=== PATIENT | female | born 1965 | race Caucasian/White ===

== ENCOUNTER 2018-06-13 20:09 | Emergency (ER) | payer SELFPAY ==
[2018-06-13 21:21] LABS: Urine Blood NEGATIVE (NEG); Urine Glucose NEGATIVE (NEG); Urine Protein NEGATIVE (NEG); Urine Specific Gravity >1.030 (1.005-1.030)
[2018-06-13] MEDS ORDERED: NA CHLORIDE 0.9% 1,000 ML ONE (21:31)
[2018-06-13 21:52] LABS: Absolute Lymphocytes (CBC) 2.6 K/uL (0.7-4.9); Absolute Neutrophil 5.4 K/uL (1.8-8.0); Basophils % 0.3 % (0-1.3); Eosinophils % 2.2 % (0-4.4); Hematocrit 37.6 % (36.0-45.0); Lymphocytes % 28.5 % (15.3-44.8); MCH 32.5 pg (27.0-35.0); MCV 93.4 fL (80-100); MPV 8.9 fL (7.6-11.3); Monocytes % 10.5 % (3.3-12.3); RBC Red Blood Cell Count 4.03 M/uL (3.86-4.86)
[2018-06-13 21:58] LABS: Protime INR 1.03
[2018-06-13 22:04] LABS: ALT/SGPT 22 U/L (12-78); AST/SGOT 15 U/L (15-37); Albumin 3.3 g/dL (3.4-5.0); Alkaline Phosphatase 105 U/L (45-117); BUN Blood Urea Nitrogen 17 mg/dL (7-18); Bicarbonate 28 mmol/L (21-32); Bilirubin Direct < 0.1 mg/dL (0-0.2); Bilirubin Total 0.2 mg/dL (0.2-1.0); CKMB Creatine Kinase MB < 1.0 ng/mL (0.3-3.6); Creatine Phosphokinase 64 U/L (26-192); Glucose Level 109 mg/dL (74-106); Lipase 270 U/L (73-393); Magnesium 2.2 mg/dL (1.8-2.4); NT PRO-BNP 94 pg/mL (<125); Potassium 3.6 mmol/L (3.5-5.1); Protein, Total 6.7 g/dL (6.4-8.2); Sodium Level 144 mmol/L (136-145)
--- NOTE | 2018-06-13 22:08 | RAD REPORT ---
EXAM DESCRIPTION: RAD - Chest Single View - 06/13/2018 9:32 pm CLINICAL HISTORY: Back pain, cough, chills, body aches COMPARISON: None. TECHNIQUE: AP portable chest image was obtained 2120 hours . FINDINGS: Lungs are clear. Heart and vasculature are normal. No measurable pleural effusion and no p neumothorax. No acute bone finding. Old rib trauma noted on the left. Old rib trauma noted lateral ri ght mid chest. No acute aortic findings suspected. IMPRESSION: No acute cardiopulmonary process.
[2018-06-13] MEDS ORDERED: AZITHROMYCIN 500 MG/250 ML BAG ONE (22:26)
[2018-06-13] MEDS ORDERED: CEFTRIAXONE/SWI 1gm 1 GM/10 ML SYR ONE (22:26)
--- NOTE | 2018-06-13 22:30 | EDPHYS ---
Physician Documentation [facility] Name: Yu Oakes Age: 52 yrs Sex: Female : 1965 Arrival Date: 06/13/2018 Time: 20:23 Bed 28 Private MD: ED Physician Eitan Beverly HPI: 06/13 20:55 This 52 yrs old Female presents to ER via Ambulatory with complaints of Body stacey aches, Cough, Back Pain. 20:55 The patient or guardian reports cough. Onset: The symptoms/episode began/occurred 2 stacey day(s) ago. Severity of symptoms: At their worst the symptoms were mild, moderate. Modifying factors: The symptoms are alleviated by nothing. Modifying factors: the symptoms are aggravated by heat. Associated signs and symptoms: Pertinent positives: fever. The patient has experienced similar episodes in the past, a few times. 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 - Social history:: Smoking status: Patient uses tobacco products, smokes one-half pack cigarettes per day. - Ebola Screening: : No symptoms or risks identified at this time. - Family history:: not pertinent. ROS: 20:55 Constitutional: Negative for fever, chills, and weight loss, Eyes: Negative for injury, stacey pain, redness, and discharge, ENT: Negative for injury, pain, and discharge, Neck: Negative for injury, pain, and swelling, Cardiovascular: Negative for chest pain, palpitations, and edema, Abdomen/GI: Negative for abdominal pain, nausea, vomiting, diarrhea, and constipation, Back: Negative for injury and pain, : Negative for injury, bleeding, discharge, and swelling, MS/Extremity: Negative for injury and deformity, Skin: Negative for injury, rash, and discoloration, Psych: Negative for depression, anxiety, suicide ideation, homicidal ideation, and hallucinations, Allergy/Immunology: Negative for hives, rash, and allergies, Endocrine: Negative for neck swelling, polydipsia, polyuria, polyphagia, and marked weight changes. 20:55 Respiratory: Positive for cough. 20:55 Neuro: Positive for weakness. Exam: 20:55 Constitutional: This is a well developed, well nourished patient who is awake, alert, stacey and in no acute distress. Head/Face: Normocephalic, atraumatic. Eyes: Pupils equal round and reactive to light, extra-ocular motions intact. Lids and lashes normal. Conjunctiva and sclera are non-icteric and not injected. Cornea within normal limits. Periorbital areas with no swelling, redness, or edema. ENT: Nares patent. No nasal discharge, no septal abnormalities noted. Tympanic membranes are normal and external auditory canals are clear. Oropharynx with no redness, swelling, or masses, exudates, or evidence of obstruction, uvula midline. Mucous membranes moist. Neck: Trachea midline, no thyromegaly or masses palpated, and no cervical lymphadenopathy. Supple, full range of motion without nuchal rigidity, or vertebral point tenderness. No Meningismus. Chest/axilla: Normal chest wall appearance and motion. Nontender with no deformity. No lesions are appreciated. Cardiovascular: Regular rate and rhythm with a normal S1 and S2. No gallops, murmurs, or rubs. Normal PMI, no JVD. No pulse deficits. Abdomen/GI: Soft, non-tender, with normal bowel sounds. No distension or tympany. No guarding or rebound. No evidence of tenderness throughout. Back: No spinal tenderness. No costovertebral tenderness. Full range of motion. Pelvic Exam: Normal external genitalia. Speculum exam with closed cervical os, no discharge or bleeding noted. Bimanual exam with normal adnexa, no adnexal or cervical motion tenderness. Normal uterus. Female : Normal external genitalia. Skin: Warm, dry with normal turgor. Normal color with no rashes, no lesions, and no evidence of cellulitis. MS/ Extremity: Pulses equal, no cyanosis. Neurovascular intact. Full, normal range of motion. Neuro: Awake and alert, GCS 15, oriented to person, place, time, and situation. Cranial nerves II-XII grossly intact. Motor strength 5/5 in all extremities. Sensory grossly intact. Cerebellar exam normal. Normal gait. Psych: Awake, alert, with orientation to person, place and time. Behavior, mood, and affect are within normal limits. 20:55 Respiratory: the patient does not display signs of respiratory distress, Respirations: normal, Breath sounds: bronchial sounds, rhonchi. 22:30 Neck: ROM/movement: is normal, no acute changes, Meningeal signs: are not present, stacey Kernig's sign is negative, Brudzinski's sign is negative. Vital Signs: 20:24 BP 102 / 80; Pulse 76; Resp 19; Temp 97.4; Pulse Ox 100% on R/A; Weight 61.23 kg; la1 Height 5 ft. 9 in. (175.26 cm); 21:23 BP 97 / 66; Pulse 58; Resp 22; Pulse Ox 99% on R/A; Pain 4/10; ed1 22:37 BP 106 / 71; Pulse 61; Resp 18; Pulse Ox 99% on R/A; kr2 23:51 BP 110 / 70; Pulse 60; Resp 17; Pulse Ox 99% on R/A; kr2 20:24 Body Mass Index 19.94 (61.23 kg, 175.26 cm) la1 MDM: 20:39 Patient medically screened. [facility] 20:57 Data reviewed: vital signs, nurses notes, lab test result(s), EKG, radiologic studies, [facility] plain films. 06/13 20:54 Order name: Basic Metabolic Panel; Complete Time: 22:29 [facility] 06/13 20:54 Order name: CBC with Diff; Complete Time: 22:29 [facility] 06/13 20:54 Order name: Ckmb; Complete Time: 22:29 [facility] 06/13 20:54 Order name: CPK; Complete Time: 22:29 [facility] 06/13 20:54 Order name: LFT's; Complete Time: 22:29 [facility] 06/13 20:54 Order name: Magnesium; Complete Time: 22:29 [facility] 06/13 20:54 Order name: NT PRO-BNP; Complete Time: 22:29 [facility] 06/13 20:54 Order name: PT-INR; Complete Time: 22:29 [facility] 06/13 20:54 Order name: Ptt, Activated; Complete Time: 22:29 [facility] 06/13 20:54 Order name: Troponin (emerg Dept Use Only); Complete Time: 22:29 [facility] 06/13 20:54 Order name: Lipase; Complete Time: 22:29 [facility] 06/13 20:54 Order name: Blood Culture Adult (2) [facility] 06/13 20:54 Order name: Flu; Complete Time: 22:29 [facility] 06/13 21:19 Order name: Urine Dipstick--Ancillary (enter results); Complete Time: 22:29 [facility] 06/13 20:54 Order name: XRAY Chest (1 view); Complete Time: 22:29 [facility] 06/13 20:54 Order name: EKG; Complete Time: 20:55 [facility] 06/13 20:54 Order name: Cardiac monitoring; Complete Time: 21:18 [facility] 06/13 20:54 Order name: EKG - Nurse/Tech; Complete Time: 22:18 [facility] 06/13 20:54 Order name: IV Saline Lock; Complete Time: 22:18 [facility] 06/13 20:54 Order name: Labs collected and sent; Complete Time: 22:19 [facility] 06/13 20:54 Order name: O2 Per Protocol; Complete Time: 21:19 [facility] 06/13 20:54 Order name: O2 Sat Monitoring; Complete Time: 21:19 [facility] 06/13 20:54 Order name: Urine Dipstick-Ancillary (obtain specimen); Complete Time: 21:19 [facility] Administered Medications: 21:29 Drug: NS 0.9% 1000 ml Route: IV; Rate: 1 bolus; Site: left forearm; ed1 23:49 Follow up: Response: No adverse reaction; IV Status: Completed infusion kr2 22:35 Drug: Rocephin - (cefTRIAXone) 1 grams Route: IVPB; Infused Over: 30 mins; Site: left kr2 forearm; 23:00 Follow up: Response: No adverse reaction; IV Status: Completed infusion kr2 22:45 Drug: Zithromax 500 mg Route: IVPB; Infused Over: 1 hrs; Site: left forearm; kr2 23:50 Follow up: Response: No adverse reaction; IV Status: Completed infusion kr2 Disposition: 06/13/18 22:29 Discharged to Home. Impression: Bronchitis, not specified as acute or chronic, Acute upper respiratory infection, unspecified, Tobacco abuse counseling. - Condition is Stable. - Discharge Instructions: Acute Bronchitis, Adult, Steps to Quit Smoking, Smoking Hazards, Upper Respiratory Infection, Adult, Cool Mist Vaporizer, Upper Respiratory Infection, Adult, Ucfq-vs-Isld, Cough, Adult, Mfin-ro-Vdod, Cough, Adult. - Prescriptions for Cheratussin AC 10- 100 mg/5 mL Oral liquid - take 10 milliliter by ORAL route every 4 hours; 150 milliliter. Zithromax Z- Sathish 250 mg Oral Tablet - take 1 tablet by ORAL route as directed for 5 days Day 1 - take two (2) tablets one time. Day 2, 3, 4 , 5 take one (1) tablet once daily.; 6 tablet. - Medication Reconciliation Form, Thank You Letter, Antibiotic Education, Prescription Opioid Use form. - Follow up: Private Physician; When: 2 - 3 days; Reason: Recheck today's complaints, Continuance of care, Re-evaluation by your physician. - Problem is new. - Symptoms have improved. Signatures: Dispatcher [employer] EDAZ Eitan Beverly MD MD cha Riggs, Erika, REIMBURSEMENT CONSULTANT REIMBURSEMENT CONSULTANT ed1 Nehemiah Valladares RN RN la1 Ashlie John RN RN kr2 Corrections: (The following items were deleted from the chart) 23:53 22:29 06/13/2018 22:29 Discharged to Home. Impression: Bronchitis, not specified as kr2 acute or chronic; Acute upper respiratory infection, unspecified; Tobacco abuse counseling. Condition is Stable. Discharge Instructions: Acute Bronchitis, Adult, Steps to Quit Smoking, Smoking Hazards, Upper Respiratory Infection, Adult, Cool Mist Vaporizer, Upper Respiratory Infection, Adult, Hlif-bt-Taxm, Cough, Adult, Azps-ar-Izjx, Cough, Adult. Prescriptions for Cheratussin AC 10-100 mg/5 mL Oral liquid - take 10 milliliter by ORAL route every 4 hours; 150 milliliter, Zithromax Z-Sathish 250 mg Oral Tablet - take 1 tablet by ORAL route as directed for 5 days Day 1 - take two (2) tablets one time. Day 2, 3, 4 , 5 take one (1) tablet once daily.; 6 tablet. and Forms are Medication Reconciliation Form, Thank You Letter, Antibiotic Education, Prescription Opioid Use. Follow up: Private Physician; When: 2 - 3 days; Reason: Recheck today's complaints, Continuance of care, Re-evaluation by your physician. Problem is new. Symptoms have improved. stacey
--- NOTE | 2018-06-13 22:30 | ER ---
Nurse's Notes [facility] Name: Yu Oakes Age: 52 yrs Sex: Female : 1965 Arrival Date: 06/13/2018 Time: 20:23 Bed 28 Private MD: Diagnosis: Bronchitis, not specified as acute or chronic;Acute upper respiratory infection, unspecified;Tobacco abuse counseling Presentation: 06/13 20:23 Presenting complaint: Patient states: I think I got head exhaustion last week and I la1 cant get over it. Pt reports body aches, back pain, cough, chills that all started about a week ago. Transition of care: patient was not received from another setting of care. Onset of symptoms was June 13, 2018. Risk Assessment: Do you want to hurt yourself or someone else? Patient reports no desire to harm self or others. Initial Sepsis Screen: Does the patient meet any 2 criteria? No. Patient's initial sepsis screen is negative. Does the patient have a suspected source of infection? No. Patient's initial sepsis screen is negative. Care prior to arrival: None. 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 - Social history:: Smoking status: Patient uses tobacco products, smokes one-half pack cigarettes per day. - Ebola Screening: : No symptoms or risks identified at this time. - Family history:: not pertinent. Screenin:27 Abuse screen: Denies threats or abuse. Denies injuries from another. Nutritional ed1 screening: No deficits noted. Tuberculosis screening: No symptoms or risk factors identified. Fall Risk None identified. Assessment: 20:27 General: Appears in no apparent distress. Behavior is calm, cooperative. Pain: ed1 Complains of pain in back Pain does not radiate. Quality of pain is described as aching, Pain began 2-3 days ago. Neuro: Level of Consciousness is awake, alert, obeys commands, Oriented to person, place, time, situation. Cardiovascular: Denies chest pain, Heart tones S1 S2 present. Respiratory: Reports cough that is non-productive, Airway is patent Respiratory effort is even, unlabored, Respiratory pattern is regular, symmetrical, Breath sounds are clear bilaterally. GI: No signs and/or symptoms were reported involving the gastrointestinal system. : No signs and/or symptoms were reported regarding the genitourinary system. EENT: No signs and/or symptoms were reported regarding the EENT system. Derm: Skin is pink, warm \T\ dry. Musculoskeletal: Circulation, motion, and sensation intact. 20:30 Reassessment: I agree with the above assessment. fc 21:23 Reassessment: Patient appears in no apparent distress at this time. No changes from ed1 previously documented assessment. Patient and/or family updated on plan of care and expected duration. Pain level reassessed. Patient is alert, oriented x 3, equal unlabored respirations, skin warm/dry/pink. Patient states symptoms have not improved. 22:37 Reassessment: Patient appears in no apparent distress at this time. Patient and/or kr2 family updated on plan of care and expected duration. Pain level reassessed. Patient is alert, oriented x 3, equal unlabored respirations, skin warm/dry/pink. Patient states feeling better. 23:06 Reassessment: Patient appears in no apparent distress at this time. Waiting for IV kr2 antibiotics to complete prior to discharge. 23:52 Reassessment: Patient appears in no apparent distress at this time. Patient and/or kr2 family updated on plan of care and expected duration. Pain level reassessed. Patient is alert, oriented x 3, equal unlabored respirations, skin warm/dry/pink. Patient states feeling better. Patient states symptoms have improved. Vital Signs: 20:24 BP 102 / 80; Pulse 76; Resp 19; Temp 97.4; Pulse Ox 100% on R/A; Weight 61.23 kg; la1 Height 5 ft. 9 in. (175.26 cm); 21:23 BP 97 / 66; Pulse 58; Resp 22; Pulse Ox 99% on R/A; Pain 4/10; ed1 22:37 BP 106 / 71; Pulse 61; Resp 18; Pulse Ox 99% on R/A; kr2 23:51 BP 110 / 70; Pulse 60; Resp 17; Pulse Ox 99% on R/A; kr2 20:24 Body Mass Index 19.94 (61.23 kg, 175.26 cm) la1 ED Course: 20:23 Patient arrived in ED. la1 20:24 Triage completed. la1 20:25 Arm band placed on right wrist. la1 20:26 Viry Bray LVN is Primary Nurse. ed1 20:27 Awaiting ED provider evaluation. ed1 20:27 Patient has correct armband on for positive identification. Bed in low position. Call ed1 light in reach. 20:39 Eitan Beverly MD is Attending Physician. stacey 21:25 Inserted saline lock: 22 gauge in left forearm, using aseptic technique. jp3 21:30 XRAY Chest (1 view) In Process Unspecified. EDMS 21:30 Initial lab(s) drawn, by fl, sent to lab. jp3 21:38 First set of blood cultures drawn drawn from left wrist via 21-gauge butterfly needle. jp3 21:45 Primary Nurse role handed off by Viry Bray LVN ed1 21:55 EKG done, by ED staff, reviewed by Eitan Beverly MD. kr2 21:58 Ashlie John, RN is Primary Nurse. kr2 22:00 Second set of blood cultures drawn drawn from Right A/C via 21-gauge butterfly needle. jp3 23:52 No provider procedures requiring assistance completed. IV discontinued, intact, kr2 bleeding controlled, No redness/swelling at site. Pressure dressing applied. Administered Medications: 21:29 Drug: NS 0.9% 1000 ml Route: IV; Rate: 1 bolus; Site: left forearm; ed1 23:49 Follow up: Response: No adverse reaction; IV Status: Completed infusion kr2 22:35 Drug: Rocephin - (cefTRIAXone) 1 grams Route: IVPB; Infused Over: 30 mins; Site: left kr2 forearm; 23:00 Follow up: Response: No adverse reaction; IV Status: Completed infusion kr2 22:45 Drug: Zithromax 500 mg Route: IVPB; Infused Over: 1 hrs; Site: left forearm; kr2 23:50 Follow up: Response: No adverse reaction; IV Status: Completed infusion kr2 Outcome: 22:29 Discharge ordered by . stacey 23:52 Discharged to home ambulatory. kr2 23:52 Condition: improved 23:52 Discharge instructions given to patient, Instructed on discharge instructions, follow up and referral plans. medication usage, Demonstrated understanding of instructions, follow-up care, medications, Prescriptions given X 2. 23:53 Patient left the ED. kr2 Signatures: Dispatcher [employer] EDMS Eitan Beverly MD MD cha Chretien, Felicia, RN RN Viry Guadalupe LVN REGISTERED PHARMACIST ed1 Nehemiah Valladares RN RN la1 Ashlie John RN RN kr2 Sadi Olivares jp3 Corrections: (The following items were deleted from the chart) 22:56 22:35 Rocephin - (cefTRIAXone) 1 grams IVPB in left antecubital over 30 mins kr2 kr2 22:56 22:45 Zithromax 500 mg IVPB in left antecubital over 1 hrs kr2 kr2
--- NOTE | 2018-06-14 06:52 | EKG ---
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
== END 2018-06-13 23:53 | disposition home or self-care (01) ==
LOC: ER 20:09
DX: J40 Bronchitis, not specified as acute or chronic (principal); J06.9 Acute upper respiratory infection, unspecified; F17.210 Nicotine dependence, cigarettes, uncomplicated
CPT/HCPCS: 36415; 71045; 80048; 80076; 81003; 82550; 82553; 83690; 83735; 83880; 84484; 85025; 85610; 85730; 87040; 87804; 93005; 96361; 96365; 96368; 99284; J0456; J0696; J7030

== ENCOUNTER 2019-01-16 12:37 | Emergency (ER) | payer SELFPAY ==
[2019-01-16] MEDS ORDERED: IBUPROFEN 400 MG TAB ONE (13:55)
--- NOTE | 2019-01-16 14:08 | EDPHYS ---
Physician Documentation [facility] Name: Yu Oakes Age: 53 yrs Sex: Female : 1965 Arrival Date: 01/16/2019 Time: 12:41 Bed 11 Private MD: None, None ED Physician Bogdan Min HPI: 01/16 14:00 This 53 yrs old Female presents to ER via Ambulatory with complaints of Flu cp Symptoms. 14:00 The patient or guardian reports flu symptoms, body aches. Onset: The symptoms/episode cp began/occurred yesterday. Associated signs and symptoms: Pertinent positives: earache, sore throat, headache. Severity of symptoms: in the emergency department the symptoms are unchanged despite home interventions. Historical: - Allergies: 13:07 Levaquin; ss - Home Meds: 13:07 None [Active]; ss - PMHx: 13:07 None; ss - PSHx: 13:07 Cholecystectomy; ss - Immunization history:: Adult Immunizations up to date. - Social history:: Smoking status: Patient uses tobacco products, smokes one-half pack cigarettes per day. - Ebola Screening: : Patient denies exposure to infectious person Patient denies travel to an Ebola-affected area in the 21 days before illness onset. ROS: 14:01 Eyes: Negative for injury, pain, redness, and discharge. cp 14:01 Constitutional: Positive for body aches, chills, Negative for fever, poor PO intake. 14:01 ENT: Positive for ear pain, sore throat, Negative for drainage from ear(s), difficulty swallowing, difficulty handling secretions. 14:01 Respiratory: Positive for cough, Negative for wheezing. 14:01 Abdomen/GI: Negative for abdominal pain, nausea, vomiting, and diarrhea. 14:01 Skin: Negative for cellulitis, rash. 14:01 Neuro: Positive for headache, Negative for altered mental status, dizziness, weakness. 14:01 All other systems are negative. Exam: 14:03 Head/Face: Normocephalic, atraumatic. cp 14:03 Constitutional: The patient appears in no acute distress, alert, awake, non-toxic, well developed, well nourished. 14:03 Eyes: Periorbital structures: appear normal, Conjunctiva: normal, no exudate, no injection, Lids and lashes: appear normal, bilaterally. 14:03 ENT: External ear(s): are unremarkable, Ear canal(s): are normal, clear, TM's: bulging, is not appreciated, bilaterally, erythema, that is mild, on the left, Examination of the other ear shows no obvious abnormality, Nose: is normal, Mouth: Lips: moist, Oral mucosa: moist, Posterior pharynx: Airway: no evidence of obstruction, patent, Tonsils: with erythema, no enlargement, no exudate, swelling, is not appreciated, erythema, that is moderate, exudate, is not appreciated, Voice: is normal. 14:03 Neck: ROM/movement: limited range of motion, is not appreciated, Meningeal signs: are not present, nuchal rigidity, is not appreciated. 14:03 Chest/axilla: Inspection: normal, Palpation: is normal, no crepitus, no tenderness. 14:03 Cardiovascular: Rate: normal, Rhythm: regular. 14:03 Respiratory: the patient does not display signs of respiratory distress, Respirations: normal, no use of accessory muscles, no retractions, no splinting, no tachypnea, labored breathing, is not present, Breath sounds: are clear throughout, no decreased breath sounds, no stridor, no wheezing. 14:03 Abdomen/GI: Exam negative for discomfort, distension, guarding, Inspection: abdomen appears normal. 14:03 Skin: cellulitis, is not appreciated, no rash present. Vital Signs: 13:05 BP 100 / 71; Pulse 73; Resp 17; Temp 97.5(TE); Pulse Ox 100% on R/A; Weight 63.5 kg; ss Height 5 ft. 9 in. (175.26 cm); Pain 7/10; 13:05 Body Mass Index 20.67 (63.50 kg, 175.26 cm) ss MDM: 13:28 Patient medically screened. cp 13:35 Differential diagnosis: bronchitis, flu, URI, strep throat, pneumonia. cp 14:06 Data reviewed: vital signs, nurses notes, lab test result(s), and as a result, I will cp discharge patient. 14:06 Counseling: I had a detailed discussion with the patient and/or guardian regarding: the cp historical points, exam findings, and any diagnostic results supporting the discharge/admit diagnosis, lab results, to return to the emergency department if symptoms worsen or persist or if there are any questions or concerns that arise at home. 01/16 13:08 Order name: Flu; Complete Time: 13:59 ss 01/16 13:59 Interpretation: Reviewed. cp 01/16 13:08 Order name: Strep; Complete Time: 13:59 ss 01/16 13:52 Order name: Throat Culture EDMS Administered Medications: 13:45 Drug: Ibuprofen 800 mg Route: PO; aa5 14:30 Follow up: Response: No adverse reaction; Pain is decreased aa5 Disposition: 14:41 Co-signature as Attending Physician, Bogdan Min MD. rn Disposition: 01/16/19 14:07 Discharged to Home. Impression: Acute pharyngitis, Otitis media, unspecified, left ear. - Condition is Stable. - Discharge Instructions: Otitis Media, Adult, Pharyngitis. - Prescriptions for Amoxicillin 875 mg Oral Tablet - take 1 tablet by ORAL route every 12 hours for 10 days; 20 tablet. Ibuprofen 800 mg Oral Tablet - take 1 tablet by ORAL route every 8 hours As needed take with food; 30 tablet. - Work release form, Medication Reconciliation Form, Thank You Letter, Antibiotic Education, Prescription Opioid Use form. - Follow up: Private Physician; When: 2 - 3 days; Reason: Worsening of condition. - Problem is new. - Symptoms have improved. Signatures: Dispatcher [employer] EDMS Bogdan Min MD MD rn Calderon, Audri, RN RN aa5 Laureen Aguillon RN RN ss Page, Corey, PA PA cp Corrections: (The following items were deleted from the chart) 14:35 14:07 01/16/2019 14:07 Discharged to Home. Impression: Acute pharyngitis; Otitis media, aa5 unspecified, left ear. Condition is Stable. Forms are Medication Reconciliation Form, Thank You Letter, Antibiotic Education, Prescription Opioid Use. Follow up: Private Physician; When: 2 - 3 days; Reason: Worsening of condition. Problem is new. Symptoms have improved. cp
--- NOTE | 2019-01-16 14:08 | ER ---
Nurse's Notes [facility] Name: Yu Oakes Age: 53 yrs Sex: Female : 1965 Arrival Date: 01/16/2019 Time: 12:41 Bed 11 Private MD: None, None Diagnosis: Acute pharyngitis;Otitis media, unspecified, left ear Presentation: 01/16 13:05 Presenting complaint: Patient states: sore throat, fever and body aches since ss yesterday. Transition of care: patient was not received from another setting of care. Onset of symptoms was January 15, 2019. Risk Assessment: Do you want to hurt yourself or someone else? Patient reports no desire to harm self or others. Initial Sepsis Screen: Does the patient meet any 2 criteria? No. Patient's initial sepsis screen is negative. Does the patient have a suspected source of infection? No. Patient's initial sepsis screen is negative. Care prior to arrival: None. 13:05 Method Of Arrival: Ambulatory ss 13:05 Acuity: JEFFERSON 4 Historical: - Allergies: 13:07 Levaquin; ss - Home Meds: 13:07 None [Active]; ss - PMHx: 13:07 None; ss - PSHx: 13:07 Cholecystectomy; ss - Immunization history:: Adult Immunizations up to date. - Social history:: Smoking status: Patient uses tobacco products, smokes one-half pack cigarettes per day. - Ebola Screening: : Patient denies exposure to infectious person Patient denies travel to an Ebola-affected area in the 21 days before illness onset. Screenin:25 Abuse screen: Denies threats or abuse. Nutritional screening: No deficits noted. aa5 Tuberculosis screening: No symptoms or risk factors identified. Fall Risk None identified. Assessment: 13:25 General: Appears uncomfortable, Behavior is calm, cooperative, Reports fever for 12-24 aa5 hours. Pain: Complains of pain in whole body Pain currently is 7 out of 10 on a pain scale. Quality of pain is described as aching, Pain began 1 day ago. Is continuous. Neuro: Level of Consciousness is awake, alert, obeys commands, Oriented to person, place, time, situation. Cardiovascular: Heart tones S1 S2 present Rhythm is regular. Respiratory: Airway is patent Respiratory effort is even, unlabored, Respiratory pattern is regular, symmetrical, Breath sounds are clear bilaterally. GI: No signs and/or symptoms were reported involving the gastrointestinal system. : No signs and/or symptoms were reported regarding the genitourinary system. EENT: Reports sore throat . Derm: Skin is pink, warm \T\ dry. Musculoskeletal: Range of motion: intact in all extremities. 14:30 Reassessment: Patient is alert, oriented x 3, equal unlabored respirations, skin aa5 warm/dry/pink. Vital Signs: 13:05 BP 100 / 71; Pulse 73; Resp 17; Temp 97.5(TE); Pulse Ox 100% on R/A; Weight 63.5 kg; ss Height 5 ft. 9 in. (175.26 cm); Pain 7/10; 13:05 Body Mass Index 20.67 (63.50 kg, 175.26 cm) ED Course: 12:41 Patient arrived in ED. mr 12:42 None, None is Private Physician. mr 13:06 Triage completed. ss 13:07 Arm band placed on right wrist. ss 13:25 Patient has correct armband on for positive identification. Bed in low position. Call aa5 light in reach. Side rails up X 1. 13:27 Eitan Balderas PA is PHCP. cp 13:28 Bogdan Min MD is Attending Physician. cp 13:29 Lara Yuan, TAMARA is Primary Nurse. aa5 14:30 No provider procedures requiring assistance completed. Patient did not have IV access aa5 during this emergency room visit. Administered Medications: 13:45 Drug: Ibuprofen 800 mg Route: PO; aa5 14:30 Follow up: Response: No adverse reaction; Pain is decreased aa5 Outcome: 14:07 Discharge ordered by . cp 14:30 Discharged to home ambulatory. aa5 14:30 Condition: stable 14:30 Discharge instructions given to patient, Instructed on discharge instructions, follow up and referral plans. medication usage, Demonstrated understanding of instructions, follow-up care, medications, Prescriptions given X 2. 14:35 Patient left the ED. aa5 Signatures: [place] Driver mr Lara Yuan, RN RN aa5 Laureen Aguillon RN RN Eitan Balderas PA PA cp
== END 2019-01-16 14:35 | disposition home or self-care (01) ==
LOC: ER 12:37
DX: J02.9 Acute pharyngitis, unspecified (principal); H66.92 Otitis media, unspecified, left ear; F17.210 Nicotine dependence, cigarettes, uncomplicated; Z88.1 Allergy status to other antibiotic agents
CPT/HCPCS: 87070; 87081; 87804; 99283

== ENCOUNTER 2021-03-05 02:00 | Emergency (ER) | payer SELFPAY ==
--- OUTSIDE RECORDS SUMMARY | 2021-03-05 02:03 | XMS REPORT | Continuity of Care Document ---
:1965 Author Organization [facility] t Address [address] [place] [address] Care Team Providers Name Role Phone Unavailable Unavailable Unavailable Problems This patient has no known problems. Allergies, Adverse Reactions, Alerts This patient has no known allergies or adverse reactions. Social History Smoking Status Start Date Stop Date Source Current Every Day Smoker [facility] Medications Ordered Filled Start Stop Current Ordering Indication Dosage Frequency Signature Comments Components Source Medication Medication Date Date Medication? Clinician (SIG) Name Name Kenalog 10 Kenalog 10 No Kenalog 10 [place] mg/mL mg/mL 3-23 mg/mL da suspension suspension 17:03: suspension [facility] for for 20 for al injectionTa injectionTa injectionT Health ke 60 mg by ke 60 mg by mynor 60 mg [place] injection injection by h route. route. injection Progra m route. Kenalog 10 Kenalog 10 No 60mg Kenalog 10 [place] mg/mL mg/mL mg/mL da suspension suspension suspension [facility] for for for al injection injection injection Health Take 60 mg Take 60 mg Take 60 mg [place] by by by h injection injection injection Program route. route. route. cefdinir cefdinir No 1capsul Q12H cefdinir [place] 300 mg 300 mg e(s) 300 mg da capsule capsule capsule [facility] p Take 1 Take 1 Take 1 al capsule capsule capsule Health every 12 every 12 every 12 [place] hours by hours by hours by h oral route oral route oral route Program for 10 for 10 for 10 days. days. days. 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 Plan of Care Planned Activity Planned Date Details Comments Source Diagnostic Test 2020-01-30 CBC w/ auto diff [place] [facility] Pending 00:00:00 [code = CBC w/ Health Outrea ch auto diff] Program Diagnostic Test 2020-01-30 CMP, serum or [facility] Pending 00:00:00 plasma [code = Health Outrea ch CMP, serum or Program plasma] Diagnostic Test 2020-01-30 lipid panel, serum [facility] [facility] applic[facility] Pending 00:00:00 [code = lipid [facility] h panel, serum] Program Diagnostic Test 2020-01-30 HbA1c (hemoglobin [place] [facility] Pending 00:00:00 A1c), blood [code Health Out reach = HbA1c Program (hemoglobin A1c), blood] Diagnostic Test 2020-01-30 TSH, [facility] Pending 00:00:00 ultra-sensitive, Health Outr each serum [code = TSH, Program ultra-sensitive, serum] Encounters Start End Encounter Admission Attending Care Care Encounter Source Date/Time Date/Time Type Type Clinicians Facility Department ID 2020-01-29 2020-01-29 Temitope [place] - [id number] [place] 00:00:00 00:00:00 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 Program Results This patient has no known results.
--- NOTE | 2021-03-05 02:26 | ER ---
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 Coronavirus screen: At this time, the client does not indicate any symptoms associated with coronavirus-19. Ebola Screen: Patient negative for fever greater than or equal to 101.5 degrees Fahrenheit, and additional compatible Ebola Virus Disease symptoms Patient denies exposure to infectious person. Patient denies travel to an Ebola-affected area in the 21 days before illness onset. No symptoms or risks identified at this time. Initial Sepsis Screen: Does the patient meet any 2 criteria? No. Patient's initial sepsis screen is negative. Does the patient have a suspected source of infection? No. Patient's initial sepsis screen is negative. Risk Assessment: Do you want to hurt yourself or someone else? Patient reports no desire to harm self or others. Onset of symptoms was March 05, 2021. 02:17 Method Of Arrival: Wheelchair 02:17 Acuity: JEFFERSON 4 iw Historical: - Allergies: 02:20 Levaquin; iw - Home Meds: 02:20 None [Active]; iw - PMHx: 02:20 None; iw - PSHx: 02:20 Cholecystectomy; ectopic ; iw - Immunization history:: Adult Immunizations not up to date. - Social history:: Smoking status: Patient reports the use of cigarette tobacco products, smokes one-half pack cigarettes per day. - Family history:: not pertinent. - Hospitalizations: : No recent hospitalization is reported. Screenin:20 Abuse screen: Denies threats or abuse. Nutritional screening: No deficits noted. jb4 Tuberculosis screening: No symptoms or risk factors identified. Fall Risk None identified. Assessment: 02:20 General: Appears in no apparent distress. uncomfortable, Behavior is calm, cooperative, jb4 appropriate for age. Pain: Complains of pain in right knee Pain does not radiate. Pain currently is 10 out of 10 on a pain scale. Neuro: Level of Consciousness is awake, alert, obeys commands, Oriented to person, place, time, situation. Cardiovascular: Patient's skin is warm and dry. Respiratory: Airway is patent Respiratory effort is even, unlabored, Respiratory pattern is regular, symmetrical. GI: No signs and/or symptoms were reported involving the gastrointestinal system. : No signs and/or symptoms were reported regarding the genitourinary system. EENT: No signs and/or symptoms were reported regarding the EENT system. Derm: Skin is intact, Skin is pink, warm \T\ dry. Musculoskeletal: Circulation, motion, and sensation intact. Range of motion: intact in all extremities. Vital Signs: 02:17 BP 108 / 73; Pulse 89; Resp 16; Temp 98.0; Pulse Ox 98% on R/A; Weight 70.31 kg; Height iw 5 ft. 9 in. (175.26 cm); Pain 10/10; 02:17 Body Mass Index 22.89 (70.31 kg, 175.26 cm) ED Course: 02:03 Patient arrived in ED. ag3 02:08 Bogdan Min MD is Attending Physician. rn 02:20 Triage completed. iw 02:21 Arm band placed on. iw 02:22 Kalyan Alvarado RN is Primary Nurse. jb4 03:00 No provider procedures requiring assistance completed. Patient did not have IV access jb4 during this emergency room visit. Administered Medications: 02:33 Drug: TORadol (ketorolac) 30 mg Route: IM; Site: right deltoid; jb4 03:01 Follow up: Response: No adverse reaction; Marked relief of symptoms; Pain is decreased jb4 Outcome: 02:26 Discharge ordered by . rn 03:00 Discharged to home via wheelchair. jb4 03:00 Condition: stable 03:00 Discharge instructions given to patient, Instructed on discharge instructions, follow up and referral plans. medication usage, Demonstrated understanding of instructions, follow-up care, medications, Prescriptions given X 1. 03:01 Patient left the ED. jb4 Signatures: Corrine Heller RN RN Bogdan iMn MD MD rn Bryson, James, RN RN jb Denise Mora ag3
--- NOTE | 2021-03-05 02:26 | EDPHYS ---
Physician Documentation [facility] Name: Yu Oakes Age: 55 yrs Sex: Female : 1965 Arrival Date: 03/05/2021 Time: 02:03 Bed 14 Private MD: ED Physician Bogdan Min HPI: 03/05 02:22 This 55 yrs old Female presents to ER via Wheelchair with complaints of Knee rn Pain. 02:22 The patient presents with pain. The complaints affect the right knee. Onset: The rn symptoms/episode began/occurred yesterday. Modifying factors: The symptoms are alleviated by elevating leg, remaining still, the symptoms are aggravated by movement, weight bearing, bending knee. Severity of symptoms: At their worst the symptoms were moderate, in the emergency department the symptoms are unchanged. The patient has not experienced similar symptoms in the past. The patient has not recently seen a physician. Reports bent down, felt "something turn in knee", felt instant pain, hard to walk, no direct strike or trauma. No hx of gout or joint infection. Reports better with elevation, worse with any movement, but drove herself here. . Historical: - Allergies: 02:20 Levaquin; iw - Home Meds: 02:20 None [Active]; iw - PMHx: 02:20 None; iw - PSHx: 02:20 Cholecystectomy; ectopic ; iw - Immunization history:: Adult Immunizations not up to date. - Social history:: Smoking status: Patient reports the use of cigarette tobacco products, smokes one-half pack cigarettes per day. - Family history:: not pertinent. - Hospitalizations: : No recent hospitalization is reported. ROS: 02:22 Constitutional: Negative for fever, chills, and weight loss, MS/Extremity: + right knee rn pain and injury Neuro: Negative forweakness, numbness, tingling Exam: 02:22 Constitutional: This is a well developed, well nourished patient who is awake, alert, rn appears uncomfortable MS/ Extremity: Pulses equal, no cyanosis. Neurovascular intact. Mild painful ROM right knee, no effusion, no ecchymosis, + mild tenderness along medial right knee, no patellar abnormality or pain. Vital Signs: 02:17 BP 108 / 73; Pulse 89; Resp 16; Temp 98.0; Pulse Ox 98% on R/A; Weight 70.31 kg; Height iw 5 ft. 9 in. (175.26 cm); Pain 10/10; 02:17 Body Mass Index 22.89 (70.31 kg, 175.26 cm) iw MDM: 02:08 Patient medically screened. rn 02:22 Differential diagnosis: tendonitis, ligament sprain vs tear, meniscus injury. Data rn reviewed: vital signs, nurses notes, and as a result, I will discharge patient. Counseling: I had a detailed discussion with the patient and/or guardian regarding: the historical points, exam findings, and any diagnostic results supporting the discharge/admit diagnosis, the need for outpatient follow up, to return to the emergency department if symptoms worsen or persist or if there are any questions or concerns that arise at home. Special discussion: I discussed with the patient/guardian in detail that at this point there is no indication for admission to the hospital. It is understood, however, that if the symptoms persist or worsen the patient needs to return immediately for re-evaluation. Further emergent ED testing is not indicated at this point in time. I discussed with the patient/guardian in detail the need to arrange with the PCP or specialist further outpatient testing, MRI, Based on the history and exam findings, there is no indication for further emergent testing or inpatient evaluation. I discussed with the patient/guardian the need to see the orthopedic surgeon for further evaluation of the symptoms. I discussed with the patient/guardian the need to see the primary care provider for further evaluation of the symptoms. 03/05 02:18 Order name: Knee Immobilizer; Complete Time: :33 rn Administered Medications: :33 Drug: TORadol (ketorolac) 30 mg Route: IM; Site: right deltoid; jb4 03:01 Follow up: Response: No adverse reaction; Marked relief of symptoms; Pain is decreased jb4 Disposition: 03/05/21 02:26 Discharged to Home. Impression: Sprain of other specified parts of right knee. - Condition is Stable. - Discharge Instructions: How to Use a Knee Brace, Knee Immobilizer, Knee Sprain. - Prescriptions for Tramadol 50 mg Oral Tablet - take 1 tablet by ORAL route every 8 hours as needed; 15 tablet. - Medication Reconciliation Form, Thank You Letter, Antibiotic Education, Prescription Opioid Use, Work release form form. - Follow up: Private Physician; When: As needed; Reason: Recheck today's complaints, Re-evaluation by your physician. - Problem is new. - Symptoms are unchanged. Signatures: Corrine Heller RN RN iw Nieto, Roman, MD MD rn Bryson, James, RN RN jb4 Corrections: (The following items were deleted from the chart) 03:01 02:26 03/05/2021 02:26 Discharged to Home. Impression: Sprain of other specified parts jb4 of right knee. Condition is Stable. Forms are Medication Reconciliation Form, Thank You Letter, Antibiotic Education, Prescription Opioid Use. Follow up: Private Physician; When: As needed; Reason: Recheck today's complaints, Re-evaluation by your physician. Problem is new. Symptoms are unchanged. rn
[2021-03-05] MEDS ORDERED: KETOROLAC 30 MG/ML INJ ONE (02:47)
[2021-03-05 03:12] VITALS: BP 108/73; TEMP 98; O2SAT 98
== END 2021-03-05 03:01 | disposition home or self-care (01) ==
LOC: ER 02:00
DX: S83.8X1A Sprain of other specified parts of right knee, initial encounter (principal); F17.210 Nicotine dependence, cigarettes, uncomplicated; Z88.1 Allergy status to other antibiotic agents
CPT/HCPCS: 96372; 99283

== ENCOUNTER 2021-03-24 10:19 | Emergency (ER) | payer SELFPAY ==
--- OUTSIDE RECORDS SUMMARY | 2021-03-24 10:20 | XMS REPORT | Continuity of Care Document ---
:1965 Author Organization [facility] t Address [address] [place] [address] Care Team Providers Name Role Phone Unavailable Unavailable Unavailable Problems This patient has no known problems. Allergies, Adverse Reactions, Alerts This patient has no known allergies or adverse reactions. 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 [facility] Pending 00:00:00 [code = lipid [facility] h panel, serum] Program Diagnostic Test 2020-01-30 HbA1c (hemoglobin [place] [facility] Pending 00:00:00 A1c), blood [code Health Out reach = HbA1c Program (hemoglobin A1c), blood] Diagnostic Test 2020-01-30 TSH, [facility] Pending 00:00:00 ultra-sensitive, Health Outr each serum [code = TSH, Program ultra-sensitive, serum] Encounters Start End Encounter Admission Attending Care Care Encounter Source Date/Time Date/Time Type Type Clinicians Facility Department ID 2020-01-29 2020-01-29 Tem[place] - [id number] 3 [place] 00:00:00 00:00:00 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 Program Results This patient has no known results.
[2021-03-24 12:32] LABS: SARS-COV-2 RT PCR NEGATIVE (NEGATIVE)
[2021-03-24] MEDS ORDERED: IPRATROPIUM BROM 0.5MG/2.5ML ONE (13:01)
[2021-03-24] MEDS ORDERED: predniSONE 20 MG TAB ONE (13:01)
[2021-03-24] MEDS ORDERED: ALBUTEROL 2.5 MG/3 ML NEB SOL ONE (13:01)
--- NOTE | 2021-03-24 13:12 | ER ---
Nurse's Notes [facility] Name: Yu Oakes Age: 55 yrs Sex: Female : 1965 Arrival Date: 03/24/2021 Time: 10:19 Bed Treatment Private MD: Diagnosis: Acute sinusitis Presentation: 03/24 10:39 Chief complaint: Patient states: 03/19/2021 S/S started. Cough, congestion, body aches, ca1 headache, chills, nausea, sore throat. Coronavirus screen: Client denies travel out of the [place] in the last 14 days. chills, congestion, cough unrelated to allergies, headache, muscle pain, nausea, sore throat, Client presents with at least one sign or symptom that may indicate coronavirus-19. Standard/surgical mask placed on the client. Provider contacted for isolation considerations. Ebola Screen: Patient negative for fever greater than or equal to 101.5 degrees Fahrenheit, and additional compatible Ebola Virus Disease symptoms Patient denies exposure to infectious person. Patient denies travel to an Ebola-affected area in the 21 days before illness onset. No symptoms or risks identified at this time. Initial Sepsis Screen: Does the patient meet any 2 criteria? No. Patient's initial sepsis screen is negative. Does the patient have a suspected source of infection? No. Patient's initial sepsis screen is negative. Risk Assessment: Do you want to hurt yourself or someone else? Patient reports no desire to harm self or others. Onset of symptoms was March 19, 2021. 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 Flu vaccine is not up to date. - Social history:: Smoking status: Patient reports the use of cigarette tobacco products, smokes one-half pack cigarettes per day. Screenin:51 Abuse screen: Denies threats or abuse. Denies injuries from another. Nutritional ld1 screening: No deficits noted. Tuberculosis screening: No symptoms or risk factors identified. Fall Risk None identified. Assessment: 11:51 General: Appears in no apparent distress. comfortable, Behavior is calm, cooperative, ld1 appropriate for age. Pain: Denies pain. Neuro: Level of Consciousness is awake, alert, obeys commands, Oriented to person, place, time, situation. Cardiovascular: Capillary refill < 3 seconds Patient's skin is warm and dry. Respiratory: Airway is patent Respiratory effort is even, unlabored, Respiratory pattern is regular, symmetrical. GI: Abdomen is flat, non-distended. : No signs and/or symptoms were reported regarding the genitourinary system. EENT: No signs and/or symptoms were reported regarding the EENT system. Derm: No signs and/or symptoms reported regarding the dermatologic system. Musculoskeletal: No signs and/or symptoms reported regarding the musculoskeletal system. Vital Signs: 10:39 BP 107 / 77; Pulse 58; Resp 16 S; Temp 98.4(O); Pulse Ox 98% on R/A; Weight 71.67 kg ca1 (R); Height 5 ft. 9 in. (175.26 cm) (R); Pain 8/10; 11:51 BP 114 / 77; Pulse 56; Resp 18; Temp 98.5(O); Pulse Ox 100% on R/A; Pain 0/10; ld1 10:39 Body Mass Index 23.33 (71.67 kg, 175.26 cm) ca1 ED Course: 10:19 Patient arrived in ED. ds1 10:30 Yolanda [facility]eng [facility]C [facility]. kb 10:30 Nory Segovia MD is Attending Physician. kb 10:42 Triage completed. ca1 10:43 Arm band placed on right wrist. ca1 10:50 Strep Sent. ca1 11:51 Funmi Garcia, TAMARA is Primary Nurse. ld1 11:51 Patient has correct armband on for positive identification. Call light in reach. Side ld1 rails up X 1. Pulse ox on. NIBP on. Door closed. Noise minimized. Warm blanket given. 11:51 No provider procedures requiring assistance completed. ld1 13:19 Patient did not have IV access during this emergency room visit. ld1 Administered Medications: 12:47 Drug: predniSONE 40 mg Route: PO; ld1 13:00 Follow up: Response: No adverse reaction ld1 12:48 Drug: DuoNeb (albuterol 2.5 mg, ipratropium 0.5 mg) (3:1) (2.5 mg - 0.5 mg) 3 ml Route: ld1 Nebulizer; 13:15 Follow up: Response: No adverse reaction ld1 Outcome: 13:11 Discharge ordered by MD. martinez 13:19 Discharged to home ambulatory. ld1 13:19 Condition: stable 13:19 Discharge instructions given to patient, Instructed on discharge instructions, follow up and referral plans. medication usage, Demonstrated understanding of instructions, follow-up care, medications. 13:19 Patient left the ED. ld1 Signatures: Yolanda Zeng, AUTOMATIC TIRE TESTER-C AUTOMATIC TIRE TESTER-Yovana Paz ds1 Sariah Perez RN RN ca1 Funmi Garcia RN RN ld1 Corrections: (The following items were deleted from the chart) 11:49 10:50 Influenza Screen (A \T\ B)+BA.LAB.BRZ drawn and sent. ca1 EDMS 11:49 10:50 CORONAVIRUS+MR.LAB.BRZ drawn and sent. ca1 EDMS
--- NOTE | 2021-03-24 13:12 | EDPHYS ---
Physician Documentation [facility] Name: Yu Oakes Age: 55 yrs Sex: Female : 1965 Arrival Date: 03/24/2021 Time: 10:19 Bed Treatment Private MD: ED Physician Nory Segovia HPI: 03/24 19:02 This 55 yrs old Female presents to ER via Ambulatory with complaints of kb Chills Body Aches. 19:02 The patient or guardian reports cough, flu symptoms, myalgias. Severity of symptoms: At kb their worst the symptoms were moderate, in the emergency department the symptoms are unchanged. Modifying factors: The symptoms are alleviated by nothing, the symptoms are aggravated by nothing. Associated signs and symptoms: Pertinent positives: rhinorrhea, sore throat, Pertinent negatives: chest pain, diarrhea, ear ache, fever, nausea, vomiting. The patient has not experienced similar symptoms in the past. The patient has not recently seen a physician. 19:03 Onset: The symptoms/episode began/occurred 5 day(s) ago. 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 Flu vaccine is not up to date. - Social history:: Smoking status: Patient reports the use of cigarette tobacco products, smokes one-half pack cigarettes per day. ROS: 19:01 Cardiovascular: Negative for chest pain, palpitations, and edema. kb 19:01 Constitutional: Positive for body aches, chills, malaise. 19:01 ENT: Positive for sinus congestion, sore throat. 19:01 Respiratory: Positive for cough, Negative for dyspnea on exertion, hemoptysis, orthopnea, pleurisy, shortness of breath, sputum production, wheezing. 19:01 Neuro: Positive for headache. 19:01 All other systems are negative. Exam: 18:47 Constitutional: This is a well developed, well nourished patient who is awake, alert, kb and in no acute distress. Head/Face: Normocephalic, atraumatic. ENT: Moist Mucous membranes Cardiovascular: Regular rate and rhythm with a normal S1 and S2. No gallops, murmurs, or rubs. No pulse deficits. Abdomen/GI: Soft, non-tender. No distention Skin: Warm, dry with normal turgor. Normal color. MS/ Extremity: Pulses equal, no cyanosis. Neurovascular intact. Full, normal range of motion. Neuro: Awake and alert, GCS 15, oriented to person, place, time, and situation. Moves all extremities. Normal gait. Psych: Awake, alert, with orientation to person, place and time. Behavior, mood, and affect are within normal limits. 18:47 Respiratory: the patient does not display signs of respiratory distress, Respirations: normal, Breath sounds: wheezing: expiratory that is mild, is scattered. Vital Signs: 10:39 BP 107 / 77; Pulse 58; Resp 16 S; Temp 98.4(O); Pulse Ox 98% on R/A; Weight 71.67 kg ca1 (R); Height 5 ft. 9 in. (175.26 cm) (R); Pain 8/10; 11:51 BP 114 / 77; Pulse 56; Resp 18; Temp 98.5(O); Pulse Ox 100% on R/A; Pain 0/10; ld1 10:39 Body Mass Index 23.33 (71.67 kg, 175.26 cm) ca1 MDM: 11:39 Patient medically screened. kb 18:46 Data reviewed: vital signs, nurses notes. Data interpreted: Pulse oximetry: on room air kb is 100 %. Interpretation: normal. Counseling: I had a detailed discussion with the patient and/or guardian regarding: the historical points, exam findings, and any diagnostic results supporting the discharge/admit diagnosis, lab results, the need for outpatient follow up, a family practitioner, to return to the emergency department if symptoms worsen or persist or if there are any questions or concerns that arise at home. 03/24 10:44 Order name: Strep; Complete Time: 11:55 ca1 03/24 11:56 Order name: Throat Culture EDMS 03/24 12:33 Order name: COVID-19/FLU A+B; Complete Time: 12:44 EDMS Administered Medications: 12:47 Drug: predniSONE 40 mg Route: PO; ld1 13:00 Follow up: Response: No adverse reaction ld1 12:48 Drug: DuoNeb (albuterol 2.5 mg, ipratropium 0.5 mg) (3:1) (2.5 mg - 0.5 mg) 3 ml Route: ld1 Nebulizer; 13:15 Follow up: Response: No adverse reaction ld1 Disposition: 03/24/21 13:11 Discharged to Home. Impression: Acute sinusitis. - Condition is Stable. - Discharge Instructions: Sinusitis, Adult, [id number]. - Prescriptions for Augmentin 875- 125 mg Oral Tablet - take 1 tablet by ORAL route every 12 hours for 10 days; 20 tablet. Prednisone 20 mg Oral Tablet - take 1 tablet by ORAL route once daily for 5 days; 5 tablet. Albuterol Sulfate 90 mcg/actuation - inhale 1-2 puff by INHALATION route every 4-6 hours; 1 Inhaler. - Work release form, Medication Reconciliation Form, Thank You Letter, Antibiotic Education, Prescription Opioid Use form. - Follow up: Emergency Department; When: As needed; Reason: Worsening of condition. Follow up: Private Physician; When: 2 - 3 days; Reason: Recheck today's complaints, Continuance of care, Re-evaluation by your physician. Addendum: 04/01/2021 19:21 Co-signature as Attending Physician, Nory Segovia MD. m a2 Signatures: Dispatcher [employer] EDSD Yolanda Zeng, PLANISHING HAMMER OPERATOR-C PLANISHING HAMMER OPERATOR-CkNory Elizondo MD MD ma2 Sariah Perez RN RN ca1 Funmi Garcia RN RN ld1 Corrections: (The following items were deleted from the chart) 03/24 11:49 10:45 Influenza Screen (A \T\ B)+BA.LAB.BRZ ordered. EDSD EDMS 11:49 10:45 CORONAVIRUS+MR.LAB.BRZ ordered. EDSD EDMS 13:19 13:11 03/24/2021 13:11 Discharged to Home. Impression: Acute sinusitis. Condition is ld1 Stable. Forms are Medication Reconciliation Form, Thank You Letter, Antibiotic Education, Prescription Opioid Use. Follow up: Emergency Department; When: As needed; Reason: Worsening of condition. Follow up: Private Physician; When: 2 - 3 days; Reason: Recheck today's complaints, Continuance of care, Re-evaluation by your physician. kb
[2021-03-24 13:47] VITALS: BP 114/77; TEMP 98.5; O2SAT 100
== END 2021-03-24 13:19 | disposition home or self-care (01) ==
LOC: ER 10:19
DX: J01.90 Acute sinusitis, unspecified (principal); Z20.822 Contact with and (suspected) exposure to COVID-19; F17.210 Nicotine dependence, cigarettes, uncomplicated
CPT/HCPCS: 0240U; 87070; 87081; 99284; J7512

== ENCOUNTER 2021-10-30 15:52 | Emergency (ER) | payer SELFPAY ==
--- OUTSIDE RECORDS SUMMARY | 2021-10-30 15:55 | XMS REPORT | Continuity of Care Document ---
:[address] [facility] t Address [address] [place] [address] Care Team Providers Name Role Phone KAREN_Tata Attending Clinician Unavailable Karen Attending Clinician [phone] ANATOLIY Attending Clinician Unavailable BRANDON Admitting Clinician Unavailable ANATOLIY Admitting Clinician Unavailable Payers Payer Name Policy Type Policy Number Effective Date Expiration Date S ource Problems This patient has no known problems. Allergies, Adverse Reactions, Alerts This patient has no known allergies or adverse reactions. Social History Smoking Status Start Date Stop Date Source Current Every Day Smoker [facility] Medications Ordered Filled Start [...] h route. route. injection Progra m route. cefdinir cefdinir No 1capsul Q12H cefdinir [place] 300 mg 300 mg e(s) 300 mg da capsule capsule capsule [facility] p Take 1 Take 1 Take 1 al capsule capsule capsule Health every 12 every 12 every 12 Out reac hours by hours by hours by h oral route oral route oral route Program for 10 for 10 for 10 days. days. days. Kenalog 10 Kenalog 10 No 60mg Kenalog 10 [place] mg/mL mg/mL mg/mL da suspension suspension suspension [facility] for for for al injection injection injection Health Take 60 mg Take 60 mg Take 60 mg Outre[facility] by by by h injection injection injection Program route. route. route. Vital Signs Vital Name Observation Time Observation Value Comments Source BP Diastolic 2020-01-29 00:00:00 74 mm[Hg] [facility] Height 2020-01-29 00:00:00 69 [in_i] [facility] BMI (Body Mass 2020-01-29 00:00:00 23.2 kg/m2 [place] regulatory consultant [facility] Index) [facility] BP Systolic 2020-01-29 00:00:00 110 mm[Hg] [facility] Body Weight 2020-01-29 00:00:00 157.2 [lb_av] [facility] Procedures This patient has no known procedures. Plan of Care Planned Activity Planned Date Details Comments Source Diagnostic Test 2020-01-30 CBC w/ auto diff [place] [facility] Pending 00:00:00 [code = CBC w/ Health Outrea ch auto diff] Program Diagnostic Test 2020-01-30 CMP, serum or [facility] Pending 00:00:00 plasma [code = Health Outrea ch CMP, serum or Program plasma] Diagnostic Test 2020-01-30 lipid panel, serum [place] regulatory consultant [facility] Pending 00:00:00 [code = lipid Health Outre[facility] h panel, serum] Program Diagnostic Test 2020-01-30 HbA1c (hemoglobin [place] [facility] Pending 00:00:00 A1c), blood [code Health Out reach = HbA1c Program (hemoglobin A1c), blood] Diagnostic Test 2020-01-30 TSH, [facility] Pending 00:00:00 ultra-sensitive, Health Outr each serum [code = TSH, Program ultra-sensitive, serum] Encounters Start End Encounter Admission Attending Care Care Encounter Source Date/Time Date/Time Type Type Clinicians Facility Department ID 2021-08-28 2021-08-28 Outpatient [facility]_S [facility] [id number] [place] 11:14:00 11:14:[facility] 2021-08-28 2021-08-28 Outpatient Karen [facility] [id number] 00:00:00 00:00:00 [place] [id number] 2021-08-27 2021-08-27 Outpatient BRANDON [facility] [id number] [place] 11:31:00 11:31:00 [facility] 2020-02-05 2020-02-05 Outpatient MYRA_EL[facility] 820 [place] 12:23:00 12:23:00 _ANN [facility]30 [facility] 2020-01-29 2020-01-29 Outpatient MYRA_ELVA DECK[facility] 820 [place] 05:22:00 05:22:00 _ANN 0323 [facility] 2020-01-29 2020-01-29 Elva DECKER [place] - [id number] 3 [place] 00:00:00 00:00:00 Shannon Gray HARDWOOD FALLER: [address] [facility] [address], [facility], [place] [id number] h , Ph. Program Results This patient has no known results.
[2021-10-30] MEDS ORDERED: ACETAMINOPHEN 500 MG TAB ONE (16:18)
[2021-10-30 17:48] LABS: SARS-COV-2 RT PCR POSITIVE (NEGATIVE)
--- NOTE | 2021-10-30 17:59 | EDPHYS ---
Physician Documentation [facility] Name: Yu Oakes Age: 56 yrs Sex: Female : 1965 Arrival Date: 10/30/2021 Time: 15:59 Bed Waiting Private MD: ED Physician Ghanshyam Reyes HPI: 10/31 00:14 This 56 yrs old Female presents to ER via Ambulatory with complaints of Headache, kb Chills,Body Aches. 00:14 The patient or guardian reports cough, that is intermittent, described as mild, flu kb symptoms, myalgias. Onset: The symptoms/episode began/occurred this morning. Severity of symptoms: At their worst the symptoms were moderate, in the emergency department the symptoms are unchanged. Modifying factors: The symptoms are alleviated by nothing, the symptoms are aggravated by nothing. Associated signs and symptoms: The patient has no apparent associated signs or symptoms. The patient has not experienced similar symptoms in the past. The patient has not recently seen a physician. Pt reports headache, bodyaches and fatigue that started this morning. reports slight cough. 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 - Social history:: Smoking status: Patient reports the use of cigarette tobacco products, smokes one-half pack cigarettes per day. ROS: 10/31 00:14 Abdomen/GI: Negative for abdominal pain, nausea, vomiting, diarrhea, and constipation. kb Constitutional: Positive for body aches, fatigue, malaise. Respiratory: Positive for cough, Negative for dyspnea on exertion, hemoptysis, orthopnea, pleurisy, shortness of breath, sputum production, wheezing. All other systems are negative. Exam: 00:15 Constitutional: This is a well developed, well nourished patient who is awake, alert, kb and in no acute distress. Head/Face: Normocephalic, atraumatic. ENT: Moist Mucous membranes Cardiovascular: Regular rate and rhythm with a normal S1 and S2. No gallops, murmurs, or rubs. No pulse deficits. Respiratory: Respirations even and unlabored. No increased work of breathing. Talking in full sentences Skin: Warm, dry with normal turgor. Normal color. MS/ Extremity: Pulses equal, no cyanosis. Neurovascular intact. Full, normal range of motion. Neuro: Awake and alert, GCS 15, oriented to person, place, time, and situation. Moves all extremities. Normal gait. Psych: Awake, alert, with orientation to person, place and time. Behavior, mood, and affect are within normal limits. Vital Signs: 10/30 16:10 BP 114 / 70; Pulse 78; Resp 19; Temp 98.6; Pulse Ox 100% ; Weight 67.13 kg; Pain 10/10; jl7 MDM: 16:13 Patient medically screened. kb 10/31 00:15 Data reviewed: vital signs, nurses notes. Data interpreted: Pulse oximetry: on room air kb is 100 %. Interpretation: normal. Counseling: I had a detailed discussion with the patient and/or guardian regarding: the historical points, exam findings, and any diagnostic results supporting the discharge/admit diagnosis, lab results, the need for outpatient follow up, a family practitioner, to return to the emergency department if symptoms worsen or persist or if there are any questions or concerns that arise at home. 10/30 16:13 Order name: COVID-19/FLU A+B (Document "Date of Onset" if Symptomatic); Complete Time: kb 17:54 Administered Medications: 10/30 16:15 Drug: Tylenol 1000 mg Route: PO; ss 18:03 Follow up: Response: No adverse reaction ss Disposition Summary: 10/30/21 17:59 Discharge Ordered Location: Home kb Condition: Stable kb Diagnosis - Coronavirus infection, unspecified kb Followup: kb - With: Emergency Department - When: As needed - Reason: Worsening of condition Followup: kb - With: Private Physician - When: 2 - 3 days - Reason: Recheck today's complaints, Continuance of care, Re-evaluation by your physician Discharge Instructions: - Discharge Summary Sheet kb - Viral Respiratory Infection, [id number]-[id number] kb - COVID-19 kb Forms: - Medication Reconciliation Form kb - Thank You Letter kb - Antibiotic Education kb - Prescription Opioid Use kb Addendum: 11/04/2021 13:09 Co-signature as Attending Physician, Ghanshyam Reyes MD I agree with the assessment and k dr plan of care. Signatures: Dispatcher [employer] Yolanda Lynch, ADMISSIONS RECRUITER-C ADMISSIONS RECRUITER-Ghanshyam Rosales MD MD kdr Laureen Aguillon, RN RN ss Krystle Vega RN RN jl7
--- NOTE | 2021-10-30 17:59 | ER ---
Nurse's Notes [facility] Name: Yu Oakes Age: 56 yrs Sex: Female : 1965 Arrival Date: 10/30/2021 Time: 15:59 Bed Waiting Private MD: Diagnosis: Coronavirus infection, unspecified Presentation: 10/30 16:10 Chief complaint: Patient states: BRANDON, body aches, fatigue since this morning. [facility] Coronavirus screen: fatigue, headache, muscle pain, Client presents with at least one sign or symptom that may indicate coronavirus-19. Standard/surgical mask placed on the client. Provider contacted for isolation considerations. Ebola Screen: No symptoms or risks identified at this time. Initial Sepsis Screen: Does the patient meet any 2 criteria? No. Patient's initial sepsis screen is negative. Does the patient have a suspected source of infection? No. Patient's initial sepsis screen is negative. Risk Assessment: Do you want to hurt yourself or someone else? Patient reports no desire to harm self or others. Onset of symptoms was October 30, 2021. 16:10 Method Of Arrival: Ambulatory [facility] 16:10 Acuity: JEFFERSON 4 7 Triage Assessment: 16:12 Headache History: The patient has had previous headaches and this one is similar to jl7 previous episodes. General: Appears in no apparent distress. uncomfortable, ill, Behavior is cooperative, drowsy. Pain: Complains of pain in brandon Pain currently is 10 out of 10 on a pain scale. Pain began gradually, Also complains of no other associated symptoms. Neuro: Level of Consciousness is awake, alert, obeys commands, Oriented to person, place, time, situation. 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 - Social history:: Smoking status: Patient reports the use of cigarette tobacco products, smokes one-half pack cigarettes per day. Screenin:01 Abuse screen: Denies threats or abuse. Denies injuries from another. Nutritional ss screening: No deficits noted. Tuberculosis screening: Never had TB. Fall Risk None identified. Assessment: 16:10 Reassessment: STEFAN Guerrero in triage assessing pt. jl7 18:01 Reassessment: Patient appears in no apparent distress at this time. Patient and/or ss family updated on plan of care and expected duration. Pain level reassessed. Patient is alert, oriented x 3, equal unlabored respirations, skin warm/dry/pink. Vital Signs: 16:10 BP 114 / 70; Pulse 78; Resp 19; Temp 98.6; Pulse Ox 100% ; Weight 67.13 kg; Pain 10/10; jl7 ED Course: 15:59 Patient arrived in ED. mr 15:59 Yolanda Zeng FNP-C [facility]. kb 15:59 Ghanshyam Reyes MD is Attending Physician. kb 16:12 Triage completed. jl7 16:12 Arm band placed on right wrist. jl7 16:14 COVID swab sent to lab. Flu and/or RSV swab sent to lab. jl7 16:19 Patient placed in waiting room, Patient notified of wait time. jl7 18:01 Laureen Aguillon, RN is Primary Nurse. ss 18:01 Patient has correct armband on for positive identification. ss 18:01 No provider procedures requiring assistance completed. Patient did not have IV access ss during this emergency room visit. Administered Medications: 16:15 Drug: Tylenol 1000 mg Route: PO; ss 18:03 Follow up: Response: No adverse reaction ss Outcome: 17:59 Discharge ordered by MD. kb 18:01 Discharged to home ambulatory. ss 18:01 Condition: good 18:01 Discharge instructions given to patient, Instructed on discharge instructions, follow up and referral plans. Demonstrated understanding of instructions, follow-up care. 18:02 Patient left the ED. ss Signatures: Yolanda Zeng FNP-C FNP-Ckb Temitope Driver mr Laureen Aguillon, RN RN Krystle Vega RN RN jl7
[2021-10-30 18:19] VITALS: BP 114/70; TEMP 98.6; O2SAT 100
== END 2021-10-30 18:02 | disposition home or self-care (01) ==
LOC: ER 15:52
DX: U07.1 COVID-19 (principal); F17.210 Nicotine dependence, cigarettes, uncomplicated; Z88.1 Allergy status to other antibiotic agents
CPT/HCPCS: 0240U; 99283

== ENCOUNTER 2022-01-19 10:24 | Emergency (ER) | payer OTHER, SELFPAY ==
--- OUTSIDE RECORDS SUMMARY | 2022-01-19 10:26 | XMS REPORT | Continuity of Care Document ---
:1965 Author Organization [facility] t Address [address] [place] [address] Care Team Providers Name Role Phone KAREN_Tata Attending Clinician Unavailable Karen Attending Clinician [phone] ANATOLIY Attending Clinician Unavailable BRANDON Admitting Clinician Unavailable ANATOLIY Admitting Clinician Unavailable Payers Payer Name Policy Type Policy Number Effective Date Expiration Date S ource Problems This patient has no known problems. Allergies, Adverse Reactions, Alerts This patient has no known allergies or adverse reactions. 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 Plan of Care Planned Activity Planned Date Details Comments Source Diagnostic Test 2020-01-30 CBC w/ auto diff [place] [facility] Pending 00:00:00 [code = CBC w/ Health Outrea ch auto diff] Program Diagnostic Test 2020-01-30 CMP, serum or [place] [facility] Pending 00:00:00 plasma [code = Health Outrea ch CMP, serum or Program plasma] Diagnostic Test 2020-01-30 lipid panel, serum [place] flattening press operator [facility] Pending 00:00:00 [code = lipid Health Outre[facility] h panel, serum] Program Diagnostic Test 2020-01-30 HbA1c (hemoglobin [place] [facility] Pending 00:00:00 A1c), blood [code Health Out reach = HbA1c Program (hemoglobin A1c), blood] Diagnostic Test 2020-01-30 TSH, [place] [facility] Pending 00:00:00 ultra-sensitive, Health Outr each serum [code = TSH, Program ultra-sensitive, serum] Encounters Start End Encounter Admission Attending Care Care Encounter Source Date/Time Date/Time Type Type Clinicians Facility Department ID 2021-08-28 2021-08-28 Outpatient [facility] [id number] [place] 11:14:00 11[facility]14:00 [facility] 2021-08-28 2021-08-28 Outpatient Karen [facility] [id number] 00:00:00 00:00:00 [place] [id number] 2021-08-27 2021-08-27 Outpatient BRANDON [facility] [id number] [place] 11:31:00 11:31:00 [facility] 2020-02-05 2020-02-05 Outpatient MYRA_EL[facility] [address] [place] 12:23:00 12:23:00 _ANN 0330 [facility] 2020-01-29 2020-01-29 Outpatient MYRA_ELVA DECK[facility] 820 [place] 05:22:00 05:22:00 _ANN 0323 [facility] 2020-01-29 2020-01-29 Elva DECKER [place] - [id number] 3 [place] 00:00:00 00:00:00 Shannon Gray ROVING DEPARTMENT END 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 Program Results This patient has no known results.
[2022-01-19] MEDS ORDERED: ONDANSETRON 4 MG (ODT) TAB ONE (11:10)
[2022-01-19 12:37] LABS: Absolute Lymphocytes (CBC) 2.5 K/uL (0.7-4.9); MPV 9.3 fL (7.6-11.3)
[2022-01-19 12:56] LABS: SARS-COV-2 RT PCR POSITIVE (NEGATIVE)
[2022-01-19 13:00] LABS: ALT/SGPT 26 U/L (12-78); AST/SGOT 18 U/L (15-37); Albumin 4.1 g/dL (3.4-5.0); Alkaline Phosphatase 139 U/L (45-117); BUN Blood Urea Nitrogen 23 mg/dL (7-18); Bicarbonate 18 mmol/L (21-32); Bilirubin Total 0.2 mg/dL (0.2-1.0); Glucose Level 82 mg/dL (74-106); Lipase 85 U/L (73-393); Potassium 4.2 mmol/L (3.5-5.1); Protein, Total 8.3 g/dL (6.4-8.2); Sodium Level 139 mmol/L (136-145)
[2022-01-19 13:10] LABS: Bilirubin Direct < 0.1 mg/dL (0-0.2)
[2022-01-19] MEDS ORDERED: NA CHLORIDE 0.9% 500 ML ONE (13:46)
[2022-01-19 14:09] LABS: Urine Bacteria <20 /HPF (<20); Urine RBC <5 /HPF (NONE SEEN)
--- NOTE | 2022-01-19 14:34 | RAD REPORT ---
EXAM DESCRIPTION: CT - Abdomen Pelvis W Contrast - 01/19/2022 1:59 pm CLINICAL HISTORY: Abdominal pain/vomiting COMPARISON: none. TECHNIQUE: Computed axial tomography of the abdomen pelvis was obtained. 100 cc Isovue-300 was admin istered intravenously. Oral contrast was not requested which limits evaluation of bowel and appendix. All CT scans are performed using dose optimization technique as appropriate and may include automated exposure control or mA/KV adjustment according to patient size. FINDINGS: Cholecystectomy 5 centimeter hepatic cyst. Spleen, pancreas and adrenals unremarkable. Small renal cysts. There is no evidence of diverticulitis. Tubal ligation clips Slight anterior subluxation L4 on L5 Fluid within nondilated bowel IMPRESSION: Fluid within nondilated bowel may indicate an enteritis
--- NOTE | 2022-01-19 15:19 | EDPHYS ---
Physician Documentation [facility] Name: Yu Oakes Age: 56 yrs Sex: Female : 1965 Arrival Date: 01/19/2022 Time: 10:27 Bed 5 Private MD: ED Physician Ghanshyam Reyes HPI: 01/19 11:30 This 56 yrs old Female presents to ER via Ambulatory with complaints of cp Nausea/Vomiting/Diarrhea. 11:30 The patient presents to the emergency department with nausea, that is moderate, cp vomiting, that is intermittent. 11:30 Onset: The symptoms/episode began/occurred this morning. 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 Flu vaccine is not up to date. - Social history:: Smoking status: Patient reports the use of cigarette tobacco products, smokes one-half pack cigarettes per day. ROS: 11:35 Constitutional: Positive for body aches, chills, Negative for fever, poor PO intake. cp 11:35 Eyes: Negative for injury, pain, redness, and discharge. cp 11:35 ENT: Positive for sore throat, Negative for drainage from ear(s), ear pain, difficulty swallowing, difficulty handling secretions. 11:35 Respiratory: Positive for cough, Negative for shortness of breath, wheezing. 11:35 Abdomen/GI: Positive for nausea, vomiting, and diarrhea. Exam: 11:40 Constitutional: The patient appears in no acute distress, alert, awake, cp non-diaphoretic, non-toxic, well developed, well nourished. 11:40 Head/Face: Normocephalic, atraumatic. cp 11:40 Eyes: Periorbital structures: appear normal, Conjunctiva: normal, no exudate, no injection, Sclera: no appreciated abnormality, Lids and lashes: appear normal, bilaterally. 11:40 ENT: External ear(s): are unremarkable, Ear canal(s): are normal, clear, TM's: dullness, bilaterally, Nose: is normal, Mouth: Lips: moist, Oral mucosa: moist, Posterior pharynx: Airway: no evidence of obstruction, patent, Tonsils: no enlargement, no exudate, Uvula: midline, erythema, that is mild, exudate, is not appreciated. 11:40 Neck: ROM/movement: is normal, is supple, without pain, no range of motions limitations, no meningismus, Lymph nodes: no appreciated lymphadenopathy. 11:40 Chest/axilla: Inspection: normal. 11:40 Cardiovascular: Rate: normal, Rhythm: regular, Edema: is not appreciated, JVD: is not appreciated. 11:40 Respiratory: the patient does not display signs of respiratory distress, Respirations: normal, no use of accessory muscles, no retractions, labored breathing, is not present, Breath sounds: bronchial sounds, that are mild, are heard diffusely, decreased breath sounds, are not appreciated, stridor, is not appreciated, + upper airway congestion. 11:40 Abdomen/GI: Inspection: abdomen appears normal, Bowel sounds: active, all quadrants, Palpation: soft, in all quadrants, mild abdominal tenderness, in all quadrants, rebound tenderness, is not appreciated, voluntary guarding, is not appreciated, involuntary guarding, is not appreciated. 11:40 Back: CVA tenderness, is absent. 11:40 Skin: cellulitis, is not appreciated, no rash present. 11:40 Neuro: Orientation: to person, place \T\ time. Mentation: is normal, Motor: moves all fours, strength is normal, Sensation: is normal. 14:50 ECG was reviewed by the Attending Physician. cp Vital Signs: 11:00 BP 117 / 82; Pulse 67; Resp 17; Temp 98.2; Pulse Ox 100% ; Weight 65.77 kg; Height 5 ap3 ft. 9 in. (175.26 cm); 12:00 BP 117 / 82; Pulse 57; Resp 17 S; Pulse Ox 99% ; Pain 0/10; jg9 12:30 BP 118 / 79; Pulse 55; Resp 17 S; Pulse Ox 96% on R/A; jg9 13:48 BP 121 / 83; Pulse 59; Resp 16; Pulse Ox 98% on R/A; ab2 14:30 BP 119 / 97; Pulse 50; Resp 18 S; Pulse Ox 100% on R/A; jg9 15:28 BP 117 / 90; Pulse 56; Resp 16; Pulse Ox 98% on R/A; ab2 11:00 Body Mass Index 21.41 (65.77 kg, 175.26 cm) ap3 MDM: 12:06 Patient medically screened. 15:18 Data reviewed: vital signs, nurses notes, lab test result(s), EKG, radiologic studies, cp CT scan. 15:18 Differential diagnosis: gastritis, pancreatitis, appendicitis, diverticulitis, viral cp gastroenteritis, gastroenteritis, pneumonia, influenza, COVID-19. Test interpretation: by ED physician or midlevel provider: ECG. Counseling: I had a detailed discussion with the patient and/or guardian regarding: the historical points, exam findings, and any diagnostic results supporting the discharge/admit diagnosis, lab results, radiology results, to return to the emergency department if symptoms worsen or persist or if there are any questions or concerns that arise at home. Response to treatment: the patient's symptoms have markedly improved after treatment, and as a result, I will discharge patient. 01/19 11:02 Order name: Strep; Complete Time: 13:08 01/19 13:08 Interpretation: Reviewed. 01/19 11:03 Order name: Group A Streptococcus Rapid Sc; Complete Time: 12:03 [facility] 01/19 11:30 Order name: Throat Culture [facility] 01/19 12:10 Order name: Basic Metabolic Panel; Complete Time: 13:38 [facility] [place] 13:38 Interpretation: Normal except: CL 114; CO2 18; BUN 23; GFR 69. 01/19 12:06 Order name: PO challenge; Complete Time: 12:31 01/19 12:10 Order name: CBC with Diff; Complete Time: 13:08 [facility] [place] 13:42 Interpretation: Normal except: WBC 11.70; RBC 5.00; HGB 15.5; HCT 47.0; Reviewed. 01/19 12:10 Order name: Hepatic Function; Complete Time: 13:38 [facility] [place] 01/19 15:17 Interpretation: Normal except: ALK 139; TP 8.3; GLOB 4.2; A/G 1.0. 01/19 12:10 Order name: Lipase; Complete Time: 13:38 [facility] [place] 01/19 13:38 Order name: Urine Microscopic Only; Complete Time: 15:02 01/19 15:02 Interpretation: Reviewed. cp 01/19 13:42 Order name: CT Abd/Pelvis - IV Contrast Only; Complete Time: 15:02 cp 01/19 15:02 Interpretation: Report reviewed. cp 01/19 12:10 Order name: IV Saline Lock; Complete Time: 12:10 jg9 01/19 12:10 Order name: Labs collected and sent; Complete Time: 12:30 jg9 01/19 13:38 Order name: Urine Dipstick-Ancillary (obtain specimen); Complete Time: 13:48 01/19 14:46 Order name: EKG - Nurse/Tech; Complete Time: 14:46 jg9 EC:50 Rate is 46 beats/min. Rhythm is regular. IA interval is normal. QRS interval is normal. cp QT interval is normal. T waves are Inverted in lead aVR. Interpreted by me. Reviewed by me. Administered Medications: 11:10 Drug: Zofran (Ondansetron) 4 mg Route: PO; ap3 12:10 Follow up: Response: No adverse reaction; Nausea is decreased 9 13:48 Drug: NS 0.9% 500 ml Route: IV; Rate: bolus; Site: right forearm; ab2 Disposition: 19:30 Co-signature as Attending Physician, Ghanshyam Reyes MD I agree with the assessment and kdr plan of care. Disposition Summary: 01/19/22 15:18 Discharge Ordered Location: Home cp Problem: new cp Symptoms: have improved cp Condition: Stable cp Diagnosis - Nausea with vomiting, unspecified cp - SARS-associated coronavirus as the cause of diseases classified elsewhere cp Followup: cp - With: Private Physician - When: 2 - 3 days - Reason: Worsening of condition Discharge Instructions: - Discharge Summary Sheet cp - Nausea and Vomiting, Adult cp - Aspirin and Your Heart cp - COVID-19 cp - Things to Know about the COVID-19 Pandemic - [facility] cp - 10 Things You Can Do to Manage Your COVID-19 Symptoms at Home - [facility] cp - COVID-19: Quarantine vs. Isolation - [facility] cp - Prevent the Spread of COVID-19 if You Are Sick - [facility] cp Forms: - Medication Reconciliation Form cp - Thank You Letter cp - Antibiotic Education cp - Prescription Opioid Use cp Prescriptions: - Zofran 4 mg Oral Tablet - take 1 tablet by ORAL route every 12 hours As needed; 20 tablet; Refills: 0, cp Product Selection Permitted Signatures: Dispatcher [employer] Ghanshyam Wallace MD MD kdr Eitan Balderas PA PA cp Prokisch, Amanda RN RN ap3 Yu Maloney RN RN jg9 Hugh Wolfe Corrections: (The following items were deleted from the chart) 13:42 13:08 Reviewed. cp cp
--- NOTE | 2022-01-19 15:19 | ER ---
Nurse's Notes [facility] Name: Yu Oakes Age: 56 yrs Sex: Female : 1965 Arrival Date: 01/19/2022 Time: 10:27 Bed 5 Private MD: Diagnosis: Nausea with vomiting, unspecified;SARS-associated coronavirus as the cause of diseases classified elsewhere Presentation: 01/19 11:00 Chief complaint: Patient states: she woke up this morning experiencing nausea, ap3 vomiting, accompanied with body aches, head ache and sore throat. Patient reports feeling fine when she went to bed last night. Coronavirus screen: At this time, the client does not indicate any symptoms associated with coronavirus-19. Ebola Screen: No symptoms or risks identified at this time. Initial Sepsis Screen: Does the patient meet any 2 criteria? No. Patient's initial sepsis screen is negative. Does the patient have a suspected source of infection? No. Patient's initial sepsis screen is negative. Risk Assessment: Do you want to hurt yourself or someone else? Patient reports no desire to harm self or others. Onset of symptoms was January 19, 2022 at 03:00. 11:00 Method Of Arrival: Ambulatory ap3 11:00 Acuity: JEFFERSON 3 ap3 Triage Assessment: 11:02 General: Appears uncomfortable, Behavior is calm, cooperative. Pain: generalized body ap3 aches. Neuro: Level of Consciousness is awake, alert, obeys commands, Oriented to person, place, time, situation, Appropriate for age. Cardiovascular: Patient's skin is warm and dry. Respiratory: Reports cough that is Airway. GI: Reports lower abdominal pain, upper abdominal pain, intolerance of fluids, intolerance of food, nausea. 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 Flu vaccine is not up to date. - Social history:: Smoking status: Patient reports the use of cigarette tobacco products, smokes one-half pack cigarettes per day. Screenin:02 Abuse screen: Denies threats or abuse. Nutritional screening: No deficits noted. ap3 Tuberculosis screening: No symptoms or risk factors identified. Fall Risk None identified. No fall in past 12 months (0 pts). Assessment: 12:10 Reassessment: No changes from previously documented assessment. GI: Reports diarrhea, jg9 nausea, vomiting. Vital Signs: 11:00 BP 117 / 82; Pulse 67; Resp 17; Temp 98.2; Pulse Ox 100% ; Weight 65.77 kg; Height 5 ap3 ft. 9 in. (175.26 cm); 12:00 BP 117 / 82; Pulse 57; Resp 17 S; Pulse Ox 99% ; Pain 0/10; jg9 12:30 BP 118 / 79; Pulse 55; Resp 17 S; Pulse Ox 96% on R/A; jg9 13:48 BP 121 / 83; Pulse 59; Resp 16; Pulse Ox 98% on R/A; ab2 14:30 BP 119 / 97; Pulse 50; Resp 18 S; Pulse Ox 100% on R/A; jg9 15:28 BP 117 / 90; Pulse 56; Resp 16; Pulse Ox 98% on R/A; ab2 11:00 Body Mass Index 21.41 (65.77 kg, 175.26 cm) ap3 ED Course: 10:27 Patient arrived in ED. kz 11:01 Triage completed. ap3 11:01 Eitan Balderas PA is PHCP. cp 11:01 Ghanshyam Reyes MD is Attending Physician. cp 11:02 Arm band placed on right wrist. ap3 11:04 EKG done, Flu and/or RSV swab sent to lab. Strep swab sent to lab. ap3 12:03 Yu Maloney, TAMARA is Primary Nurse. jg9 12:10 Inserted saline lock: 22 gauge in right forearm, using aseptic technique. Blood jg9 collected. 12:11 Patient has correct armband on for positive identification. Bed in low position. Call jg9 light in reach. 13:48 Urine Microscopic Only Sent. ab2 13:59 CT Abd/Pelvis - IV Contrast Only In Process Unspecified. EDMS 14:48 No apparent distress. Resting quietly. Awaiting radiology results. jg9 15:28 No provider procedures requiring assistance completed. IV discontinued, intact, ab2 bleeding controlled, No redness/swelling at site. Pressure dressing applied. Administered Medications: 11:10 Drug: Zofran (Ondansetron) 4 mg Route: PO; ap3 12:10 Follow up: Response: No adverse reaction; Nausea is decreased jg9 13:48 Drug: NS 0.9% 500 ml Route: IV; Rate: bolus; Site: right forearm; ab2 Outcome: 15:18 Discharge ordered by MD. cp 15:28 Discharged to home ambulatory. ab2 15:28 Condition: good 15:28 Discharge instructions given to patient, Instructed on discharge instructions, follow up and referral plans. medication usage, Demonstrated understanding of instructions, follow-up care, medications, Prescriptions given X 1. 15:29 Patient left the ED. ab2 Signatures: Dispatcher [employer] EDMS Eitan Balderas PA PA cp Prokisch, Amanda RN RN ap3 Yu Maloney RN RN jg9 Hugh Wolfe ab2 Susie Zabala
[2022-01-19 15:45] VITALS: TEMP 98.2
[2022-01-19 15:52] VITALS: BP 117/90; O2SAT 98
--- NOTE | 2022-01-21 07:27 | EKG ---
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
== END 2022-01-19 15:29 | disposition home or self-care (01) ==
LOC: ER 10:24
DX: U07.1 COVID-19 (principal); F17.210 Nicotine dependence, cigarettes, uncomplicated; Z88.1 Allergy status to other antibiotic agents
CPT/HCPCS: 93005; 87070; 85025; 80048; 36415; 80076; 87081; 81015; 83690; 0240U; 74177; 99284; Q9967; J7040

== ENCOUNTER 2023-01-02 07:28 | Emergency (ER) | payer OTHER ==
--- OUTSIDE RECORDS SUMMARY | 2023-01-02 07:31 | XMS REPORT | Continuity of Care Document ---
:1965 Author Organization [facility] t Address [address] [place] [address] Care Team Providers Name Role Phone BRANDON Attending Clinician Unavailable Dmitri Mckenzie Attending Clinician [phone] Violette Phillips Attending Clinician [phone] ANATOLIY Attending Clinician Unavailable BRANDON Admitting Clinician Unavailable ANATOLIY Admitting Clinician Unavailable Payers Payer Name Policy Type Policy Number Effective Date Expiration Date S ource Problems This patient has no known problems. Allergies, Adverse Reactions, Alerts Allergy Allergy Status Severity Reaction(s) Onset Inactive Treating Comm ents Source Name Type Date Date Clinician Levaquin Allergy Active Severe Other [place] [facility] Social History Smoking Status Start Date Stop Date Source Current Every Day Smoker [place] [facility] Heavy Tobacco Smoker [place] Comm [facility] Medications Ordered Filled Start Stop Current Ordering [...] route. cefdinir cefdinir No 1capsul Q12H cefdinir [place] 300 mg 300 mg e(s) 300 mg Communi capsule capsule capsule ty Take 1 Take 1 Take 1 Hospita capsule capsule capsule l every 12 every 12 every 12 Cli nics hours by hours by hours by oral route oral route oral route for 10 for 10 for 10 days. days. days. prednisone prednisone No 1 BID prednisone [place] 20 mg 20 mg 20 mg [facility] tablet Take tablet Take tablet ty 1 tablet 1 tablet Take 1 Hospi ta twice a day twice a day tablet l by oral by oral twice a Clinic s route for 5 route for 5 day by days. days. oral route for 5 days. amoxicillin amoxicillin No 1 Q12H amoxicilli [place] 875 mg 875 mg n 875 mg Communi tablet Take tablet Take tablet ty 1 tablet 1 tablet Take 1 Hospi ta every 12 every 12 tablet l hours by hours by every 12 Cli nics oral route oral route hours by for 10 for 10 oral route days. days. for 10 days. prednisone prednisone No prednisone [place] 20 mg 20 mg 20 mg [facility] tablet 3 po tablet 3 po tablet 3 ty first day, first day, po first Hospita 2 po second 2 po second day, 2 po l day, then 1 day, then 1 second Clinics po qd until po qd until day, then finished, finished, 1 po qd total 5 total 5 until days days finished, total 5 days Vital Signs Vital Name Observation Time Observation Value Comments Source BP Diastolic 2022-04-08 00:00:00 64 mm[Hg] [facility] s Height 2022-04-08 00:00:00 69 [in_i] [facility] s BMI (Body Mass 2022-04-08 00:00:00 21.8 kg/m2 [facility]) [facility] s BP Systolic 2022-04-08 00:00:00 101 mm[Hg] [facility] s Body Weight 2022-04-08 00:00:00 2358.4 [oz_av] [facility] s BP Diastolic 2021-08-28 00:00:00 76 mm[Hg] [facility] s Height 2021-08-28 00:00:00 69 [in_i] [facility] s BMI (Body Mass 2021-08-28 00:00:00 22.4 kg/m2 [facility]) [facility] s BP Systolic 2021-08-28 00:00:00 115 mm[Hg] [facility] s Body Weight 2021-08-28 00:00:00 2432 [oz_av] [facility] s BP Diastolic 2020-01-29 00:00:00 74 mm[Hg] [place] [facility] Height 2020-01-29 00:00:00 69 [in_i] [place] [facility] BMI (Body Mass 2020-01-29 00:00:00 23.2 kg/m2 [facility] [employer] [facility] Index) [facility] Outreach Program BP Systolic 2020-01-29 00:00:00 110 mm[Hg] [place] [facility] Body Weight 2020-01-29 00:00:00 157.2 [lb_av] [place] [facility] Procedures Procedure Date / Time Performed Performing Clinician Sourc e Tubal Ligation [facility] Cholecystectomy [facility] Plan of Care Planned Activity Planned Date Details Comments Source Diagnostic Test Pending 2020-01-30 CBC w/ auto diff [place] [facility] 00:00:00 [code = CBC w/ Health Outrea ch auto diff] Program Diagnostic Test Pending 2020-01-30 CMP, serum or [place] [facility] 00:00:00 plasma [code = Health Outrea ch CMP, serum or Program plasma] Diagnostic Test Pending 2020-01-30 lipid panel, [place] [facility] [facility] 00:00:00 serum [code = Health Outreac h lipid panel, Program serum] Diagnostic Test Pending 2020-01-30 HbA1c (hemoglobin [place] [facility] 00:00:00 A1c), blood [code Health Out reach = HbA1c Program (hemoglobin A1c), blood] Diagnostic Test Pending 2020-01-30 TSH, [place] [facility] [facility] 00:00:00 ultra-sensitive, Health Outr each serum [code = Program TSH, ultra-sensitive, serum] Instructions [place] [facility] s Encounters Start End Encounter Admission Attending Care Care Encounter Source Date/Time Date/Time Type Type Clinicians Facility Department ID 2022-04-08 2022-04-08 Outpatient ALANS [facility] [id number] [place] 02:27:00 02:27:00 0601 [facility] 2022-04-08 2022-04-08 Outpatient Jonah [facility] [id number] 00:00:00 00:00:00 Dmitri [id number] Gonzales [id number] 2022-04-08 2022-04-08 Dmitri [facility] [place] 00:00:00 00:00:00 Anthony [facility] DO: [address] [facility], [facility] [address] [place] [phone] , Ph. 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 2021-08-28 2021-08-28 Outpatient Alan [facility] [id number] 00:00:00 00:00:00 Violette [id number] 2021-08-27 2021-08-27 Outpatient BRANDON [facility] [id number] [place] 11:31:00 11:31:00 1020 [facility] 2020-02-05 2020-02-05 Outpatient MYRA_TEM[facility] DECKER [id number] [place] 12:23:00 12:23:00 _ANN [facility] 2020-01-29 2020-01-29 Outpatient MYRA_TEMITOPE DECKER NDKEVEN [id number] [place] 05:22:00 05:22:00 _ANN [id number] [facility] 2020-01-29 2020-01-29 Temitope DECKER [place] - [id number] [place] 00:00:00 00:00:00 Shannon Gray da FLOOR COVERING PRINTER ASSISTANT: 1700 [facility] BACA - BRIANNE Macario, [facility], [place] Outre [phone] h , Ph. Program Results This patient has no known results.
[2023-01-02] MEDS ORDERED: KETOROLAC 30 MG/ML INJ ONE (08:16)
[2023-01-02] MEDS ORDERED: FENTANYL CITR 100 MCG/2 ML ONE (08:16)
[2023-01-02] MEDS ORDERED: dexAMETHasone 10 MG/ML VIAL ONE (08:16)
[2023-01-02] MEDS ORDERED: ONDANSETRON 4 MG/2 ML VIAL ONE (08:16)
[2023-01-02] MEDS ORDERED: CEFTRIAXONE 1000 MG/VIAL ONE (08:16)
[2023-01-02] MEDS ORDERED: NA CHLORIDE 0.9% 1,000 ML ONE (08:16)
[2023-01-02 08:44] LABS: Absolute Lymphocytes (CBC) 2.3 K/uL (0.7-4.9); Hematocrit 40.7 % (36.0-45.0); Lymphocytes % 26.7 % (15.3-44.8); MCV 92.7 fL (80-100); MPV 8.3 fL (7.6-11.3); RBC Red Blood Cell Count 4.38 M/uL (3.86-4.86)
--- NOTE | 2023-01-02 08:53 | RAD REPORT ---
EXAM DESCRIPTION: CT - Head Brain Wo Cont - 01/02/2023 8:45 am CLINICAL HISTORY: HEADACHE COMPARISON: No comparisons TECHNIQUE: All CT scans are performed using dose optimization technique as appropriate and may inclu de automated exposure control or mA/KV adjustment according to patient size. FINDINGS: No intracranial hemorrhage, hydrocephalus or extra-axial fluid collection.No areas of brai n edema or evidence of midline shift. The paranasal sinuses and mastoids are clear. The calvarium is intact. IMPRESSION: No acute intracranial abnormality.
--- NOTE | 2023-01-02 08:54 | RAD REPORT ---
EXAM DESCRIPTION: RAD - Chest Pa And Lat (2 Views) - 01/02/2023 8:49 am CLINICAL HISTORY: DYSPNEA COMPARISON: Chest Single View dated 06/13/2018 FINDINGS: Lines: None. Lungs: No evidence of edema or pneumonia. Pleural: No significant pleural effusions or pneumothorax. Cardiac: The heart size is within normal limits. Mediastinum: Within normal limits. Bones: No acute fractures. Other: None IMPRESSION: No acute cardiopulmonary disease.
[2023-01-02] MEDS ORDERED: DILTIAZEM HCL 60 MG TAB PO SCH (09:00)
[2023-01-02 09:03] LABS: Albumin 3.4 g/dL (3.4-5.0); Bilirubin Total 0.3 mg/dL (0.2-1.0); Potassium 4.2 mmol/L (3.5-5.1); Protein, Total 6.9 g/dL (6.4-8.2); Troponin High Sensitivity 4.3 pg/mL (<58.9)
[2023-01-02 09:11] LABS: Urine Blood Trace-intact (Negative); Urine Glucose Negative (Negative); Urine Protein Negative (Negative); Urine pH 5.5 (5.0-7.0)
[2023-01-02 09:13] LABS: SARS-COV-2 RT PCR NEGATIVE (NEGATIVE)
--- NOTE | 2023-01-02 09:47 | EDPHYS ---
Physician Documentation [facility] Name: Yu Oakes Age: 57 yrs Sex: Female : 1965 Arrival Date: 01/02/2023 Time: 07:32 Bed 20 Private MD: ED Physician Eitan Beverly HPI: 01/02 08:04 This 57 yrs old Female presents to ER via Ambulatory with complaints of stacey Headache, Cough, Sore Throat, Back Pain. 08:04 The patient complains of pain to the top of head, forehead, right ear and left ear. stacey Historical: - Allergies: 07:35 Levaquin; aa5 - PMHx: 07:35 None; aa5 - PSHx: 07:35 Cholecystectomy; aa5 - Immunization history:: Adult Immunizations unknown. - Social history:: Smoking status: Patient reports the use of cigarette tobacco products, 6-8 cigarettes a day . ROS: 08:05 Constitutional: Negative for fever, chills, and weight loss, Eyes: Negative for injury, stacey pain, redness, and discharge, ENT: Negative for injury, pain, and discharge, Neck: Negative for injury, pain, and swelling, Cardiovascular: Negative for chest pain, palpitations, and edema, Abdomen/GI: Negative for abdominal pain, nausea, vomiting, diarrhea, and constipation, : Negative for injury, bleeding, discharge, and swelling, MS/Extremity: Negative for injury and deformity, Skin: Negative for injury, rash, and discoloration, Neuro: Negative for headache, weakness, numbness, tingling, and seizure, Psych: Negative for depression, anxiety, suicide ideation, homicidal ideation, and hallucinations, Allergy/Immunology: Negative for hives, rash, and allergies, Endocrine: Negative for neck swelling, polydipsia, polyuria, polyphagia, and marked weight changes, Hematologic/Lymphatic: Negative for swollen nodes, abnormal bleeding, and unusual bruising. 08:05 ENT: Positive for sinus congestion, sinus pain. 08:05 Respiratory: Positive for cough, shortness of breath, at rest. 08:05 Back: Positive for decreased range of motion, pain at rest. 08:05 Neuro: Positive for headache. Exam: 08:07 Constitutional: This is a well developed, well nourished patient who is awake, alert, stacey and in no acute distress. Head/Face: Normocephalic, atraumatic. Eyes: Pupils equal round and reactive to light, extra-ocular motions intact. Lids and lashes normal. Conjunctiva and sclera are non-icteric and not injected. Cornea within normal limits. Periorbital areas with no swelling, redness, or edema. Neck: Trachea midline, no thyromegaly or masses palpated, and no cervical lymphadenopathy. Supple, full range of motion without nuchal rigidity, or vertebral point tenderness. No Meningismus. Chest/axilla: Normal chest wall appearance and motion. Nontender with no deformity. No lesions are appreciated. Cardiovascular: Regular rate and rhythm with a normal S1 and S2. No gallops, murmurs, or rubs. Normal PMI, no JVD. No pulse deficits. Abdomen/GI: Soft, non-tender, with normal bowel sounds. No distension or tympany. No guarding or rebound. No evidence of tenderness throughout. Female : Normal external genitalia. Skin: Warm, dry with normal turgor. Normal color with no rashes, no lesions, and no evidence of cellulitis. MS/ Extremity: Pulses equal, no cyanosis. Neurovascular intact. Full, normal range of motion. Neuro: Awake and alert, GCS 15, oriented to person, place, time, and situation. Cranial nerves II-XII grossly intact. Motor strength 5/5 in all extremities. Sensory grossly intact. Cerebellar exam normal. Normal gait. Psych: Awake, alert, with orientation to person, place and time. Behavior, mood, and affect are within normal limits. 08:07 ENT: TM's: dullness, erythema, that is mild, bilaterally, Posterior pharynx: no acute changes, Airway: normal, no evidence of obstruction, Tonsils: with erythema, Uvula: normal, midline, swelling, is not appreciated, erythema, that is mild, exudate, is not appreciated, peritonsillar mass, is not appreciated. 08:22 ECG was reviewed by the Attending Physician. [facility] Vital Signs: 07:34 BP 131 / 78; Pulse 52; Resp 16 S; Temp 97.0(TE); Pulse Ox 100% on R/A; Weight 67.13 kg aa5 (R); Height 5 ft. 9 in. (175.26 cm) (R); 08:20 BP 112 / 75 RA; Pulse 51; hb 08:23 BP 114 / 96 LA; Pulse 53; hb 09:47 BP 121 / 75; Pulse 38; Resp 15; Pulse Ox 100% on R/A; hb 09:48 BP 126 / 77 Supine; Pulse 39; hb 09:53 BP 119 / 87 Sitting; Pulse 43; hb 09:59 BP 128 / 66 Standing; Pulse 44; hb 07:34 Body Mass Index 21.86 (67.13 kg, 175.26 cm) aa5 Srinivas Coma Score: 08:09 Eye Response: spontaneous(4). Verbal Response: oriented(5). Motor Response: obeys [facility] commands(6). Total: 15. MDM: 07:37 Patient medically screened. [facility] 08:09 Data reviewed: vital signs, nurses notes, lab test result(s), EKG, radiologic studies, [facility] plain films. Consideration of Admission/Observation Escalation of care including admission/observation considered. I considered the following discharge prescriptions or medication management in the emergency department Medications were administered in the Emergency Department. See MAR. Test considered but Not performed: CT: ct pe study. Care significantly affected by the following chronic conditions: none, tobacco abuse. 01/02 08:03 Order name: CBC with Diff; Complete Time: 09:11 [facility] 01/02 08:03 Order name: Comprehensive Metabolic Panel; Complete Time: 09:11 [facility] 01/02 08:03 Order name: Lipase; Complete Time: 09:11 [facility] 01/02 08:03 Order name: COVID-19/FLU A+B; Complete Time: 09:45 [facility] 01/02 08:03 Order name: D-Dimer; Complete Time: 09:11 [facility] 01/02 08:03 Order name: Troponin High Sensitivity; Complete Time: 09:11 [facility] 01/02 08:03 Order name: CT Head Brain wo Cont; Complete Time: 09:11 [facility] 01/02 08:03 Order name: Chest Pa And Lat (2 Views) XRAY [facility] 01/02 08:07 Order name: Strep; Complete Time: 09:11 [facility] 01/02 08:54 Order name: RAD; Complete Time: 09:11 [facility] 01/02 09:02 Order name: Throat Culture [facility] 01/02 09:11 Order name: Urine Dipstick-Ancillary; Complete Time: 09:12 [facility] 01/02 08:03 Order name: Urine Dipstick-Ancillary (obtain specimen); Complete Time: 09:25 [facility] 01/02 08:03 Order name: EKG; Complete Time: 08:05 [facility] 01/02 08:03 Order name: EKG - Nurse/Tech; Complete Time: 08:40 [facility] 01/02 08:03 Order name: Bilateral blood pressure; Complete Time: 08:39 [facility] 01/02 09:50 Order name: Orthostatic Blood Pressure; Complete Time: 09:59 stacey EC:22 Rate is 46 beats/min. Rhythm is regular. QRS [place] is Normal. MS interval is normal. QRS stacey interval is normal. QT interval is normal. No Q waves. T waves are Normal. No ST changes noted. Clinical impression: Sinus bradycardia and No evidence of ischemia. Interpreted by me. Reviewed by me. Administered Medications: 08:20 Drug: NS 0.9% 1000 ml Route: IV; Rate: 1 bolus; Site: right antecubital; hb 08:39 Drug: Ketorolac 30 mg Route: IVP; Site: right antecubital; hb 10:00 Follow up: Response: No adverse reaction hb 08:39 Drug: Decadron - Dexamethasone 10 mg Route: IVP; Site: right antecubital; hb 10:00 Follow up: Response: No adverse reaction hb 08:39 Drug: fentaNYL (PF) 25 mcg Route: IVP; Site: right antecubital; hb 10:00 Follow up: Response: No adverse reaction hb 08:39 Drug: Zofran (Ondansetron) 4 mg Route: IVP; Site: right antecubital; hb 09:59 Follow up: Response: No adverse reaction hb 08:39 Drug: Rocephin (cefTRIAXone) 1 grams Route: IV; Rate: per protocol; Site: right hb antecubital; 09:59 Follow up: Response: No adverse reaction hb 09:40 Drug: fentaNYL (PF) 25 mcg Route: IVP; Site: right antecubital; hb Disposition Summary: 01/02/23 09:47 Discharge Ordered Location: Home stacey Problem: new stacey Symptoms: have improved stacey Condition: Stable stacey Diagnosis - Acute upper respiratory infection, unspecified stacey - Tobacco abuse counseling stacey - Tobacco use stacey - Headache stacey - Bradycardia, unspecified stacey Followup: stacey - With: Private Physician - When: 2 - 3 days - Reason: Recheck today's complaints, Continuance of care, Re-evaluation by your physician Followup: stacey - With: Jovanny Pinto MD - When: 2 - 3 days - Reason: Recheck today's complaints, Re-evaluation by your physician Discharge Instructions: - Discharge Summary Sheet stacey - Bradycardia, Adult stacey - General Headache Without Cause stacey - Steps to Quit Smoking stacey - Health Risks of Smoking stacey - Upper Respiratory Infection, Adult stacey - Cool Mist Vaporizer stacey - Aspirin and Your Heart stacey - Cough, Adult [facility] Forms: - Medication Reconciliation Form [facility] - Thank You Letter [facility] - Antibiotic Education [facility] - Prescription Opioid Use [facility] Prescriptions: - Patricia-D 12 Hour 60-120 mg Oral Tablet Sustained Release 12 hr - take 1 tablet by ORAL route every 12 hours As needed; 30 tablet; Refills: 0, [facility] Product Selection Permitted - Pepcid 20 mg Oral Tablet - take 1 tablet by ORAL route every 12 hours for 21 days; 42 tablet; Refills: 0, [facility] Product Selection Permitted - Zithromax 500 mg Oral Tablet - take 1 tablet by ORAL route once daily for 5 days; 5 tablet; Refills: 0, [facility] Product Selection Permitted - dexamethasone 2 mg Oral tablet - take 1 tablet by ORAL route 2 times per day; 10 tablet; Refills: 0, Product [facility] Selection Permitted - Guaifenesin AC 10-100 mg/5 mL Oral Liquid - take 7.5 milliliter by ORAL route every 6 hours As needed; 150 milliliter; [facility] Refills: 0, Product Selection Permitted Signatures: Dispatcher [employer] Eitan Walker MD MD cha Calderon, Audri, RN RN aa5 Ludivina Perea RN RN
--- NOTE | 2023-01-02 09:47 | ER ---
Nurse's Notes [facility] Name: Yu Oakes Age: 57 yrs Sex: Female : 1965 Arrival Date: 01/02/2023 Time: 07:32 Bed 20 Private MD: Diagnosis: Acute upper respiratory infection, unspecified;Tobacco abuse counseling;Tobacco use;Headache;Bradycardia, unspecified Presentation: 01/02 07:34 Chief complaint: Patient states: "Wednesday I woke up sick and I am getting worse". Pt aa5 reports headache, sore throat, back pain with cough, left ear pain, cough, congestion. 07:34 Acuity: JEFFERSON 4 aa5 07:34 Method Of Arrival: Ambulatory aa5 07:34 Coronavirus screen: congestion, cough unrelated to allergies. Ebola Screen: Patient aa5 denies travel to an Ebola-affected area in the 21 days before illness onset. Initial Sepsis Screen: Does the patient meet any 2 criteria? No. Patient's initial sepsis screen is negative. Does the patient have a suspected source of infection? No. Patient's initial sepsis screen is negative. Risk Assessment: Do you want to hurt yourself or someone else? Patient reports no desire to harm self or others. Onset of symptoms was December 2022. Historical: - Allergies: 07:35 Levaquin; aa5 - PMHx: 07:35 None; aa5 - PSHx: 07:35 Cholecystectomy; aa5 - Immunization history:: Adult Immunizations unknown. - Social history:: Smoking status: Patient reports the use of cigarette tobacco products, 6-8 cigarettes a day . Screenin:42 [facility] ED Fall Risk Assessment (Adult) Score/Fall Risk Level 0 - 2 = Low Risk hb Oriented to surroundings, Maintained a safe environment, Educated pt \\T\\ family on fall prevention, incl call for assistance when getting out of bed. Abuse screen: Denies threats or abuse. Denies injuries from another. Nutritional screening: No deficits noted. Tuberculosis screening: No symptoms or risk factors identified. Assessment: 08:30 General: Appears in no apparent distress. Behavior is calm, cooperative. Pain: Pain hb currently is 7 out of 10 on a pain scale. Neuro: Level of Consciousness is awake, alert, obeys commands, Oriented to person, place, time, situation. Cardiovascular: Patient's skin is warm and dry. Rhythm is sinus bradycardia. Respiratory: Reports shortness of breath cough that is Respiratory effort is even, unlabored, Respiratory pattern is regular, symmetrical. GI: Reports nausea. : No signs and/or symptoms were reported regarding the genitourinary system. EENT: Reports sinus congestion, sinus drainage. Derm: Skin is pink, warm \\T\\ dry. Musculoskeletal: Reports pain all over. 08:41 Reassessment: PT TO CT. hb 09:47 Reassessment: Patient appears in no apparent distress at this time. Patient and/or hb family updated on plan of care and expected duration. Pain level reassessed. Patient is alert, oriented x 3, equal unlabored respirations, skin warm/dry/pink. Vital Signs: 07:34 BP 131 / 78; Pulse 52; Resp 16 S; Temp 97.0(TE); Pulse Ox 100% on R/A; Weight 67.13 kg aa5 (R); Height 5 ft. 9 in. (175.26 cm) (R); 08:20 BP 112 / 75 RA; Pulse 51; hb 08:23 BP 114 / 96 LA; Pulse 53; hb 09:47 BP 121 / 75; Pulse 38; Resp 15; Pulse Ox 100% on R/A; hb 09:48 BP 126 / 77 Supine; Pulse 39; hb 09:53 BP 119 / 87 Sitting; Pulse 43; hb 09:59 BP 128 / 66 Standing; Pulse 44; hb 07:34 Body Mass Index 21.86 (67.13 kg, 175.26 cm) aa5 Srinivas Coma Score: 08:09 Eye Response: spontaneous(4). Verbal Response: oriented(5). Motor Response: obeys stacey commands(6). Total: 15. ED Course: 07:32 Patient arrived in ED. mr 07:34 Arm band placed on. aa5 07:37 Eitan Beverly MD is Attending Physician. stacey 07:40 Triage completed. aa5 07:42 Ludivina Perea, TAMARA is Primary Nurse. hb 08:26 Inserted saline lock: 20 gauge in right antecubital area, using aseptic technique. hb Blood collected. 08:42 Patient has correct armband on for positive identification. hb 08:47 CT Head Brain wo Cont In Process Unspecified. EDMS 09:50 Jovanny Pinto MD is Referral Physician. stacey 09:58 Chest Pa And Lat (2 Views) XRAY Sent. [email or web address] 10:17 No provider procedures requiring assistance completed. IV discontinued, intact, hb bleeding controlled, No redness/swelling at site. Administered Medications: 08:20 Drug: NS 0.9% 1000 ml Route: IV; Rate: 1 bolus; Site: right antecubital; hb 08:39 Drug: Ketorolac 30 mg Route: IVP; Site: right antecubital; hb 10:00 Follow up: Response: No adverse reaction hb 08:39 Drug: Decadron - Dexamethasone 10 mg Route: IVP; Site: right antecubital; hb 10:00 Follow up: Response: No adverse reaction hb 08:39 Drug: fentaNYL (PF) 25 mcg Route: IVP; Site: right antecubital; hb 10:00 Follow up: Response: No adverse reaction hb 08:39 Drug: Zofran (Ondansetron) 4 mg Route: IVP; Site: right antecubital; hb 09:59 Follow up: Response: No adverse reaction hb 08:39 Drug: Rocephin (cefTRIAXone) 1 grams Route: IV; Rate: per protocol; Site: right hb antecubital; 09:59 Follow up: Response: No adverse reaction hb 09:40 Drug: fentaNYL (PF) 25 mcg Route: IVP; Site: right antecubital; hb Medication: 08:42 VIS not applicable for this client. hb Outcome: 09:47 Discharge ordered by . [facility] 10:17 Discharged to home ambulatory. hb 10:17 Condition: stable 10:17 Discharge instructions given to patient, Instructed on discharge instructions, follow up and referral plans. medication usage, Demonstrated understanding of instructions, follow-up care, medications, Prescriptions given X 5 10:24 Patient left the ED. hb Signatures: Dispatcher [employer] EDMS Eitan Beverly MD MD cha Rivera, Mary mr Lara Yuan, TAMARA RN aa5 Ludivina Perea RN RN Bridgette Sifuentes [email or web address] Corrections: (The following items were deleted from the chart) 09:25 08:38 Cardizem (diltiazem) 30 mg PO hb hb
[2023-01-02 10:39] VITALS: TEMP 97; O2SAT 100
[2023-01-02 10:54] VITALS: BP 128/66
--- NOTE | 2023-01-04 18:46 | EKG ---
Test Date: 2023-01-02 Test Time: 08:13:36 Polisher Sand: JOCELYN MEASUREMENT RESULTS: Intervals: Rate: 46 WA: 158 QRSD: 80 QT: 446 QTc: 390 [place]: P: 39 WA: 158 QRS: 61 T: 52 INTERPRETIVE STATEMENTS: Marked sinus bradycardia Abnormal ECG Compared to ECG 01/19/2022 14:44:53 No significant changes Electronically Signed On 01-04-23 18:42:12 IT SUPPORT TECHNICIAN by Jovanny Pinto
== END 2023-01-02 10:24 | disposition home or self-care (01) ==
LOC: ER 07:28
DX: J06.9 Acute upper respiratory infection, unspecified (principal); Z72.0 Tobacco use; Z71.6 Tobacco abuse counseling; Z20.822 Contact with and (suspected) exposure to COVID-19
CPT/HCPCS: 93005; 87070; 85025; 36415; 85379; 87081; 81003; 84484; 83690; 80053; 0240U; 70450; 71046; 96375; 96374; 99284; J3010; J1100; J7030; J2405

== ENCOUNTER 2023-04-11 08:22 | Emergency (ER) | payer OTHER ==
--- OUTSIDE RECORDS SUMMARY | 2023-04-11 08:31 | XMS REPORT | Continuity of Care Document ---
:1965 Author Organization [facility] t Address [address] [place] [address]. [address] [place] [address] Care Team Providers Name Role Phone BRANDON Attending Clinician Unavailable Dmitri Mckenzie Attending Clinician [phone] Violette Phillips Attending Clinician [phone] ANATOLIY Attending Clinician Unavailable BRANDON Admitting Clinician Unavailable ANATOLIY Admitting Clinician Unavailable Payers Payer Name Policy Type Policy Number Effective Date Expiration Date S ource Problems This patient has no known problems. Allergies, Adverse Reactions, Alerts Allergy Allergy Status Severity Reaction(s) Onset Inactive Treating Comm ents Source Name Type Date Date Clinician Levaquin Allergy Active Severe Other [place] [facility] Social History Smoking Status Start Date Stop Date Source Current Every Day Smoker [place] [facility] Heavy Tobacco Smoker [place] [facility] Medications Ordered Filled Start Stop Current [...] route. cefdinir cefdinir No 1capsul Q12H cefdinir [place] 300 mg 300 mg e(s) 300 mg [facility] capsule capsule capsule ty Take 1 Take 1 Take 1 Hospita capsule capsule capsule l every 12 every 12 every 12 Cli nics hours by hours by hours by oral route oral route oral route for 10 for 10 for 10 days. days. days. prednisone prednisone No 1 BID prednisone [place] 20 mg 20 mg 20 mg [facility] tablet Take tablet Take tablet ty 1 tablet 1 tablet Take 1 Hospi ta twice a day twice a day tablet l by oral by oral twice a Clinic s route for 5 route for 5 day by days. days. oral route for 5 days. amoxicillin amoxicillin No 1 Q12H amoxicilli [place] 875 mg 875 mg n 875 mg [facility] tablet Take tablet Take tablet ty 1 tablet 1 tablet Take 1 Hospi ta every 12 every 12 tablet l hours by hours by every 12 Cli nics oral route oral route hours by for 10 for 10 oral route days. days. for 10 days. prednisone prednisone No prednisone [place] 20 mg 20 mg 20 mg [facility] [...] Source BP Diastolic 2022-04-08 00:00:00 64 mm[Hg] [place] [facility] s Height 2022-04-08 00:00:00 69 [in_i] [facility] s BMI (Body Mass 2022-04-08 00:00:00 21.8 kg/m2 [facility] s BP Systolic 2022-04-08 00:00:00 101 mm[Hg] [facility] s Body Weight 2022-04-08 00:00:00 2358.4 [oz_av] [facility] s BP Diastolic 2021-08-28 00:00:00 76 mm[Hg] [facility] s Height 2021-08-28 00:00:00 69 [in_i] [facility] s BMI (Body Mass 2021-08-28 00:00:00 22.4 kg/m2 [facility] s BP Systolic 2021-08-28 00:00:00 115 mm[Hg] [facility] s Body Weight 2021-08-28 00:00:00 2432 [oz_av] [facility] s BP Diastolic 2020-01-29 00:00:00 74 mm[Hg] [facility] [facility] Height 2020-01-29 00:00:00 69 [in_i] [facility] BMI (Body Mass 2020-01-29 00:00:00 23.2 kg/m2 [place] [employer] [facility] BP Systolic 2020-01-29 00:00:00 110 mm[Hg] [place] [facility] Body Weight 2020-01-29 00:00:00 157.2 [lb_av] [place] Procedures Procedure Date / Time Performed Performing Clinician Sourc e Tubal Ligation [facility] Cholecystectomy [facility] Plan of Care Planned Activity Planned Date Details Comments Source Diagnostic Test Pending 2020-01-30 CBC w/ auto diff [place] [facility] 00:00:00 [code = CBC w/ Health Outrea ch auto diff] Program Diagnostic Test Pending 2020-01-30 CMP, serum or [place] [facility] 00:00:00 plasma [code = Health Outrea ch CMP, serum or Program plasma] Diagnostic Test Pending 2020-01-30 lipid panel, [place] [facility] 00:00:00 serum [code = Health Outreac h lipid panel, Program serum] Diagnostic Test Pending 2020-01-30 HbA1c (hemoglobin [place] [facility] 00:00:00 A1c), blood [code Health Out reach = HbA1c Program (hemoglobin A1c), blood] Diagnostic Test Pending 2020-01-30 TSH, [place] [facility] 00:00:00 ultra-sensitive, Health Outr each serum [code = Program TSH, ultra-sensitive, serum] Instructions [place] [facility] s Encounters Start End Encounter Admission Attending Care Care Encounter Source Date/Time Date/Time Type Type Clinicians Facility Department ID 2022-04-08 2022-04-08 Outpatient ALANS [facility] [id number] [place] 02:27:00 02:27:00 0601 [facility] 2022-04-08 2022-04-08 Outpatient Jonah [facility] [id number] 00:00:00 00:00:00 Dmitri [id number] [place] [id number] 2022-04-08 2022-04-08 Dmitri [facility] [place] 00:[facility]:00 [facility] DO: [address] [place] [address], [facility] [address] [place] [id number] , Ph. 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 2021-08-282021-08-28 Outpatient Alan [facility] [id number] 00:00:00 00:00:00 Violette [id number] 2021-08-27 2021-08-27 Outpatient BRANDON [facility] [id number] [place] 11:31:00 11:31:00 1020 [facility] 2020-02-05 2020-02-05 Outpatient MYRA_[facility] DECK[facility] [id number] [place] 12:23:00 12:23:00 _ANN [facility] 2020-01-29 2020-01-29 Outpatient MYRA_TEMITOPE DECKER 820 [place] 05:22:00 05:22:00 _ANN [id number] [facility] 2020-01-29 2020-01-29 Temitope DECKER [place] - [id number] [place] 00:00:00 00:00:00 Shannon Gray OFFICE DIRECTOR: [address] [facility], [facility] [place] [id number] h , Ph. Program Results This patient has no known results.
[2023-04-11] MEDS ORDERED: KETOROLAC 30 MG/ML INJ ONE (08:46)
--- NOTE | 2023-04-11 09:57 | RAD REPORT ---
EXAM DESCRIPTION: RAD - Foot Right 3 View - 04/11/2023 9:00 am CLINICAL HISTORY: PAIN COMPARISON: No comparisons TECHNIQUE: Right foot, 3 views. FINDINGS: No fracture, dislocation or periosteal reaction. Mild midfoot degenerative changes. Small calcaneal spur. No air or foreign body in the soft tissues. IMPRESSION: No acute osseus abnormality of the right foot.
--- NOTE | 2023-04-11 10:11 | ER ---
Nurse's Notes [facility] Name: Yu Oakes Age: 57 yrs Sex: Female : 1965 Arrival Date: 04/11/2023 Time: 08:22 Bed 12 Private MD: Diagnosis: Pain in right foot Presentation: 04/11 08:33 Chief complaint: Patient states: Right foot pain in heel x 3 weeks, denies any recent vg1 injuries. Coronavirus screen: Vaccine status: Patient reports being unvaccinated. Client denies travel out of the [place] in the last 14 days. Ebola Screen: Patient negative for fever greater than or equal to 101.5 degrees Fahrenheit, and additional compatible Ebola Virus Disease symptoms Patient denies exposure to infectious person. Patient denies travel to an Ebola-affected area in the 21 days before illness onset. Initial Sepsis Screen: Does the patient meet any 2 criteria? No. Patient's initial sepsis screen is negative. Does the patient have a suspected source of infection? No. Patient's initial sepsis screen is negative. Risk Assessment: Do you want to hurt yourself or someone else? Patient reports no desire to harm self or others. 08:33 Method Of Arrival: Ambulatory vg1 08:33 Acuity: JEFFERSON 4 vg1 Triage Assessment: 08:35 General: Appears uncomfortable, Behavior is cooperative. Pain: Complains of pain in vg1 heel of right foot Pain currently is 8 out of 10 on a pain scale. Derm: Skin is pink, warm \T\ dry. Musculoskeletal: Reports pain in heel of right foot. Historical: - Allergies: 08:35 Levaquin; vg1 - PSHx: 08:35 Cholecystectomy; vg1 - Immunization history:: Client reports having NOT received the Covid vaccine. - Social history:: Smoking status: Patient reports the use of cigarette tobacco products, smokes one-half pack cigarettes per day. Screenin:35 [facility] ED Fall Risk Assessment (Adult) History of falling in the last 3 months, vg1 including since admission No falls in past 3 months (0 pts). Abuse screen: Denies threats or abuse. Denies injuries from another. Nutritional screening: No deficits noted. Tuberculosis screening: No symptoms or risk factors identified. Assessment: 08:33 Reassessment: SEE TRIAGE. vg1 09:38 Reassessment: Patient appears in no apparent distress at this time. Patient and/or vg1 family updated on plan of care and expected duration. Pain level reassessed. Patient is alert, oriented x 3, equal unlabored respirations, skin warm/dry/pink. pain decreased from 'sharp' to 'dull' pain. Vital Signs: 08:33 BP 138 / 84; Pulse 55; Resp 16; Temp 97.8(O); Pulse Ox 100% ; Weight 67.13 kg; Height 5 vg1 ft. 9 in. ; Pain 8/10; 10:14 BP 132 / 77; Pulse 57; Resp 16; Pulse Ox 99% on R/A; vg1 08:33 Body Mass Index 21.86 (67.13 kg, 175.26 cm) vg1 08:33 Pain Scale: Adult vg1 ED Course: 08:26 Patient arrived in ED. mr 08:27 [facility] 08:27 Acosta Krishnan MD is Attending Physician. jh7 08:35 Triage completed. vg1 08:35 Arm band placed on. vg1 08:35 Patient has correct armband on for positive identification. Bed in low position. Call vg1 light in reach. 08:35 No provider procedures requiring assistance completed. Patient did not have IV access vg1 during this emergency room visit. 08:36 Arti Real, RN is Primary Nurse. vg1 09:02 XRAY Foot RIGHT 3 View In Process Unspecified. EDMS Administered Medications: 08:49 Drug: Ketorolac IM 60 mg Route: IM; Site: right gluteus; vg1 09:38 Follow up: Response: No adverse reaction; Pain is decreased vg1 Medication: 08:36 VIS not applicable for this client. vg1 Outcome: 10:10 Discharge ordered by . 7 10:14 Discharged to home ambulatory. vg1 10:14 Condition: good 10:14 Discharge instructions given to patient, Instructed on discharge instructions, follow up and referral plans. medication usage, Demonstrated understanding of instructions, follow-up care, medications, Prescriptions given X 1. 10:15 Patient left the ED. vg1 Signatures: Dispatcher [employer] EDNE Temitope Driver Arti Real RN RN vg1 Yu Cardoso FNP FNP [facility]
--- NOTE | 2023-04-11 10:11 | EDPHYS ---
Physician Documentation [facility] Name: Yu Oakes Age: 57 yrs Sex: Female : 1965 Arrival Date: 04/11/2023 Time: 08:22 Bed 12 Private MD: ED Physician Acosta Krishnan HPI: 04/11 08:35 This 57 yrs old Female presents to ER via Ambulatory with complaints of Foot Pain. jh7 08:35 The patient presents with pain, that is acute. The complaints affect the heel of right jh7 foot. Context: resulted from an unknown cause, the patient can fully bear weight, the patient is able to ambulate, Problem is a result from a previous injury: No. Onset: The symptoms/episode began/occurred 3 week(s) ago. Associated signs and symptoms: Pertinent negatives calf tenderness, fever, nausea, numbness, rash, swelling, tingling, warmth. Treatment prior to arrival includes: no previous treatment. 57-year-old female reports right foot pain for the past 3 to 4 weeks. She denies any injury. She is concerned that there is "something inside her foot like a bone spur". She reports that her pain is at the bottom of her heel and that although the pain is worsened by weightbearing she can experience shooting pain while lying in bed. No medical problems no allergies.. Historical: - Allergies: 08:35 Levaquin; vg1 - PSHx: 08:35 Cholecystectomy; vg1 - Immunization history:: Client reports having NOT received the Covid vaccine. - Social history:: Smoking status: Patient reports the use of cigarette tobacco products, smokes one-half pack cigarettes per day. ROS: 08:35 Constitutional: Negative for fever, chills, and weight loss, Eyes: Negative for injury, jh7 pain, redness, and discharge, Neck: Negative for injury, pain, and swelling, Cardiovascular: Negative for chest pain, palpitations, and edema, Respiratory: Negative for shortness of breath, cough, wheezing, and pleuritic chest pain, Back: Negative for injury and pain, Skin: Negative for injury, rash, and discoloration, Neuro: Negative for headache, weakness, numbness, tingling, and seizure. 08:35 MS/extremity: Positive for pain, of the heel of right foot, Negative for injury or acute deformity, contusion, decreased range of motion, ecchymosis, erythema, laceration, rash, swelling, tenderness. 08:35 All other systems are negative. Exam: 08:35 Constitutional: This is a well developed, well nourished patient who is awake, alert, jh7 and in no acute distress. Head/Face: Normocephalic, atraumatic. Eyes: Pupils equal round and reactive to light, extra-ocular motions intact. Lids and lashes normal. Conjunctiva and sclera are non-icteric and not injected. Cornea within normal limits. Periorbital areas with no swelling, redness, or edema. Cardiovascular: Regular rate and rhythm with a normal S1 and S2. No gallops, murmurs, or rubs. Normal PMI, no JVD. No pulse deficits. Respiratory: Lungs have equal breath sounds bilaterally, clear to auscultation and percussion. No rales, rhonchi or wheezes noted. No increased work of breathing, no retractions or nasal flaring. Skin: Warm, dry with normal turgor. Normal color with no rashes, no lesions, and no evidence of cellulitis. Neuro: Awake and alert, GCS 15, oriented to person, place, time, and situation. Motor strength 5/5 in all extremities. Sensory grossly intact. Normal gait. 08:35 Musculoskeletal/extremity: ROM: intact in all extremities, Circulation is intact in all extremities. Pulses: are normal with no appreciated deficits, Sensation intact. Weight bearing: able to fully bear weight, without difficulty, Pain elicited by weightbearing.. Vital Signs: 08:33 BP 138 / 84; Pulse 55; Resp 16; Temp 97.8(O); Pulse Ox 100% ; Weight 67.13 kg; Height 5 vg1 ft. 9 in. ; Pain 8/10; 10:14 BP 132 / 77; Pulse 57; Resp 16; Pulse Ox 99% on R/A; vg1 08:33 Body Mass Index 21.86 (67.13 kg, 175.26 cm) vg1 08:33 Pain Scale: Adult vg1 MDM: 08:27 Patient medically screened. [facility] 10:10 Differential diagnosis: contusion, abrasion, tendonitis. Data reviewed: vital signs, [facility] nurses notes, radiologic studies, plain films. I considered the following discharge prescriptions or medication management in the emergency department Medications were administered in the Emergency Department. See MAR. Independent interpretation of the following test(s) in the Emergency Department X-Ray: My interpretation is no acute findings. Counseling: I had a detailed discussion with the patient and/or guardian regarding: the historical points, exam findings, and any diagnostic results supporting the discharge/admit diagnosis, to return to the emergency department if symptoms worsen or persist or if there are any questions or concerns that arise at home. 04/11 08:34 Order name: XRAY Foot RIGHT 3 View; Complete Time: 10:06 [facility] Administered Medications: 08:49 Drug: Ketorolac IM 60 mg Route: IM; Site: right gluteus; vg1 09:38 Follow up: Response: No adverse reaction; Pain is decreased vg1 Disposition Summary: 04/11/23 10:10 Discharge Ordered Location: Home [facility] Problem: new [facility] Symptoms: have improved jh Condition: Stable jh Diagnosis - Pain in right foot [facility] Followup: [facility] - With: Private Physician - When: 2 - 3 days - Reason: Recheck today's complaints Discharge Instructions: - Discharge Summary Sheet [facility] - Musculoskeletal Pain [facility] - Foot Pain [facility] Forms: - Medication Reconciliation Form 7 - Thank You Letter [facility] Prescriptions: - Naprosyn 500 mg Oral Tablet - take 1 tablet by ORAL route 2 times per day take with food; 30 tablet; Refills: [facility] 0, Product Selection Permitted Signatures: Dispatcher [employer] Arti Colin, RN RN vg1 Yu Cardoso, FARMWORKER FUR FARMWORKER FUR [facility]
[2023-04-11 10:19] VITALS: TEMP 97.8
[2023-04-11 10:21] VITALS: BP 132/77; O2SAT 99
== END 2023-04-11 10:15 | disposition home or self-care (01) ==
LOC: ER 08:22
DX: M79.671 Pain in right foot (principal); F17.210 Nicotine dependence, cigarettes, uncomplicated; Z88.1 Allergy status to other antibiotic agents
CPT/HCPCS: 96372; 99284

== ENCOUNTER 2023-05-19 14:04 | Emergency (ER) | payer OTHER ==
--- OUTSIDE RECORDS SUMMARY | 2023-05-19 14:08 | XMS REPORT | Continuity of Care Document ---
:1965 Author Organization [facility] t Address [address] [place] [address]. [address] [place] [address] Care Team Providers Name Role Phone BRANDON Attending Clinician Unavailable Dmitri Mckenzie Attending Clinician [phone] Violette Phillips Attending Clinician [phone] ANATOLIY Attending Clinician Unavailable BRANDON Admitting Clinician Unavailable ANATOLIY Admitting Clinician Unavailable Payers Payer Name Policy Type Policy Number Effective Date Expiration Date S ource Problems This patient has no known problems. Allergies, Adverse Reactions, Alerts Allergy Allergy Status Severity Reaction(s) Onset Inactive Treating Comm ents Source Name Type Date Date Clinician Levaquin Allergy Active Severe Other [facility] Social History Smoking Status Start Date Stop Date Source Current Every Day Smoker [facility] Heavy Tobacco Smoker [facility] Medications Ordered Filled Start Stop Current Ordering [...] route. cefdinir cefdinir No 1capsul Q12H cefdinir [facility] 300 mg 300 mg e(s) 300 mg [facility] capsule capsule capsule ty Take 1 Take 1 Take 1 Hospita capsule capsule capsule l every 12 every 12 every 12 Cli nics hours by hours by hours by oral route oral route oral route for 10 for 10 for 10 days. days. days. prednisone prednisone No 1 BID prednisone [facility] 20 mg 20 mg 20 mg [facility] tablet Take tablet Take tablet ty 1 tablet 1 tablet Take 1 Hospi ta twice a day twice a day tablet l by oral by oral twice a Clinic s route for 5 route for 5 day by days. days. oral route for 5 days. amoxicillin amoxicillin No 1 Q12H amoxicilli [facility] 875 mg 875 mg n 875 mg [facility] tablet Take tablet Take tablet ty 1 tablet 1 tablet Take 1 Hospi ta every 12 every 12 tablet l hours by hours by every 12 Cli nics oral route oral route hours by for 10 for 10 oral route days. days. for 10 days. prednisone prednisone No prednisone [facility] 20 mg 20 mg 20 mg [facility] [...] Source BP Diastolic 2022-04-08 00:00:00 64 mm[Hg] [facility] s Height 2022-04-08 00:00:00 69 [in_i] [facility] s BMI (Body Mass 2022-04-08 00:00:00 21.8 kg/m2 [facility]) [facility] s BP Systolic 2022-04-08 00:00:00 101 mm[Hg] [facility] s Body Weight 2022-04-08 00:00:00 2358.4 [oz_av] [facility] s BP Diastolic 2021-08-28 00:00:00 76 mm[Hg] [facility] s Height 2021-08-28 00:00:00 69 [in_i] [facility] s BMI (Body Mass 2021-08-28 00:00:00 22.4 kg/m2 [facility]) [facility] s BP Systolic 2021-08-28 00:00:00 115 mm[Hg] [facility] s Body Weight 2021-08-28 00:00:00 2432 [oz_av] [facility] s BP Diastolic 2020-01-29 00:00:00 74 mm[Hg] [facility] Height 2020-01-29 00:00:00 69 [in_i] [facility] BMI (Body Mass 2020-01-29 00:00:00 23.2 kg/m2 [facility]ter [facility] Index) [facility] BP Systolic 2020-01-29 00:00:00 110 mm[Hg] [facility] Body Weight 2020-01-29 00:00:00 157.2 [lb_av] [facility] Procedures Procedure Date / Time Performed Performing Clinician Sourc e Tubal [facility] Plan of Care Planned Activity Planned Date Details Comments Source Diagnostic Test Pending 2020-01-30 CBC w/ auto diff [facility] 00:00:00 [code = CBC w/ Health Outrea ch auto diff] Program Diagnostic Test Pending 2020-01-30 CMP, serum or [place] [facility] 00:00:00 plasma [code = Health Outrea ch CMP, serum or Program plasma] Diagnostic Test Pending 2020-01-30 lipid panel, [facility] 00:00:00 serum [code = Health Outreac h lipid panel, Program serum] Diagnostic Test Pending 2020-01-30 HbA1c (hemoglobin [facility] 00:00:00 A1c), blood [code Health Out reach = HbA1c Program (hemoglobin A1c), blood] Diagnostic Test Pending 2020-01-30 TSH, [facility] 00:00:00 ultra-sensitive, Health Outr each serum [code = Program TSH, ultra-sensitive, serum] Instructions [facility] Encounters Start End Encounter Admission Attending Care Care Encounter Source Date/Time Date/Time Type Type Clinicians Facility Department ID 2022-04-08 2022-04-08 Outpatient ALANS [facility] [id number] [facility] 02:27:00 02:27:00 0601 [facility] 2022-04-08 2022-04-08 Outpatient Jonah [facility] [id number] 00:00:00 00:00:00 Dmitri [id number] Todd [id number] 2022-04-08 2022-04-08 Dmitri [facility] [place] - [place] [facility] 00:00:00 00:00:00 [facility] DO: [address] [place] [address], [facility] [address] [place] [id number] , Ph. 2021-08-28 2021-08-28 Outpatient BRONSONS [facility] [id number] [facility] 11:14:00 11:14:00 1021 [facility] 2021-08-28 2021-08-28 Violette [facility] [place] - [place] [facility] 00:00:00 00:00:00 [facility] COW WASHER-SPOTLIGHT OPERATOR-C: [facility] ty [address] [place] [address] [address], [place] [address] , Ph. 2021-08-282021-08-28 Outpatient Alan [facility] [id number] 00:00:00 00:00:00 Violette [id number] 2021-08-27 2021-08-27 Outpatient BRANDON [facility] [id number] [facility] 11:31:00 11:31:00 1020 [facility] 2020-02-05 2020-02-05 Outpatient MYRA_TEMITOPE DECKER 820 [place] 12:23:00 12:23:00 _ANN [facility] 2020-01-29 2020-01-29 Outpatient MYRA_TEMITOPE DECKER 820 [place] 05:22:00 05:22:00 _ANN 0323 [facility] 2020-01-29 2020-01-29 Temitope DECKER [place] - [id number] [place] 00:00:00 00:00:00 Shannon Gray SPOTLIGHT OPERATOR: [address] [facility] [address], [facility] [address] h , Ph. Program Results This patient has no known results.
[2023-05-19 14:49] LABS: Absolute Lymphocytes (CBC) 2.6 K/uL (0.7-4.9); Hematocrit 41.8 % (36.0-45.0); Lymphocytes % 26.7 % (15.3-44.8); MPV 8.8 fL (7.6-11.3); RBC Red Blood Cell Count 4.49 M/uL (3.86-4.86)
[2023-05-19] MEDS ORDERED: FAMOTIDINE 20 MG TAB ONE (14:50)
[2023-05-19] MEDS ORDERED: METHYLPREDNISOLONE 125 MG INJ ONE (14:50)
[2023-05-19] MEDS ORDERED: NA CHLORIDE 0.9% 1,000 ML ONE (14:50)
[2023-05-19] MEDS ORDERED: CETIRIZINE HCL 5 MG TABLET ONE (14:55)
[2023-05-19 15:06] LABS: Albumin 3.9 g/dL (3.4-5.0); Bilirubin Total 0.4 mg/dL (0.2-1.0); Potassium 3.5 mEq/L (3.5-5.1); Protein, Total 7.6 g/dL (6.4-8.2)
--- NOTE | 2023-05-19 15:09 | ER ---
Nurse's Notes [facility] Name: Yu Oakes Age: 57 yrs Sex: Female : 1965 Arrival Date: 05/19/2023 Time: 14:04 Bed 5 Private MD: Diagnosis: Heat fatigue, transient;Unspecified contact dermatitis due to plants, except food Presentation: 05/19 14:14 Chief complaint: Patient states: Had to walk a lot in the heat today. + BRANDON, face red, ll1 hot body but has chills. States she got overheated 10 years ago and easily gets heat stroke now. Rash with itching to L arm, neck, and back. Believes its poison cora for 2 days. Coronavirus screen: Vaccine status: Patient reports being unvaccinated. Client denies travel out of the [place] in the last 14 days. At this time, the client does not indicate any symptoms associated with coronavirus-19. Ebola Screen: Patient denies travel to an Ebola-affected area in the 21 days before illness onset. Initial Sepsis Screen: Does the patient meet any 2 criteria? No. Patient's initial sepsis screen is negative. Does the patient have a suspected source of infection? No. Patient's initial sepsis screen is negative. Risk Assessment: Do you want to hurt yourself or someone else? Patient reports no desire to harm self or others. Onset of symptoms was May 18, 2023. 14:14 Method Of Arrival: Ambulatory ll1 14:14 Acuity: JEFFERSON 3 ll1 Triage Assessment: 14:16 General: Appears uncomfortable, Behavior is calm, cooperative, appropriate for age. ll1 Pain: Complains of pain in body Quality of pain is described as aching, crampy. Neuro: Reports weakness. Cardiovascular: Reports fatigue, nausea. GI: Reports nausea. Derm:. Musculoskeletal: Reports weakness in generalized. Historical: - Allergies: 14:16 Levaquin; ll1 - PMHx: 14:16 None; ll1 - PSHx: 14:16 Cholecystectomy; ectopic ; ll1 - Immunization history:: Client reports having NOT received the Covid vaccine. - Social history:: Smoking status: Patient reports the use of cigarette tobacco products, smokes one-half pack cigarettes per day. Assessment: 14:47 Pain: Complains of pain in head Pain does not radiate. Pain currently is 6 out of 10 on mb9 a pain scale. Quality of pain is described as throbbing, Pain began suddenly, Is continuous. 15:17 Reassessment: Patient appears in no apparent distress at this time. Patient and/or db family updated on plan of care and expected duration. Pain level reassessed. Patient is alert, oriented x 3, equal unlabored respirations, skin warm/dry/pink. General: Appears in no apparent distress. comfortable, Behavior is calm, cooperative. Neuro: Level of Consciousness is awake, alert, obeys commands, Oriented to person, place, time, situation. Vital Signs: 14:14 BP 177 / 90; Pulse 62; Resp 18; Temp 97.2; Pulse Ox 100% ; Weight 67.13 kg; Height 5 ll1 ft. 9 in. ; Pain 5/10; 14:47 BP 112 / 74; Pulse 74; Resp 14; Pulse Ox 100% on R/A; mb9 14:14 Body Mass Index 21.86 (67.13 kg, 175.26 cm) ll1 14:14 Pain Scale: Adult ll1 ED Course: 14:05 Patient arrived in ED. im 14:15 Violette Phillips FNP-C [facility] snw 14:15 Eitan Beverly MD is Attending Physician. snw 14:16 Triage completed. ll1 14:17 Arm band placed on. ll1 14:46 CBC with Diff Sent. mb9 14:46 CMP Sent. mb9 14:47 Inserted saline lock: 20 gauge in right antecubital area, using aseptic technique. mb9 15:23 No provider procedures requiring assistance completed. IV discontinued, intact, hb bleeding controlled, No redness/swelling at site. Administered Medications: 14:35 Drug: NS 0.9% IV 1000 ml Route: IV; Rate: 1 bolus; Site: right antecubital; mb9 14:35 Drug: MethylPrednisoLONE IVP 125 mg Route: IVP; Site: right antecubital; mb9 14:46 Drug: Famotidine PO 20 mg Route: PO; mb9 14:46 Drug: ZyrTEC - Cetirizine PO 10 mg Route: PO; mb9 Outcome: 15:08 Discharge ordered by . snw 15:22 Discharged to home ambulatory. hb 15:22 Condition: stable 15:22 Discharge instructions given to patient, Instructed on discharge instructions, follow up and referral plans. medication usage, Demonstrated understanding of instructions, follow-up care, medications, Prescriptions given X 3. 15:23 Patient left the ED. Signatures: Violette Phillips, DOCTOR OF RADIOLOGY-C DOCTOR OF RADIOLOGY-Csnw Ludivina Perea, RN RN Emmanuel Michelle RN RN ll1 Paulette Acosta RN RN db Temitope Klein RN RN mb9 Estrella Clark
--- NOTE | 2023-05-19 15:09 | EDPHYS ---
Physician Documentation [facility] Name: Yu Oakes Age: 57 yrs Sex: Female : 1965 Arrival Date: 05/19/2023 Time: 14:04 Bed 5 Private MD: ED Physician Eitan Beverly HPI: 05/19 14:26 This 57 yrs old Female presents to ER via Ambulatory with complaints of Heat Exposure, snw Skin Problem - both arms, neck. 14:26 Onset: The symptoms/episode began/occurred acutely. Associated signs and symptoms: snw Pertinent positives: itching, rash, lightheadedness. The patient has experienced a previous episode. It is unknown whether or not the patient has recently seen a physician. + smoker. Historical: - Allergies: 14:16 Levaquin; ll1 - PMHx: 14:16 None; ll1 - PSHx: 14:16 Cholecystectomy; ectopic ; ll1 - Immunization history:: Client reports having NOT received the Covid vaccine. - Social history:: Smoking status: Patient reports the use of cigarette tobacco products, smokes one-half pack cigarettes per day. ROS: 14:26 Eyes: Negative for injury, pain, redness, and discharge, ENT: Negative for injury, snw pain, and discharge, Neck: Negative for injury, pain, and swelling, Cardiovascular: Negative for chest pain, palpitations, and edema, Respiratory: Negative for shortness of breath, cough, wheezing, and pleuritic chest pain, Abdomen/GI: Negative for abdominal pain, nausea, vomiting, diarrhea, and constipation, Back: Negative for injury and pain, : Negative for injury, bleeding, discharge, and swelling, MS/Extremity: Negative for injury and deformity. 14:26 Constitutional: Positive for body aches, malaise. 14:26 Skin: Positive for rash. 14:26 Neuro: Positive for dizziness. Exam: 14:25 Constitutional: This is a well developed, well nourished patient who is awake, alert, snw and in no acute distress. Head/Face: Normocephalic, atraumatic. Eyes: Pupils equal round and reactive to light, extra-ocular motions intact. Lids and lashes normal. Conjunctiva and sclera are non-icteric and not injected. Cornea within normal limits. Periorbital areas with no swelling, redness, or edema. ENT: Nares patent. No nasal discharge, no septal abnormalities noted. Tympanic membranes are normal and external auditory canals are clear. Oropharynx with no redness, swelling, or masses, exudates, or evidence of obstruction, uvula midline. Mucous membranes moist. Neck: Trachea midline, no thyromegaly or masses palpated, and no cervical lymphadenopathy. Supple, full range of motion without nuchal rigidity, or vertebral point tenderness. No Meningismus. Chest/axilla: Normal chest wall appearance and motion. Nontender with no deformity. No lesions are appreciated. Cardiovascular: Regular rate and rhythm with a normal S1 and S2. No gallops, murmurs, or rubs. Normal PMI, no JVD. No pulse deficits. Respiratory: Lungs have equal breath sounds bilaterally, clear to auscultation and percussion. No rales, rhonchi or wheezes noted. No increased work of breathing, no retractions or nasal flaring. Abdomen/GI: Soft, non-tender, with normal bowel sounds. No distension or tympany. No guarding or rebound. No evidence of tenderness throughout. Back: No spinal tenderness. No costovertebral tenderness. Full range of motion. MS/ Extremity: Pulses equal, no cyanosis. Neurovascular intact. Full, normal range of motion. Neuro: Awake and alert, GCS 15, oriented to person, place, time, and situation. Cranial nerves II-XII grossly intact. Motor strength 5/5 in all extremities. Sensory grossly intact. Cerebellar exam normal. Normal gait. Psych: Awake, alert, with orientation to person, place and time. Behavior, mood, and affect are within normal limits. 14:25 Skin: Appearance: normal except for affected area, consistent with contact dermatitis. Vital Signs: 14:14 BP 177 / 90; Pulse 62; Resp 18; Temp 97.2; Pulse Ox 100% ; Weight 67.13 kg; Height 5 ll1 ft. 9 in. ; Pain 5/10; 14:47 BP 112 / 74; Pulse 74; Resp 14; Pulse Ox 100% on R/A; mb9 14:14 Body Mass Index 21.86 (67.13 kg, 175.26 cm) ll1 14:14 Pain Scale: Adult ll1 MDM: 14:21 Patient medically screened. snw 15:01 Differential diagnosis: heat exhaustion, stroke, strep, contact dermatitis, fungal snw rash. Data reviewed: vital signs, nurses notes, lab test result(s). I considered the following discharge prescriptions or medication management in the emergency department Medications were administered in the Emergency Department. See MAR. Counseling: I had a detailed discussion with the patient and/or guardian regarding: the historical points, exam findings, and any diagnostic results supporting the discharge/admit diagnosis, lab results, the need for outpatient follow up, to return to the emergency department if symptoms worsen or persist or if there are any questions or concerns that arise at home. Counseling: I had a detailed discussion with the patient and/or guardian regarding: smoking cessation. Response to treatment: the patient's symptoms have mildly improved after treatment, the patient's symptoms have markedly improved after treatment. Special discussion: Based on the history and exam findings, there is no indication for further emergent testing or inpatient evaluation. I discussed with the patient/guardian the need to see the primary care provider for further evaluation of the symptoms. 05/19 14:27 Order name: CBC with Diff; Complete Time: 14:52 snw 05/19 14:27 Order name: CMP; Complete Time: 15:08 snw 05/19 14:27 Order name: Labs collected and sent; Complete Time: 14:46 snw Administered Medications: 14:35 Drug: NS 0.9% IV 1000 ml Route: IV; Rate: 1 bolus; Site: right antecubital; mb9 14:35 Drug: MethylPrednisoLONE IVP 125 mg Route: IVP; Site: right antecubital; mb9 14:46 Drug: Famotidine PO 20 mg Route: PO; mb9 14:46 Drug: ZyrTEC - Cetirizine PO 10 mg Route: PO; mb9 Disposition Summary: 05/19/23 15:08 Discharge Ordered Location: Home snw Condition: Stable snw Diagnosis - Heat fatigue, transient snw - Unspecified contact dermatitis due to plants, except food snw Followup: snw - With: Emergency Department - When: As needed - Reason: Worsening of condition Followup: snw - With: Private Physician - When: 2 - 3 days - Reason: Recheck today's complaints, Continuance of care, Re-evaluation by your physician Discharge Instructions: - Discharge Summary Sheet snw - Contact Dermatitis snw - Steps to Quit Smoking snw - Health Risks of Smoking snw - Heat Exhaustion snw - Rehydration, Adult snw - Preventing Heat Exhaustion, Adult snw Forms: - Medication Reconciliation Form snw - Thank You Letter snw - Antibiotic Education snw - Prescription Opioid Use snw - Patient Portal Instructions.htm snw Prescriptions: - Zyrtec 10 mg Oral Tablet - take 1 tablet by ORAL route once daily As needed; 20 tablet; Refills: 0, snw Product Selection Permitted - Prednisone 20 mg Oral Tablet - take 2 tablets by ORAL route once daily for 5 days; 10 tablet; Refills: 0, snw Product Selection Permitted - Pepcid 20 mg Oral Tablet - take 1 tablet by ORAL route once daily; 20 tablet; Refills: 0, Product snw Selection Permitted Signatures: Dispatcher [employer] EDMS Violette Phillips FNP-C MERCHANDISE PRESENTATION MANAGER-Csnw Emmanuel Michelle, RN RN ll1 Temitope Klein RN RN mb9
[2023-05-19 16:57] VITALS: TEMP 97.2; O2SAT 100
[2023-05-19 17:21] VITALS: BP 112/74
== END 2023-05-19 15:23 | disposition home or self-care (01) ==
LOC: ER 14:04
DX: T67.6XXA Heat fatigue, transient, initial encounter (principal); L25.5 Unspecified contact dermatitis due to plants, except food; F17.210 Nicotine dependence, cigarettes, uncomplicated; Z88.1 Allergy status to other antibiotic agents
CPT/HCPCS: 85025; 36415; 80053; J2930; J7030

== ENCOUNTER 2023-07-24 16:36 | Emergency (ER) | payer OTHER ==
--- OUTSIDE RECORDS SUMMARY | 2023-07-24 16:38 | XMS REPORT | Continuity of Care Document ---
:1965 Author Organization [facility] t Address [address] [place] [address] Care Team Providers Name Role Phone BRANDON Attending Clinician Unavailable Dmitri Mckenzie Attending Clinician [phone] Violette Phillips Attending Clinician [phone] ANATOLIY Attending Clinician Unavailable BRANDON Admitting Clinician Unavailable ANATOLIY Admitting Clinician Unavailable Payers Payer Name Policy Type Policy Number Effective Date Expiration Date S ource Problems This patient has no known problems. Allergies, Adverse Reactions, Alerts Allergy Allergy Status Severity Reaction(s) Onset Inactive Treating Comm ents Source Name Type Date Date Clinician Levaquin Allergy Active Severe Other [place] [facility] Social History Smoking Status Start Date Stop Date Source Current Every Day Smoker [facility] Heavy Tobacco Smoker [place] Comm [facility] Medications Ordered Filled Start Stop Current [...] route. cefdinir cefdinir No 1capsul Q12H cefdinir [place] 300 mg 300 mg e(s) 300 mg Communi capsule capsule capsule ty Take 1 Take 1 Take 1 Hospita capsule capsule capsule l every 12 every 12 every 12 Cli nics hours by hours by hours by oral route oral route oral route for 10 for 10 for 10 days. days. days. prednisone prednisone No 1 BID prednisone [place] 20 mg 20 mg 20 mg Communi tablet Take tablet Take tablet ty 1 tablet 1 tablet Take 1 Hospi ta twice a day twice a day tablet l by oral by oral twice a Clinic s route for 5 route for 5 day by days. days. oral route for 5 days. amoxicillin amoxicillin No 1 Q12H amoxicilli [place] 875 mg 875 mg n 875 mg Communi tablet Take tablet Take tablet ty 1 tablet 1 tablet Take 1 Hospi ta every 12 every 12 tablet l hours by hours by every 12 Cli nics oral route oral route hours by for 10 for 10 oral route days. days. for 10 days. prednisone prednisone No prednisone [place] 20 mg 20 mg 20 mg Communi [...] Source BP Diastolic 2022-04-08 00:00:00 64 mm[Hg] Raymundo Crews [facility] s Height 2022-04-08 00:00:00 69 [in_i] [facility] s BMI (Body Mass 2022-04-08 00:00:00 21.8 kg/m2 [facility]) [facility] s BP Systolic 2022-04-08 00:00:00 101 mm[Hg] [facility] s Body Weight 2022-04-08 00:00:00 2358.4 [oz_av] [facility] s BP Diastolic 2021-08-28 00:00:00 76 mm[Hg] [facility] s Height 2021-08-28 00:00:00 69 [in_i] [facility] s BMI (Body Mass 2021-08-28 00:00:00 22.4 kg/m2 [facility]) [facility] s BP Systolic 2021-08-28 00:00:00 115 mm[Hg] [facility] s Body Weight 2021-08-28 00:00:00 2432 [oz_av] [facility] s BP Diastolic 2020-01-29 00:00:00 74 mm[Hg] [facility] Height 2020-01-29 00:00:00 69 [in_i] [facility] BMI (Body Mass 2020-01-29 00:00:00 23.2 kg/m2 [facility] [facility] BP Systolic 2020-01-29 00:00:00 110 mm[Hg] [facility] Body Weight 2020-01-29 00:00:00 157.2 [lb_av] [facility] Procedures Procedure Date / Time Performed Performing Clinician Sourc e Tubal Ligation [facility] Cholecystectomy [facility] Plan of Care Planned Activity Planned Date Details Comments Source Diagnostic Test Pending 2020-01-30 CBC w/ auto diff [facility] 00:00:00 [code = CBC w/ Health Outrea ch auto diff] Program Diagnostic Test Pending 2020-01-30 CMP, serum or [facility] 00:00:00 plasma [code = Health Outrea ch CMP, serum or Program plasma] Diagnostic Test Pending 2020-01-30 lipid panel, [facility] 00:00:00 serum [code = Health Outreac h lipid panel, Program serum] Diagnostic Test Pending 2020-01-30 HbA1c (hemoglobin [facility] 00:00:00 A1c), blood [code Health Out reach = HbA1c Program (hemoglobin A1c), blood] Diagnostic Test Pending 2020-01-30 TSH, [facility] 00:00:00 ultra-sensitive, Health Outr each serum [code = Program TSH, ultra-sensitive, serum] Instructions [place] [facility] Clinic s Encounters Start End Encounter Admission Attending Care Care Encounter Source Date/Time Date/Time Type Type Clinicians Facility Department ID 2022-04-08 2022-04-08 Outpatient ALANS [facility] [id number] [place] 02:27:00 02:27:00 0601 [facility] 2022-04-08 2022-04-08 Outpatient Jonah [facility] [id number] 00:00:00 00:00:00 Dmitri [id number] [place] [id number] 2022-04-08 2022-04-08 Dmitri [facility] [place] [facility] [address] [facility], [facility] [address] [place] [phone] , Ph. 2021-08-28 2021-08-28 Outpatient BRONSONS [facility] [id number] [place] 11:14:00 11:14:00 1021 [facility] 2021-08-28 2021-08-28 Violette [facility] [place] 00:00:00 [facility]:00[facility] TRACTOR TRAILER MECHANIC-HOME CARE ADMINISTRATOR-C: [facility] ty [address] [place] [address] [address], [place] [address] , Ph. 2021-08-28 2021-08-28 Outpatient Alan [facility] [id number] 00:00:00 00:00:00 Violette [id number] 2021-08-27 2021-08-27 Outpatient BRANDON [facility] [id number] [place] 11:31:00 11:31:00 1020 [facility] 2020-02-05 2020-02-05 Outpatient MYRA_TEMITOPE DECK[facility] 820 [place] 12:23:00 12:23:00 _ANN [facility] 2020-01-29 2020-01-29 Outpatient MYRA_TEMITOPE DECKER 820 [place] 05:22:00 05:22:00 _ANN 0323 [facility] 2020-01-29 2020-01-29 Temitope DECKER [place] - [id number] [place] 00:00:00 00:00:00 Shannon Gray HOME CARE ADMINISTRATOR: [address] [facility] KEVEN - BRIANNE sc [place], [facility], [place] [phone] h , Ph. Program Results This patient has no known results.
[2023-07-24] MEDS ORDERED: ONDANSETRON 4 MG (ODT) TAB ONE (16:59)
--- NOTE | 2023-07-24 17:28 | ER ---
Nurse's Notes [facility] Name: Yu Oakes Age: 58 yrs Sex: Female : 1965 Arrival Date: 07/24/2023 Time: 16:36 Bed 20 Private MD: Diagnosis: Viral infection, unspecified Presentation: 07/24 16:43 Chief complaint: Patient states: Headache, sore throat, chills, N/V since Wednesday. ld1 Coronavirus screen: Client presents with at least one sign or symptom that may indicate coronavirus-19. Ebola Screen: No symptoms or risks identified at this time. Initial Sepsis Screen: Does the patient meet any 2 criteria? No. Patient's initial sepsis screen is negative. Does the patient have a suspected source of infection? No. Patient's initial sepsis screen is negative. Risk Assessment: Do you want to hurt yourself or someone else? Patient reports no desire to harm self or others. Onset of symptoms was July 24, 2023. 16:43 Method Of Arrival: Ambulatory ld1 16:43 Acuity: JEFFERSON 4 ld1 Triage Assessment: 16:44 General: Appears in no apparent distress. comfortable, Behavior is calm, cooperative, ld1 appropriate for age. Pain: Denies pain. EENT: No signs and/or symptoms were reported regarding the EENT system. Neuro: Level of Consciousness is awake, alert, obeys commands, Oriented to person, place, time, situation. Cardiovascular: Capillary refill < 3 seconds Patient's skin is warm and dry. Respiratory: Airway is patent Respiratory effort is even, unlabored. GI: Abdomen is flat, non-distended. : No signs and/or symptoms were reported regarding the genitourinary system. Derm: No signs and/or symptoms reported regarding the dermatologic system. Musculoskeletal: No signs and/or symptoms reported regarding the musculoskeletal system. Historical: - Allergies: 16:44 Levaquin; ld1 - Home Meds: 16:44 None [Active]; ld1 - PMHx: 16:44 None; ld1 - PSHx: 16:44 Cholecystectomy; ectopic ; ld1 - Immunization history:: Adult Immunizations up to date. - Social history:: Smoking status: Patient reports the use of cigarette tobacco products, smokes one-half pack cigarettes per day. Screenin:17 [facility] ED Fall Risk Assessment (Adult) History of falling in the last 3 months, ld1 including since admission No falls in past 3 months (0 pts) Confusion or Disorientation No (0 pts) Intoxicated or Sedated No (0 pts) Impaired Gait No (0 pts) Mobility Assist Device Used No (0 pt) Altered Elimination No (0 pt) Score/Fall Risk Level 0 - 2 = Low Risk. Abuse screen: Denies threats or abuse. Nutritional screening: No deficits noted. Tuberculosis screening: No symptoms or risk factors identified. Assessment: 17:17 General: Reports chills for feeling ill for fatigue for 2-3 days, Headache, n/v, sore ld1 throat, chills since Wednesday. Pain: Complains of pain in throat and head Pain currently is 4 out of 10 on a pain scale. Quality of pain is described as aching, tender. Neuro: Level of Consciousness is awake, alert, obeys commands, Oriented to person, place, time, situation, Appropriate for age. Cardiovascular: Capillary refill < 3 seconds Patient's skin is warm and dry. Respiratory: Airway is patent Respiratory pattern is. Vital Signs: 16:43 BP 116 / 76; Pulse 63; Resp 18; Temp 98(O); Pulse Ox 100% on R/A; Weight 67.13 kg; ld1 Height 5 ft. 9 in. ; Pain 0/10; 17:42 BP 106 / 73; Pulse 51; Resp 18; Pulse Ox 97% on R/A; me1 16:43 Body Mass Index 21.86 (67.13 kg, 175.26 cm) ld1 16:43 Pain Scale: Adult ld1 ED Course: 16:38 Patient arrived in ED. im 16:39 Violette Phillips FNP-C is PHCP. snw 16:39 Eitan Beverly MD is Attending Physician. snw 16:44 Triage completed. ld1 16:44 Arm band placed on right wrist. ld1 16:51 COVID-19 SARS RT PCR Sent. ld1 16:51 Flu Sent. ld1 17:16 Funmi Pathak, RN is Primary Nurse. ld1 17:17 Patient has correct armband on for positive identification. Bed in low position. Call ld1 light in reach. Side rails up X 1. Provided Education on: POC. Verbalized understanding.. 17:17 No provider procedures requiring assistance completed. ld1 17:43 Patient did not have IV access during this emergency room visit. me1 Administered Medications: 16:51 Drug: Ondansetron PO 4 mg Route: PO; ld1 17:26 Follow up: Response: No adverse reaction; Nausea is decreased me1 Medication: 17:17 VIS not applicable for this client. ld1 Outcome: 17:27 Discharge ordered by . carlos 17:42 Discharged to home ambulatory. me1 17:42 Condition: stable 17:42 Discharge instructions given to patient, Instructed on discharge instructions, follow up and referral plans. medication usage, Demonstrated understanding of instructions, follow-up care, medications, Prescriptions given X 4. 17:43 Patient left the ED. me1 Signatures: Violette Phillips, LEGAL SERVICES MANAGER-C LEGAL SERVICES MANAGER-Travisw Funmi Pathak RN RN ld1 Estrella Clark Michelle RN RN me1
--- NOTE | 2023-07-24 17:28 | EDPHYS ---
Physician Documentation [facility] Name: Yu Oakes Age: 58 yrs Sex: Female : 1965 Arrival Date: 07/24/2023 Time: 16:36 Bed 20 Private MD: ED Physician Eitan Beverly HPI: 07/24 16:47 This 58 yrs old Female presents to ER via Ambulatory with complaints of COVID test. snw 16:47 Onset: The symptoms/episode began/occurred acutely. snw 16:54 Modifying factors: The patient symptoms are alleviated by nothing, the patient symptoms snw are aggravated by nothing. The patient has experienced similar episodes in the past, covid + x 3 episodes. The patient has not recently seen a physician. Works a [employer]. Historical: - Allergies: 16:44 Levaquin; ld1 - Home Meds: 16:44 None [Active]; ld1 - PMHx: 16:44 None; ld1 - PSHx: 16:44 Cholecystectomy; ectopic ; ld1 - Immunization history:: Adult Immunizations up to date. - Social history:: Smoking status: Patient reports the use of cigarette tobacco products, smokes one-half pack cigarettes per day. ROS: 16:46 Eyes: Negative for injury, pain, redness, and discharge. snw 16:46 Neck: Negative for injury, pain, and swelling, Cardiovascular: Negative for chest pain, palpitations, and edema, Respiratory: Negative for shortness of breath, cough, wheezing, and pleuritic chest pain. 16:46 Back: Negative for injury and pain, : Negative for injury, bleeding, discharge, and swelling, MS/Extremity: Negative for injury and deformity, Skin: Negative for injury, rash, and discoloration. 16:46 Psych: Negative for depression, anxiety, suicide ideation, homicidal ideation, and hallucinations. 16:46 Constitutional: Positive for body aches, fatigue, malaise, poor PO intake. 16:46 ENT: Positive for sore throat. 16:46 Abdomen/GI: Positive for nausea and vomiting. 16:46 Neuro: Positive for headache. Exam: 16:45 Head/Face: Normocephalic, atraumatic. Eyes: Pupils equal round and reactive to light, snw extra-ocular motions intact. Lids and lashes normal. Conjunctiva and sclera are non-icteric and not injected. Cornea within normal limits. Periorbital areas with no swelling, redness, or edema. 16:45 Neck: Trachea midline, no thyromegaly or masses palpated, and no cervical lymphadenopathy. Supple, full range of motion without nuchal rigidity, or vertebral point tenderness. No Meningismus. Chest/axilla: Normal chest wall appearance and motion. Nontender with no deformity. No lesions are appreciated. Cardiovascular: Regular rate and rhythm with a normal S1 and S2. No gallops, murmurs, or rubs. Normal PMI, no JVD. No pulse deficits. Respiratory: Lungs have equal breath sounds bilaterally, clear to auscultation and percussion. No rales, rhonchi or wheezes noted. No increased work of breathing, no retractions or nasal flaring. Abdomen/GI: Soft, non-tender, with normal bowel sounds. No distension or tympany. No guarding or rebound. No evidence of tenderness throughout. Back: No spinal tenderness. No costovertebral tenderness. Full range of motion. Skin: Warm, dry with normal turgor. Normal color with no rashes, no lesions, and no evidence of cellulitis. MS/ Extremity: Pulses equal, no cyanosis. Neurovascular intact. Full, normal range of motion. Neuro: Awake and alert, GCS 15, oriented to person, place, time, and situation. Cranial nerves II-XII grossly intact. Motor strength 5/5 in all extremities. Sensory grossly intact. Cerebellar exam normal. Normal gait. Psych: Awake, alert, with orientation to person, place and time. Behavior, mood, and affect are within normal limits. 16:45 Constitutional: The patient appears alert, awake, anxious. 16:45 ENT: TM's: are normal, Mouth: is normal, Posterior pharynx: erythema, that is mild, Voice: is normal. Vital Signs: 16:43 BP 116 / 76; Pulse 63; Resp 18; Temp 98(O); Pulse Ox 100% on R/A; Weight 67.13 kg; ld1 Height 5 ft. 9 in. ; Pain 0/10; 17:42 BP 106 / 73; Pulse 51; Resp 18; Pulse Ox 97% on R/A; me1 16:43 Body Mass Index 21.86 (67.13 kg, 175.26 cm) ld1 16:43 Pain Scale: Adult ld1 MDM: 16:40 Patient medically screened. snw 16:48 Differential diagnosis: viral Infection. Data reviewed: vital signs, nurses notes. I snw considered the following discharge prescriptions or medication management in the emergency department Medications were administered in the Emergency Department. See MAR. Counseling: I had a detailed discussion with the patient and/or guardian regarding the historical points, exam findings, and any diagnostic results supporting the discharge/admit diagnosis, lab results, to return to the emergency department if symptoms worsen or persist or if there are any questions or concerns that arise at home. Special discussion: Based on the history and exam findings, there is no indication for further emergent testing or inpatient evaluation. I discussed with the patient/guardian the need to see the primary care provider for further evaluation of the symptoms. 07/24 16:45 Order name: Flu; Complete Time: 17:19 snw 07/24 16:45 Order name: COVID-19 SARS RT PCR; Complete Time: 17:26 snw Administered Medications: 16:51 Drug: Ondansetron PO 4 mg Route: PO; ld1 17:26 Follow up: Response: No adverse reaction; Nausea is decreased me1 Disposition Summary: 07/24/23 17:27 Discharge Ordered Location: Home snw Condition: Stable snw Diagnosis - Viral infection, unspecified snw Followup: snw - With: Emergency Department - When: As needed - Reason: Worsening of condition Followup: snw - With: Private Physician - When: 2 - 3 days - Reason: Recheck today's complaints, Continuance of care, Re-evaluation by your physician Discharge Instructions: - Discharge Summary Sheet snw - Viral Respiratory Infection snw - Rehydration, Adult snw Forms: - Work release form snw - Medication Reconciliation Form snw - Thank You Letter snw - Antibiotic Education snw - Prescription Opioid Use snw - Patient Portal Instructions snw - Leadership Thank You Letter snw Prescriptions: - Zyrtec 10 mg Oral Tablet - take 1 tablet by ORAL route once daily As needed; 20 tablet; Refills: 0, snw Product Selection Permitted - orphenadrine citrate 100 mg Oral Tablet Sustained Release - take 1 tablet by ORAL route 2 times per day As needed; 20 tablet; Refills: 0, snw Product Selection Permitted - Pepcid 20 mg Oral Tablet - take 1 tablet by ORAL route once daily; 20 tablet; Refills: 0, Product snw Selection Permitted - promethazine 25 mg Oral Tablet - take 1 tablet by ORAL route every 6 hours As needed; 20 tablet; Refills: 0, snw Product Selection Permitted Signatures: Dispatcher [employer] Violette Benitez FNP-C FNP-Funmi Peña RN RN ld1 Kenzie Osei RN me1
[2023-07-24 17:49] VITALS: TEMP 98
[2023-07-24 17:50] VITALS: BP 106/73; O2SAT 97
== END 2023-07-24 17:43 | disposition home or self-care (01) ==
LOC: ER 16:36
DX: B34.9 Viral infection, unspecified (principal); F17.210 Nicotine dependence, cigarettes, uncomplicated; Z20.822 Contact with and (suspected) exposure to COVID-19; Z88.1 Allergy status to other antibiotic agents
CPT/HCPCS: 87635; 87804 ×2; 99283; Q0162

== ENCOUNTER 2023-10-11 17:37 | Emergency (ER) | payer OTHER ==
--- OUTSIDE RECORDS SUMMARY | 2023-10-11 17:41 | XMS REPORT | Continuity of Care Document ---
:1965 Author Organization [facility] t Address [address] [place] [address]. [address] [place] [address] Care Team Providers Name Role Phone BRANDON Attending Clinician Unavailable Dmitri Mckenzie Attending Clinician [phone] Violette Phillips Attending Clinician [phone] ANATOLIY Attending Clinician Unavailable BRANDON Admitting Clinician Unavailable ANATOLIY Admitting Clinician Unavailable Payers Payer Name Policy Type Policy Number Effective Date Expiration Date S ource Problems This patient has no known problems. Allergies, Adverse Reactions, Alerts Allergy Allergy Status Severity Reaction(s) Onset Inactive Treating Comm ents Source Name Type Date Date Clinician Levaquin Allergy Active Severe Other [place] Social History Smoking Status Start Date Stop Date Source Heavy Tobacco Smoker [facility] Current Every Day Smoker [place] [facility] Medications Ordered Filled Start [...] route. cefdinir cefdinir No 1capsul Q12H cefdinir [place] 300 mg 300 mg e(s) 300 mg [facility] capsule capsule capsule ty Take 1 Take 1 Take 1 Hospita capsule capsule capsule l every 12 every 12 every 12 Cli nics hours by hours by hours by oral route oral route oral route for 10 for 10 for 10 days. days. days. prednisone prednisone No 1 BID prednisone [place] 20 mg 20 mg 20 mg [facility] tablet Take tablet Take tablet ty 1 tablet 1 tablet Take 1 Hospi ta twice a day twice a day tablet l by oral by oral twice a Clinic s route for 5 route for 5 day by days. days. oral route for 5 days. amoxicillin amoxicillin No 1 Q12H amoxicilli [facility] 875 mg 875 mg n 875 mg [facility] tablet Take tablet Take tablet ty 1 tablet 1 tablet Take 1 Hospi ta every 12 every 12 tablet l hours by hours by every 12 Cli nics oral route oral route hours by for 10 for 10 oral route days. days. for 10 days. prednisone prednisone No prednisone [facility] 20 mg 20 mg 20 mg [facility] [...] until days days finished, total 5 days cefdinir cefdinir No 1capsul Q12H cefdinir [place] [...] Source BP Diastolic 2022-04-08 00:00:00 64 mm[Hg] [facility] Height 2022-04-08 00:00:00 69 [in_i] [facility] s BMI (Body Mass 2022-04-08 00:00:00 21.8 kg/m2 [facility] s BP Systolic 2022-04-08 00:00:00 101 mm[Hg] [facility] Body Weight 2022-04-08 00:00:00 2358.4 [oz_av] [facility] s BP Diastolic 2021-08-28 00:00:00 76 mm[Hg] [facility] Height 2021-08-28 00:00:00 69 [in_i] [facility] s BMI (Body Mass 2021-08-28 00:00:00 22.4 kg/m2 [facility]) [facility] s BP Systolic 2021-08-28 00:00:00 115 mm[Hg] [facility] s Body Weight 2021-08-28 00:00:00 2432 [oz_av] [facility] s BP Diastolic 2020-01-29 00:00:00 74 mm[Hg] [facility] Height 2020-01-29 00:00:00 69 [in_i] [facility] BMI (Body Mass 2020-01-29 00:00:00 23.2 kg/m2 [place] [facility] Index) [facility] BP Systolic 2020-01-29 00:00:00 110 mm[Hg] [place] [facility] Body Weight 2020-01-29 00:00:00 157.2 [lb_av] [place] [facility] Procedures Procedure Date / Time Performed Performing Clinician Sourc e Tubal Ligation [facility] Cholecystectomy [facility] Plan of Care Planned Activity Planned Date Details Comments Source Diagnostic Test Pending 2020-01-30 CBC w/ auto diff [place] [facility] 00:00:00 [code = CBC w/ Health Outrea ch auto diff] Program Diagnostic Test Pending 2020-01-30 CMP, serum or [place] [facility] 00:00:00 plasma [code = Health Outrea ch CMP, serum or Program plasma] Diagnostic Test Pending 2020-01-30 lipid panel, [facility] sa[facility] 00:00:00 serum [code = Health Outreac h lipid panel, Program serum] Diagnostic Test Pending 2020-01-30 HbA1c (hemoglobin [place] [facility] 00:00:00 A1c), blood [code Health Out reach = HbA1c Program (hemoglobin A1c), blood] Diagnostic Test Pending 2020-01-30 TSH, [place] [facility] 00:00:00 ultra-sensitive, Health Outr each serum [code = Program TSH, ultra-sensitive, serum] Instructions [facility] s Encounters Start End Encounter Admission Attending Care Care Encounter Source Date/Time Date/Time Type Type Clinicians Facility Department ID 2022-04-08 2022-04-08 Outpatient [facility] [id number] [place] 02:27:00 02:27:00 0601 [facility] 2022-04-08 2022-04-08 Outpatient Jon[facility] [id number] 00:00:00 00:00:00 Dmitri [id number] [place] [id number] 2022-04-08 2022-04-08 Dmitri [facility] [place] 00:00[facility]00 [facility] [address] [facility], [facility] [address] [place] [id number] , Ph. 2021-08-28 2021-08-28 Outpatient [facility] [id number] [place] 11:14:00 11:14:00 1021 [facility] 2021-08-28 2021-08-28 Violette [facility] [place] - [place] 00:00[facility]00 [facility]-TECHNICAL AGRONOMIST-C: [facility] ty [address] [place] [address] [address], [place] [address] , Ph. 2021-08-28 2021-08-28 Outpatient Alan [facility] [id number] 00:00:00 00:00:00 Violette [id number] 2021-08-27 2021-08-27 Outpatient BRANDON [facility] [id number] [place] 11:31:00 11:31:00 1020 [facility] 2020-02-05 2020-02-05 Outpatient MYRA_[facility] 820 [place] 12:23:00 12:23:00 _ANN [facility] 2020-01-29 2020-01-29 Outpatient MYRA_[facility] 820 [place] 05:22:00 05:22:00 _ANN 0323 [facility] 2020-01-29 2020-01-29 Temitope DEC[place] - [id number] [place] 00:00:00 00:00:00 Shannon Gray TECHNICAL AGRONOMIST: 17[facility] - [address] [place], [facility] [place] [facility] [phone] h , Ph. Program Results This patient has no known results.
[2023-10-11 18:50] LABS: SARS-CoV-2 Antigen Rapid Res Negative (Negative)
--- NOTE | 2023-10-11 19:24 | RAD REPORT ---
EXAM DESCRIPTION: RAD - Chest Pa And Lat (2 Views) - 10/11/2023 7:06 pm CLINICAL HISTORY: COUGH Chest pain. COMPARISON: Chest Pa And Lat (2 Views) dated 01/02/2023; Chest Single View dated 06/13/2018 FINDINGS: The lungs are clear. The heart is normal in size. No displaced fractures. Old left posteri or rib fracture. IMPRESSION: No acute or concerning finding suspected.
--- NOTE | 2023-10-11 21:03 | EDPHYS ---
Physician Documentation [facility] Name: Yu Oakes Age: 58 yrs Sex: Female : 1965 Arrival Date: 10/11/2023 Time: 17:37 Bed IW3 Private MD: ED Physician Elza Clements HPI: 10/11 18:35 This 58 yrs old Female presents to ER via Ambulatory with complaints of Possible COVID. cp 18:35 The patient or guardian reports flu symptoms, fever, body aches, cough. Onset: The cp symptoms/episode began/occurred 2 day(s) ago. Associated signs and symptoms: Pertinent positives: sore throat, Pertinent negatives: chest pain, diarrhea, vomiting. Patient reports testing positive for COVID-19 2 weeks ago and was feeling better until 2 days ago. Historical: - Allergies: 18:15 Levaquin; iw - PSHx: 18:15 Cholecystectomy; ectopic ; iw - Immunization history:: Adult Immunizations up to date. - Social history:: Smoking status: unknown. ROS: 18:50 Constitutional: Positive for body aches, chills, Negative for fever, poor PO intake, cp 18:50 Eyes: Negative for injury, pain, redness, and discharge, cp 18:50 ENT: Positive for sore throat, Negative for drainage from ear(s), ear pain, difficulty swallowing, difficulty handling secretions, 18:50 Cardiovascular: Negative for chest pain, 18:50 Respiratory: Positive for cough, with no reported sputum, Negative for wheezing, 18:50 Abdomen/GI: Negative for abdominal pain, vomiting, diarrhea, constipation, 18:50 : Negative for urinary symptoms, 18:50 Neuro: Positive for headache, Negative for altered mental status, weakness, 18:50 All other systems are negative, Exam: 18:55 Constitutional: The patient appears in no acute distress, alert, awake, cp non-diaphoretic, non-toxic, well developed, well nourished, uncomfortable, 18:55 Head/Face: Normocephalic, atraumatic. cp 18:55 Eyes: Periorbital structures: appear normal, Conjunctiva: normal, no exudate, no injection, Sclera: no appreciated abnormality, Lids and lashes: appear normal, bilaterally, 18:55 ENT: External ear(s): are unremarkable, Ear canal(s): are normal, clear, TM's: dullness, bilaterally, Nose: is normal, Mouth: Lips: moist, Oral mucosa: moist, Posterior pharynx: Airway: no evidence of obstruction, patent, Tonsils: no enlargement, no exudate, erythema, that is mild, exudate, is not appreciated, 18:55 Neck: ROM/movement: is normal, is supple, no meningismus, no nuchal rigidity, 18:55 Chest/axilla: Inspection: normal, 18:55 Cardiovascular: Rate: bradycardic, Rhythm: regular, Edema: is not appreciated, JVD: is not appreciated, 18:55 Respiratory: the patient does not display signs of respiratory distress, Respirations: normal, no use of accessory muscles, no retractions, labored breathing, is not present, Breath sounds: decreased breath sounds, that are mild, throughout, stridor, is not appreciated, wheezing: is not appreciated, 18:55 Abdomen/GI: Inspection: abdomen appears normal, Palpation: abdomen is soft and non-tender, in all quadrants, 18:55 Neuro: Orientation: to person, place \T\ time. Mentation: is normal, Motor: moves all fours, strength is normal, Sensation: is normal, Gait: is steady, Vital Signs: 18:16 BP 124 / 77; Pulse 50; Resp 18; Temp 97.6; Pulse Ox 100% on R/A; iw 21:11 BP 127 / 76; Pulse 59; Resp 18 S; Pulse Ox 100% on R/A; lg3 MDM: 18:32 Patient medically screened. cp 21:00 Data reviewed: vital signs, nurses notes, lab test result(s), radiologic studies, plain cp films. 21:00 Differential diagnosis: bronchitis, flu, pneumonia. I considered the following cp discharge prescriptions or medication management in the emergency department Medications were administered in the Emergency Department. See MAR. Independent interpretation of the following test(s) in the Emergency Department X-Ray: My interpretation is images of chest negative for focal pneumonia. Counseling: I had a detailed discussion with the patient and/or guardian regarding the historical points, exam findings, and any diagnostic results supporting the discharge/admit diagnosis, lab results, radiology results, to return to the emergency department if symptoms worsen or persist or if there are any questions or concerns that arise at home. 10/11 18:30 Order name: Flu; Complete Time: 21:00 iw 10/11 21:00 Interpretation: Reviewed. cp 10/11 18:30 Order name: SARS RAPID; Complete Time: 21:00 iw 10/11 21:00 Interpretation: Reviewed. cp 10/11 18:30 Order name: Strep; Complete Time: 21:00 iw 10/11 18:56 Order name: Throat Culture EDSD 10/11 18:33 Order name: XRAY Chest Pa And Lat (2 Views); Complete Time: 21:00 cp 10/11 21:00 Interpretation: Report reviewed. cp Administered Medications: 21:09 Drug: Tessalon Perle PO 100 mg PO once Route: PO; lg3 21:09 Follow up: Response: No adverse reaction lg3 Disposition Summary: 10/11/23 21:01 Discharge Ordered Notes: Location: Home cp Problem: new cp Symptoms: are unchanged cp Condition: Stable cp Diagnosis - Acute pharyngitis, unspecified cp - Cough cp Followup: cp - With: Private Physician - When: 2 - 3 days - Reason: Worsening of condition Discharge Instructions: - Discharge Summary Sheet cp - Pharyngitis cp - Cool Mist Vaporizer cp - Cough, Adult cp Forms: - Medication Reconciliation Form cp - Thank You Letter cp - Antibiotic Education cp - Prescription Opioid Use cp - Patient Portal Instructions cp - Leadership Thank You Letter cp Prescriptions: - Bromfed DM 2-30-10 mg/5 mL Oral syrup - administer 10 milliliter ORAL route every 6 hours as needed for cold symptoms; cp 180 milliliter; Refills: 0, Product Selection Permitted - Ibuprofen 800 mg Oral Tablet - take 1 tablet ORAL route every 8 hours As needed take with food; 30 tablet; cp Refills: 0, Product Selection Permitted - Zithromax Z-Sathish 250 mg Oral Tablet - take 1 tablet ORAL route as directed for 5 days Day 1 - take two (2) tablets cp one time. Day 2, 3, 4 , 5 take one (1) tablet once daily.; 6 tablet; Refills: 0, Product Selection Permitted Signatures: Dispatcher [employer] Corrine Saunders, RN RN iw Eitan Balderas PA PA cp Mame Ordaz RN RN lg3
--- NOTE | 2023-10-11 21:03 | ER ---
Nurse's Notes [facility] Name: Yu Oakes Age: 58 yrs Sex: Female : 1965 Arrival Date: 10/11/2023 Time: 17:37 Bed IW3 Private MD: Diagnosis: Acute pharyngitis, unspecified;Cough Presentation: 10/11 18:14 Chief complaint: Patient states: headache, cough, rash, tested positive for COVID 2 iw weeks ago, started to feel bad again on Wednesday , also has body aches and chills. 18:14 Acuity: [place] 4 iw 18:14 Method Of Arrival: Ambulatory iw 21:13 Coronavirus screen: Client denies travel out of the [place] in the last 14 days. Client lg3 presents with at least one sign or symptom that may indicate coronavirus-19. Standard/surgical mask placed on the client. Ebola Screen: No symptoms or risks identified at this time. Initial Sepsis Screen: Does the patient meet any 2 criteria? No. Patient's initial sepsis screen is negative. Does the patient have a suspected source of infection? No. Patient's initial sepsis screen is negative. Risk Assessment: Do you want to hurt yourself or someone else? Patient reports no desire to harm self or others. Onset of symptoms is unknown. Historical: - Allergies: 18:15 Levaquin; iw - PSHx: 18:15 Cholecystectomy; ectopic ; iw - Immunization history:: Adult Immunizations up to date. - Social history:: Smoking status: unknown. Screenin:11 [facility] ED Fall Risk Assessment (Adult) History of falling in the last 3 months, lg3 including since admission No falls in past 3 months (0 pts). Abuse screen: Denies threats or abuse. Denies injuries from another. Nutritional screening: No deficits noted. Tuberculosis screening: No symptoms or risk factors identified. Assessment: 21:11 General: Appears in no apparent distress. uncomfortable, Behavior is calm, cooperative. lg3 Pain: Complains of pain in head, throat, body aches. Neuro: No deficits noted. [place] Agitation-Sedation Scale (RASS): 0 - Alert and Calm Level of Consciousness is awake, alert, obeys commands, Oriented to person, place, time, situation, Reports headache. Cardiovascular: No deficits noted. Respiratory: Reports cough that is pain with cough Airway is patent Respiratory effort is even, unlabored, Respiratory pattern is regular, symmetrical. GI: No deficits noted. No signs and/or symptoms were reported involving the gastrointestinal system. : No deficits noted. No signs and/or symptoms were reported regarding the genitourinary system. EENT: No deficits noted. No signs and/or symptoms were reported regarding the EENT system. Derm: No deficits noted. No signs and/or symptoms reported regarding the dermatologic system. Skin is intact, is healthy with good turgor, Skin is dry, Skin is normal, Skin temperature is warm. Musculoskeletal: No deficits noted. Circulation, motion, and sensation intact. Range of motion: intact in all extremities. Vital Signs: 18:16 BP 124 / 77; Pulse 50; Resp 18; Temp 97.6; Pulse Ox 100% on R/A; iw 21:11 BP 127 / 76; Pulse 59; Resp 18 S; Pulse Ox 100% on R/A; lg3 ED Course: 17:39 Patient arrived in ED. im 17:40 Eitan Balderas PA is PHCP. cp 17:40 Elza Clements MD is Attending Physician. cp 18:15 Triage completed. iw 18:17 Arm band placed on. iw 18:36 Strep Sent. iw 18:36 SARS RAPID Sent. iw 18:36 Flu Sent. iw 19:07 XRAY Chest Pa And Lat (2 Views) In Process Unspecified. EDMS 21:11 Patient has correct armband on for positive identification. lg3 21:11 No provider procedures requiring assistance completed. Patient did not have IV access lg3 during this emergency room visit. Administered Medications: 21:09 Drug: Tessalon Perle PO 100 mg PO once Route: PO; lg3 21:09 Follow up: Response: No adverse reaction lg3 Medication: 21:11 VIS not applicable for this client. lg3 Outcome: 21:01 Discharge ordered by . cp 21:11 Discharged to home ambulatory, lg3 21:11 Condition: stable 21:11 Discharge instructions given to patient, Instructed on discharge instructions, follow up and referral plans. medication usage, Demonstrated understanding of instructions, follow-up care, medications, Prescriptions given X 3, 21:13 Patient left the ED. lg3 Signatures: Dispatcher [employer] EDDC Corrine Heller RN RN iw Eitan Balderas PA PA cp Gibson, Lacie, TAMARA RN lg3 Estrella Clark
[2023-10-11] MEDS ORDERED: BENZONATATE 100 MG CAP PO ONE (21:10)
[2023-10-11 21:28] VITALS: O2SAT 100
[2023-10-11 21:30] VITALS: BP 127/76
[2023-10-11 21:37] VITALS: TEMP 98.5
== END 2023-10-11 21:13 | disposition home or self-care (01) ==
LOC: ER 17:37
DX: J02.9 Acute pharyngitis, unspecified (principal); R05.9 Cough, unspecified; Z11.52 Encounter for screening for COVID-19; Z88.1 Allergy status to other antibiotic agents
CPT/HCPCS: 36415; 71046; 87070; 87081; 87804; 87811; 99283

== ENCOUNTER → 2024-01-14 | Emergency (ER) | payer OTHER ==
[~2024-01-14] MED LIST: ACYCLOVIR 400 MG TABLET ONE; DICYCLOMINE HCL 10 MG CAP ONE; DIPHENOX/ATROP SULF 1 TAB PO ONE; FAMOTIDINE 20 MG/2 ML VIAL IV ONE; HYDROCODONE/APAP 5/325 MG TAB ONE; KETOROLAC 30 MG/ML INJ ONE; METOCLOPRAMIDE 5 MG TAB ONE; MORPHINE 4 MG/ML SYR ONE; NA CHLORIDE 0.9% 1,000 ML ONE; ONDANSETRON 4 MG/2 ML VIAL ONE
--- OUTSIDE RECORDS SUMMARY | 2024-01-14 20:47 | XMS REPORT | Continuity of Care Document ---
Author Name Unknown Address [address] [facility] [address] [place] [address] [facility] Address [address] [facility] [address] [place] [address] Care Team Providers Care Playroom Attendant Name Role Phone BRANDON Attending Clinician Unavailable Dmitri Mckenzie Attending Clinician [phone] Violette Phillips Attending Clinician [phone] ANATOLIY Attending Clinician Unavailable BRANDON Admitting Clinician Unavailable ANATOLIY Admitting Clinician Unavailable Payers Payer Name Policy Type Policy Number Effective Date Expirati on Date Source Allergies, Adverse Reactions, Alerts Allergy Name Allergy Type Status Severity Reaction(s) Onset Date Inactive Date Treating Clinician Comments Source Levaquin Allergy to substanc e Active Severe Other [facility] Social History Smoking Status Start Date Stop Date Source Heavy Tobacco Smoker [facility] Current Every Day Smoker Valeriano ramos [facility] Medications Ordered Medication Name Filled Medication Name Start Date Stop Date Current Medication? Ordering Clinician Indication Dosage Frequency Signature (SIG) Comments Components Source Kenalog 10 mg/mL suspension for injectionTa ke 60 mg by injection route. Kenalog 10 mg/mL suspension for injectionTa ke 60 mg by injection route. 01-28 17:03: 20 No Kenalog 10 mg/mL suspension for injectionT mynor 60 mg by injection route. Derick crowder [facility] cefdinir 300 mg capsule Take 1 capsule every 12 hours by oral route for 10 days. cefdinir 300 mg capsule Take 1 capsule every 12 hours by oral route for 10 days. No 1capsul e(s) Q12H cefdinir 300 mg capsule Take 1 capsule every 12 hours by oral route for 10 days. [facility] prednisone 20 mg tablet Take 1 tablet twice a day by oral route for 5 days. prednisone 20 mg tablet Take 1 tablet twice a day by oral route for 5 days. No 1 BID prednisone 20 mg tablet Take 1 tablet twice a day by oral route for 5 days. [facility] amoxicillin 875 mg tablet Take 1 tablet every 12 hours by oral route for 10 days. amoxicillin 875 mg tablet Take 1 tablet every 12 hours by oral route for 10 days. No 1 Q12H amoxicilli n 875 mg tablet Take 1 tablet every 12 hours by oral route for 10 days. [facility] prednisone 20 mg tablet 3 po first day, 2 po second day, then 1 po qd until finished, total 5 days prednisone 20 mg tablet 3 po first day, 2 po second day, then 1 po qd until finished, total 5 days No prednisone 20 mg tablet 3 po first day, 2 po second day, then 1 po qd until finished, total 5 days [facility] cefdinir 300 mg capsule Take 1 capsule every 12 hours by oral route for 10 days. cefdinir 300 mg capsule Take 1 capsule every 12 hours by oral route for 10 days. No 1capsul e(s) Q12H cefdinir 300 mg capsule Take 1 capsule every 12 hours by oral route for 10 days. [facility] Kenalog 10 mg/mL suspension for injection Take 60 mg by injection route. Kenalog 10 mg/mL suspension for injection Take 60 mg by injection route. No 60mg Kenalog 10 mg/mL suspension for injection Take 60 mg by injection route. [facility] Vital Signs Vital Name Observation Time Observation Value Comments S ource BP Diastolic 2022-04-08 00:00:00 64 mm[Hg] [facility] Height 2022-04-08 00:00:00 69 [in_i] [facility] BMI (Body Mass Index) 2022-04-08 00:00:00 21.8 kg/m2 [facility] BP Systolic 2022-04-08 00:00:00 101 mm[Hg] [facility] Body Weight 2022-04-08 00:00:00 2358.4 [oz_av] [facility] BP Diastolic 2021-08-28 00:00:00 76 mm[Hg] [facility] Height 2021-08-28 00:00:00 69 [in_i] [facility] BMI (Body Mass Index) 2021-08-28 00:00:00 22.4 kg/m2 [facility] BP Systolic 2021-08-28 00:00:00 115 mm[Hg] [facility] Body Weight 2021-08-28 00:00:00 2432 [oz_av] [facility] BP Diastolic 2020-01-29 00:00:00 74 mm[Hg] [place] [facility] Height 2020-01-29 00:00:00 69 [in_i] [place] [facility] BMI (Body Mass Index) 2020-01-29 00:00:00 23.2 kg/m2 [facility] BP Systolic 2020-01-29 00:00:00 110 mm[Hg] Montez saul [facility] Body Weight 2020-01-29 00:00:00 157.2 [lb_av] [place] [facility] Procedures Procedure Date / Time Performed Performing Clinicia n Source Tubal Ligation [facility] Cholecystectomy [facility] Plan of Care Planned Activity Planned Date Details Comments Source Diagnostic Test Pending 2020-01-30 00:00:00 CBC w/ auto diff [code = CBC w/ auto diff] [facility] Diagnostic Test Pending 2020-01-30 00:00:00 CMP, serum or plasma [code = CMP, serum or plasma] [facility] Diagnostic Test Pending 2020-01-30 00:00:00 lipid panel, serum [code = lipid panel, serum] [facility] Diagnostic Test Pending 2020-01-30 00:00:00 HbA1c (hemoglobin A1c), blood [code = HbA1c (hemoglobin A1c), blood] [facility] Diagnostic Test Pending 2020-01-30 00:00:00 TSH, ultra-sensitive, serum [code = TSH, ultra-sensitive, serum] [facility] Instructions [facility] Encounters Start Date/Time End Date/Time Encounter Type Admission Type Attending [facility] Facility Care Department Encounter ID Source 2022-04-08 02:27:00 2022-04-08 02:27:00 Outpatient [facility]AREN[facility] [id number] 2022-04-08 00:00:00 2022-04-08 00:00:00 Outpatient Dmitri Mckenzie [facility] [id number] 2022-04-08 00:00:00 2022-04-08 00:00:00 Dmitri Mckenzie, DO: [address] [facility], [address] [place] [phone] , Ph. [facility] [id number] [facility] 2021-08-28 11:14:00 2021-08-28 11:14:00 Outpatient KAREN_S [facility] [id number] 2021-08-28 00:00:00 2021-08-28 00:00:00 JANIE LedezmaBALE COVERER-C: [address] [facility], [address] [place] [id number] , Ph. [facility] [id number] [facility] 2021-08-28 00:00:00 2021-08-28 00:00:00 Outpatient Violette Phillips [facility] [id number] 2021-08-27 11:31:00 2021-08-27 11:31:00 Outpatient WATERS_S [facility] [id number] [facility] 2020-02-05 12:23:00 2020-02-05 12:23:00 [id number] 2020-01-29 05:22:00 2020-01-29 05:22:00 Outpatient [facility] [id number] [facility] 2020-01-29 00:00:00 2020-01-29 00:00:00 Temitope Gray, BALE COVERER: [address] [place] [address] , Ph. [facility] [phone] [facility]
[2024-01-14 21:13] LABS: Basophils % 0.6 % (0-1.3); Hematocrit 42.2 % (36.0-45.0); Lymphocytes % 25.9 % (15.3-44.8); MCV 91.6 fL (80-100); MPV 8.6 fL (7.6-11.3); Platelets 286 thou/uL (152-406)
[2024-01-14 21:25] LABS: Protime INR 1.07
[2024-01-14 21:30] LABS: ALT/SGPT 20 U/L (13-56); AST/SGOT 16 U/L (15-37); Albumin 3.9 g/dL (3.4-5.0); Albumin/Globulin Ratio 1.1 (1.1-1.8); Alkaline Phosphatase 117 U/L (45-117); Anion Gap 12.6 mEq/L (5.0-15.0); BUN Blood Urea Nitrogen 20 mg/dL (7-18); Bicarbonate 20 mEq/L (21-32); Bilirubin Total 0.4 mg/dL (0.2-1.0); Glomerular Filtration Rate 67 ml/min (=/>90); Glucose Level 115 mg/dL (74-106); Lipase 34 U/L (13-75); Potassium 3.6 mEq/L (3.5-5.1); Protein, Total 7.4 g/dL (6.4-8.2); Sodium Level 137 mEq/L (136-145)
[2024-01-14 21:31] LABS: C-Reactive Protein < 2.90 mg/L (<3.00)
--- NOTE | 2024-01-14 22:10 | RAD REPORT ---
EXAM DESCRIPTION: CTAbdomen Pelvis W Contrast - 01/14/2024 9:59 pm CLINICAL HISTORY: left upper abdominal pain COMPARISON: Abdomen Pelvis W Contrast dated 01/19/2022; Abdomen Pelvis Wo Contrast dated 01/11/2024 TECHNIQUE: CT of the abdomen and pelvis was performed. All CT scans are performed using dose optimization technique as appropriate and may include automated exposure control or mA/KV adjustment according to patient size. FINDINGS: Lower chest: No acute abnormality. Liver: Left hepatic cyst measuring 4.7 cm. Biliary: Cholecystectomy. Mild extrahepatic biliary duct dilatation is probably related to the postch olecystectomy state. Stomach: No significant focal abnormality. Duodenum: No significant focal abnormality. Pancreas: No significant abnormality. Spleen: No significant abnormality. Adrenal: No suspicious lesions. Kidney/ureter: No hydronephrosis. No renal calculi. Too small to characterize and/or benign appearing renal lesions are noted. Retroperitoneum: No retroperitoneal adenopathy. Vascular: No aneurysm. Atherosclerosis. Bowel: Diverticulosis. No evidence of acute diverticulitis. Normal appendix.. Peritoneum: No ascites or free air. Bladder: Grossly unremarkable. Reproductive: No adnexal masses. Bones: No acute fracture. Grade 1 anterolisthesis of L4 on L5. Trace retrolisthesis of L3 on L4. Other: n/a IMPRESSION: No acute intra-abdominal or pelvic finding. No significant change compared with 01/11/20 24.
--- NOTE | 2024-01-14 23:04 | EDPHYS ---
Physician Documentation [facility] Name: Yu Oakes Age: 58 yrs Sex: Female : 1965 Arrival Date: 01/14/2024 Time: 20:43 Bed 7 Private MD: ED Physician Tre Morse HPI: 01/13 20:47 This 58 yrs old Female presents to ER via Unassigned with complaints of Back sp4 Pain, Diarrhea, Rib pain. 22:33 58-year-old female presents with 5 days of left upper quadrant abdominal pain nonbloody sp4 diarrhea and vomiting.. Patient was here on 01/11/2024 and had a full abdominal workup. Chest x-ray revealed small right upper lobe nodular opacities however CT chest PE protocol has revealed no pulmonary embolism and no other acute findings in the chest. No acute abnormality in the lungs. CT abdomen and pelvis has revealed benign low-density lesion left hepatic lobe consistent with cyst, cholecystectomy , no acute intra-abdominal or pelvic findings. There is a grade 1 anterolisthesis of L4 on L5. Multiple degenerative changes in the spine. Since her visit on 01/11/2024 patient reports persistent left upper quadrant abdominal pain diarrhea and vomiting.. Historical: - Allergies: 20:49 Levaquin; km8 - PSHx: 20:49 Cholecystectomy; ectopic ; km8 - Immunization history:: Client reports having NOT received the Covid vaccine. Flu vaccine is not up to date. - Social history:: Smoking status: Patient reports the use of cigarette tobacco products, smokes one-half pack cigarettes per day, Patient/guardian denies using alcohol, street drugs. - Family history:: not pertinent. ROS: 22:33 Constitutional: Negative for fever, chills, and weight loss, positive left upper sp4 quadrant abdominal pain, positive vomiting, positive diarrhea that is nonbloody. 22:33 All other systems are negative, Exam: 22:33 Constitutional: This is a well developed, well nourished patient who is awake, alert, sp4 and in no acute distress. Head/Face: Normocephalic, atraumatic. Eyes: Pupils equal round and reactive to light, extra-ocular motions intact. Lids and lashes normal. Conjunctiva and sclera are not injected. Cornea within normal limits. Periorbital areas with no swelling, redness, or edema. ENT: Nares patent. No nasal discharge, no septal abnormalities noted. Tympanic membranes are normal and external auditory canals are clear. Oropharynx with no redness, swelling, or masses, exudates, or evidence of obstruction, uvula midline. Mucous membranes moist. Neck: Trachea midline, no thyromegaly or masses palpated, and no cervical lymphadenopathy. Supple, full range of motion without nuchal rigidity, or vertebral point tenderness. Chest/axilla: Normal chest wall appearance and motion. Nontender with no deformity. No lesions are appreciated. Cardiovascular: Regular rate and rhythm with a normal S1 and S2. No gallops, murmurs, or rubs. Normal PMI, no JVD. No pulse deficits. Respiratory: Lungs have equal breath sounds bilaterally, clear to auscultation and percussion. No rales, rhonchi or wheezes noted. No increased work of breathing, no retractions or nasal flaring. Abdomen/GI: Soft, with normal bowel sounds. No distension or tympany. No guarding or rebound. No evidence of tenderness throughout. Back: No spinal tenderness. No costovertebral tenderness. Skin: Warm, dry with normal turgor. Normal color with no evidence of cellulitis. There is left lateral anterior posterior chest wall rash consistent with acute shingles early stage without ulcerated lesions. Skin lesions are clearly and dermatomal distribution. MS/ Extremity: Pulses equal, no cyanosis. Neurovascular intact. Full, normal range of motion. Neuro: Awake and alert, GCS 15, oriented to person, place, time, and situation. Cranial nerves II-XII grossly intact. Motor strength 5/5 in all extremities. Sensory grossly intact. Psych: Awake, alert, with orientation to person, place and time. Behavior, mood, and affect are within normal limits Vital Signs: 20:49 BP 149 / 94; Pulse 55; Resp 18; Temp 98(O); Pulse Ox 100% ; Weight 67.13 kg (R); Height km8 5 ft. 9 in. (R); Pain 10/10; 21:21 BP 149 / 86; Pulse 56; Resp 17 S; Pulse Ox 100% on R/A; ha1 22:00 BP 148 / 83; Pulse 54; Resp 17 S; Pulse Ox 98% on R/A; ha1 22:30 BP 153 / 90; Pulse 55; Resp 17 S; Pulse Ox 100% on R/A; ha1 23:00 BP 147 / 88; Pulse 57; Resp 17 S; Temp 98.7(O); Pulse Ox 100% on R/A; ha1 20:49 Body Mass Index 21.86 (67.13 kg, 175.26 cm) [facility] 20:49 Pain Scale: Adult km8 Coram Coma Score: 22:48 Eye Response: spontaneous(4). Motor Response: obeys commands(6). Verbal Response: sp4 oriented(5). Total: 15. MDM: 21:49 Patient medically screened. sp4 23:02 ED course: EXAM DESCRIPTION: CTAbdomen Pelvis W Contrast - 01/14/2024 9:59 pm CLINICAL sp4 HISTORY: left upper abdominal pain COMPARISON: Abdomen Pelvis W Contrast dated 01/19/2022; Abdomen Pelvis Wo Contrast dated 01/11/2024 TECHNIQUE: CT of the abdomen and pelvis was performed. All CT scans are performed using dose optimization technique as appropriate and may include automated exposure control or mA/KV adjustment according to patient size. FINDINGS: Lower chest: No acute abnormality. Liver: Left hepatic cyst measuring 4.7 cm. Biliary: Cholecystectomy. Mild extrahepatic biliary duct dilatation is probably related to the postcholecystectomy state. Stomach: No significant focal abnormality. Duodenum: No significant focal abnormality. Pancreas: No significant abnormality. Spleen: No significant abnormality. Adrenal: No suspicious lesions. Kidney/ureter: No hydronephrosis. No renal calculi. Too small to characterize and/or benign appearing renal lesions are noted. Retroperitoneum: No retroperitoneal adenopathy. Vascular: No aneurysm. Atherosclerosis. Bowel: Diverticulosis. No evidence of acute diverticulitis. Normal appendix.. Peritoneum: No ascites or free air. Bladder: Grossly unremarkable. Reproductive: No adnexal masses. Bones: No acute fracture. Grade 1 anterolisthesis of L4 on L5. Trace retrolisthesis of L3 on L4. Other: n/a IMPRESSION: No acute intra-abdominal or pelvic finding. No significant change compared with 01/11/2024. . 01/13 20:59 Order name: CBC with Diff; Complete Time: 22:29 sp4 01/13 20:59 Order name: CMP; Complete Time: 22:29 sp4 01/13 20:59 Order name: Lipase; Complete Time: 22:29 sp4 01/13 20:59 Order name: PT-INR; Complete Time: 22:29 sp4 01/13 20:59 Order name: CRP; Complete Time: 22:29 sp4 01/13 21:15 Order name: Glucose, Ancillary Testing; Complete Time: 22:29 EDMS 01/13 20:59 Order name: CT Abd/Pelvis - IV Contrast Only; Complete Time: 22:29 sp4 01/13 20:59 Order name: IV Saline Lock; Complete Time: 21:06 sp4 01/13 20:59 Order name: Labs collected and sent; Complete Time: 21:06 sp4 Administered Medications: 21:08 Drug: NS 0.9% IV 1000 ml IV at 1 bolus Per protocol; 1000 mL bolus Route: IV; Rate: 1 ha1 bolus; Site: right forearm; 22:59 Follow up: IV Status: Infusion continued; IV Intake: 1000ml km8 23:25 Follow up: Response: No adverse reaction; IV Status: Completed infusion; IV Intake: ha1 1000ml 21:08 Drug: Famotidine IVP 20 mg IVP once; dilute with 10 mL 0.9% NaCl; give over 2 minutes ha1 Route: IVP; Site: right forearm; 21:30 Follow up: Response: No adverse reaction; Marked relief of symptoms ha1 22:59 Follow up: Response: No adverse reaction km8 21:10 Drug: Ondansetron IVP 4 mg IVP once; over 2 minutes Route: IVP; Site: right forearm; ha1 22:59 Follow up: Response: No adverse reaction 8 21:12 Drug: TORadol - Ketorolac IVP 30 mg IVP once Route: IVP; Site: right forearm; 1 23:00 Follow up: Response: No adverse reaction km8 21:14 Drug: morphine IVP or IV 4 mg IVP once over 4 mins Route: IVP; Infused Over: 4 mins; ha1 Site: right forearm; 23:00 Follow up: Response: No adverse reaction km8 21:15 Drug: Diphenoxylate-Atropine PO 2 tabs PO once Route: PO; ha1 22:00 Follow up: Response: No adverse reaction; Marked relief of symptoms 1 22:59 Follow up: Response: No adverse reaction km8 22:59 Drug: HYDROcodone-acetaminophen PO 5 mg-325 mg 2 tabs PO once Route: PO; km8 23:24 Follow up: Response: No adverse reaction; Pain is decreased ha1 22:59 Drug: MetoCLOPramide PO 10 mg PO once Route: PO; 8 23:24 Follow up: Response: No adverse reaction; Marked relief of symptoms ha1 22:59 Not Given (Patient Refused): [id number] mg PO once km8 22:59 Drug: Acyclovir PO 800 mg PO once Route: PO; km8 23:24 Follow up: Response: No adverse reaction; Marked relief of symptoms ha1 Disposition Summary: 01/14/24 23:04 Discharge Ordered Notes: Location: Home sp4 Problem: new sp4 Symptoms: have improved sp4 Condition: Stable sp4 Diagnosis - Herpes Zoster sp4 Followup: sp4 - With: Private Physician - When: 7 - 10 days - Reason: Recheck today's complaints Discharge Instructions: - Discharge Summary Sheet sp4 - Shingles, [id number] sp4 Forms: - Patient Portal Instructions sp4 Prescriptions: - valacyclovir 1 gram Oral tablet - take 1 tablet ORAL route every 12 hours for 10 days; 20 tablet; Refills: 0, sp4 Product Selection Permitted - Ibuprofen 800 mg Oral Tablet - take 1 tablet ORAL route every 8 hours As needed take with food; 30 tablet; sp4 Refills: 0, Product Selection Permitted - Tramadol 50 mg Oral tablet - take 1 tablet ORAL route every 8 hours as needed; 20 tablet; Refills: 0, sp4 Product Selection Permitted Signatures: Dispatcher [employer] EDMS Joanna Mei RN RN ha1 Tre Morse MD MD 4 Natty De Jesus RN RN km8 Corrections: (The following items were deleted from the chart) 22:49 22:33 Constitutional: This is a well developed, well nourished patient who is awake, sp4 alert, and in no acute distress. Head/Face: Normocephalic, atraumatic. Eyes: Pupils equal round and reactive to light, extra-ocular motions intact. Lids and lashes normal. Conjunctiva and sclera are not injected. Cornea within normal limits. Periorbital areas with no swelling, redness, or edema. ENT: Nares patent. No nasal discharge, no septal abnormalities noted. Tympanic membranes are normal and external auditory canals are clear. Oropharynx with no redness, swelling, or masses, exudates, or evidence of obstruction, uvula midline. Mucous membranes moist. Neck: Trachea midline, no thyromegaly or masses palpated, and no cervical lymphadenopathy. Supple, full range of motion without nuchal rigidity, or vertebral point tenderness. Chest/axilla: Normal chest wall appearance and motion. Nontender with no deformity. No lesions are appreciated. Cardiovascular: Regular rate and rhythm with a normal S1 and S2. No gallops, murmurs, or rubs. Normal PMI, no JVD. No pulse deficits. Respiratory: Lungs have equal breath sounds bilaterally, clear to auscultation and percussion. No rales, rhonchi or wheezes noted. No increased work of breathing, no retractions or nasal flaring. Abdomen/GI: Soft, with normal bowel sounds. No distension or tympany. No guarding or rebound. No evidence of tenderness throughout. Back: No spinal tenderness. No costovertebral tenderness. Skin: Warm, dry with normal turgor. Normal color with no rashes, no lesions, and no evidence of cellulitis. MS/ Extremity: Pulses equal, no cyanosis. Neurovascular intact. Full, normal range of motion. Neuro: Awake and alert, GCS 15, oriented to person, place, time, and situation. Cranial nerves II-XII grossly intact. Motor strength 5/5 in all extremities. Sensory grossly intact. Psych: Awake, alert, with orientation to person, place and time. Behavior, mood, and affect are within normal limits sp4
--- NOTE | 2024-01-14 23:04 | ER ---
Nurse's Notes [facility] Name: Yu Oakes Age: 58 yrs Sex: Female : 1965 Arrival Date: 01/14/2024 Time: 20:43 Bed 7 Private MD: Diagnosis: Herpes Zoster Presentation: 01/13 20:46 Chief complaint: Patient states: pain in left ribs, vomit, diarrhea, nausea, starting km8 Wednesday; seen Wednesday here, but has had no relief. Coronavirus screen: Client denies travel out of the [place] in the last 14 days. Ebola Screen: No symptoms or risks identified at this time. Risk Assessment: Do you want to hurt yourself or someone else? Patient reports no desire to harm self or others. Onset of symptoms was January 10, 2024. 20:46 Method Of Arrival: Ambulatory km8 20:46 Acuity: JEFFERSON 3 km8 20:49 Initial Sepsis Screen: Does the patient meet any 2 criteria? No. Patient's initial [facility] sepsis screen is negative. Does the patient have a suspected source of infection? No. Patient's initial sepsis screen is negative. Triage Assessment: 20:49 General: Appears uncomfortable, Behavior is cooperative, appropriate for age, restless. km8 Pain: Complains of pain in left ribs Pain currently is 10 out of 10 on a pain scale. EENT: No signs and/or symptoms were reported regarding the EENT system. Neuro: Level of Consciousness is awake, alert, obeys commands, Oriented to person, place, time, situation. Cardiovascular: Denies chest pain, Patient's skin is warm and dry. Respiratory: Reports shortness of breath Airway is patent Respiratory effort is even, unlabored, Respiratory pattern is regular, symmetrical. GI: Reports diarrhea, nausea, vomiting. : No signs and/or symptoms were reported regarding the genitourinary system. Derm: Skin is intact, is healthy with good turgor, Skin is dry, Skin is pink, warm \T\ dry. normal, Skin temperature is warm. Musculoskeletal: Range of motion: intact in all extremities. Historical: - Allergies: 20:49 Levaquin; km8 - PSHx: 20:49 Cholecystectomy; ectopic ; km8 - Immunization history:: Client reports having NOT received the Covid vaccine. Flu vaccine is not up to date. - Social history:: Smoking status: Patient reports the use of cigarette tobacco products, smokes one-half pack cigarettes per day, Patient/guardian denies using alcohol, street drugs. - Family history:: not pertinent. Screenin:[address] [facility] ED Fall Risk Assessment (Adult) History of falling in the last 3 months, mb9 including since admission No falls in past 3 months (0 pts) Confusion or Disorientation No (0 pts) Intoxicated or Sedated No (0 pts) Impaired Gait No (0 pts) Mobility Assist Device Used No (0 pt) Altered Elimination No (0 pt) Score/Fall Risk Level 0 - 2 = Low Risk Oriented to surroundings, Maintained a safe environment, Educated pt \T\ family on fall prevention, incl call for assistance when getting out of bed. Abuse screen: Denies threats or abuse. Nutritional screening: No deficits noted. Tuberculosis screening: No symptoms or risk factors identified. Assessment: 20:51 General: Appears uncomfortable, Behavior is cooperative. Pain: Complains of pain in ha1 abdomen Pain radiates to back Pain currently is 9 out of 10 on a pain scale. Quality of pain is described as sharp, throbbing, Alleviated by medications, Aggravated by increased activity. Neuro: Level of Consciousness is awake, alert, obeys commands, Oriented to person, place, time, situation. Cardiovascular: Capillary refill < 3 seconds Patient's skin is warm and dry. Respiratory: Airway is patent Respiratory effort is even, unlabored, Respiratory pattern is regular, symmetrical. GI: Abdomen is round non-distended, Bowel sounds present X 4 quads. Reports diarrhea, nausea, vomiting. : No signs and/or symptoms were reported regarding the genitourinary system. Derm: Skin is pink, warm \T\ dry. Musculoskeletal: Circulation, motion, and sensation intact. Range of motion: intact in all extremities, Reports pain in back. 21:50 Reassessment: Patient and/or family updated on plan of care and expected duration. Pain ha1 level reassessed. Patient is alert, oriented x 3, equal unlabored respirations, skin warm/dry/pink. 21:50 Derm: Rash noted that is itchy, red, raised, on left upper quadrant DR. MORSE AT ha1 BEDSIDE. 22:50 Reassessment: Patient and/or family updated on plan of care and expected duration. Pain ha1 level reassessed. Patient is alert, oriented x 3, equal unlabored respirations, skin warm/dry/pink. Patient states feeling better. Patient states symptoms have improved. Vital Signs: 20:49 BP 149 / 94; Pulse 55; Resp 18; Temp 98(O); Pulse Ox 100% ; Weight 67.13 kg (R); Height km8 5 ft. 9 in. (R); Pain 10/10; 21:21 BP 149 / 86; Pulse 56; Resp 17 S; Pulse Ox 100% on R/A; ha1 22:00 BP 148 / 83; Pulse 54; Resp 17 S; Pulse Ox 98% on R/A; ha1 22:30 BP 153 / 90; Pulse 55; Resp 17 S; Pulse Ox 100% on R/A; ha1 23:00 BP 147 / 88; Pulse 57; Resp 17 S; Temp 98.7(O); Pulse Ox 100% on R/A; ha1 20:49 Body Mass Index 21.86 (67.13 kg, 175.26 cm) km8 20:49 Pain Scale: Adult km8 [place] Coma Score: 22:48 Eye Response: spontaneous(4). Motor Response: obeys commands(6). Verbal Response: sp4 oriented(5). Total: 15. ED Course: 20:44 Patient arrived in ED. rg4 20:47 Tre Morse MD is Attending Physician. sp4 20:49 Triage completed. km8 20:49 Arm band placed on right wrist. km8 20:54 Placed in gown. Bed in low position. Call light in reach. Side rails up X 1. Client mb9 placed on continuous cardiac and pulse oximetry monitoring. NIBP monitoring applied. teletypesetter monitor on. Door closed. Noise minimized. Warm blanket given. 21:06 CRP Sent. mb9 21:06 PT-INR Sent. mb9 21:06 CBC with Diff Sent. mb9 21:06 CMP Sent. mb9 21:06 Lipase Sent. mb9 21:09 Inserted saline lock: 20 gauge in right forearm, using aseptic technique. mb9 22:00 CT Abd/Pelvis - IV Contrast Only In Process Unspecified. EDMS 23:22 No provider procedures requiring assistance completed. IV discontinued, intact, ha1 bleeding controlled, No redness/swelling at site. Pressure dressing applied. 23:23 Provided Education on: FOLLOWING UP WITH PCP. MEDICATION ADMINISTRATION . ha1 Administered Medications: 21:08 Drug: NS 0.9% IV 1000 ml IV at 1 bolus Per protocol; 1000 mL bolus Route: IV; Rate: 1 ha1 bolus; Site: right forearm; :59 Follow up: IV Status: Infusion continued; IV Intake: 1000ml km8 23:25 Follow up: Response: No adverse reaction; IV Status: Completed infusion; IV Intake: ha1 1000ml 21:08 Drug: Famotidine IVP 20 mg IVP once; dilute with 10 mL 0.9% NaCl; give over 2 minutes ha1 Route: IVP; Site: right forearm; 21:30 Follow up: Response: No adverse reaction; Marked relief of symptoms ha1 :59 Follow up: Response: No adverse reaction 8 21:10 Drug: Ondansetron IVP 4 mg IVP once; over 2 minutes Route: IVP; Site: right forearm; ha1 :59 Follow up: Response: No adverse reaction 8 21:12 Drug: TORadol - Ketorolac IVP 30 mg IVP once Route: IVP; Site: right forearm; ha1 23:00 Follow up: Response: No adverse reaction km8 21:14 Drug: morphine IVP or IV 4 mg IVP once over 4 mins Route: IVP; Infused Over: 4 mins; ha1 Site: right forearm; 23:00 Follow up: Response: No adverse reaction 8 21:15 Drug: Diphenoxylate-Atropine PO 2 tabs PO once Route: PO; ha1 22:00 Follow up: Response: No adverse reaction; Marked relief of symptoms ha 22:59 Follow up: Response: No adverse reaction 8 22:59 Drug: HYDROcodone-acetaminophen PO 5 mg-325 mg 2 tabs PO once Route: PO; km8 23:24 Follow up: Response: No adverse reaction; Pain is decreased ha1 :59 Drug: MetoCLOPramide PO 10 mg PO once Route: PO; km8 23:24 Follow up: Response: No adverse reaction; Marked relief of symptoms ha1 :59 Not Given (Patient Refused): [id number] mg PO once 8 22:59 Drug: Acyclovir PO 800 mg PO once Route: PO; km8 23:24 Follow up: Response: No adverse reaction; Marked relief of symptoms ha1 Medication: 20:54 VIS not applicable for this client. [email or web address] Intake: 22:59 IV: 1000ml; Total: 1000ml. km8 23:25 IV: 1000ml; Total: 2000ml. ha1 Outcome: 23:04 Discharge ordered by . jose alejandro 23:22 Discharged to home ambulatory, with family, ha1 23:22 Condition: stable 23:22 Discharge instructions given to patient, family, Instructed on discharge instructions, follow up and referral plans. medication usage, Demonstrated understanding of instructions, follow-up care, medications, Prescriptions given X 3, 23:26 Patient left the ED. ha1 Signatures: Dispatcher [employer] EDMS Monique Real rg4 Joanna Mei RN RN ha1 Temitope Klein RN RN mb9 Tre Morse MD MD sp4 Natty De Jesus RN RN km8
[2024-01-14 23:40] VITALS: BP 147/88; TEMP 98.7; O2SAT 100
== END ==
LOC: ER 20:43
DX: B02.9 Zoster without complications (principal); R19.7 Diarrhea, unspecified; R11.10 Vomiting, unspecified; F17.210 Nicotine dependence, cigarettes, uncomplicated; Z88.1 Allergy status to other antibiotic agents
CPT/HCPCS: 96361; 85025; 36415; 85610; 82947; 83690; 80053; 86140; 74177; 96375; 96374; 99285; Q9967; J2405; J7030

== ENCOUNTER 2024-03-13 13:53 | Emergency (ER) | payer OTHER ==
--- OUTSIDE RECORDS SUMMARY | 2024-03-13 13:56 | XMS REPORT | Continuity of Care Document ---
Author Name Unknown Address [address] [place] [address] [facility] Address [address] [place] [address] Care Team Providers Care Metalizer Name Role Phone GROUP, [facility] Attending Clinicia n Unavailable ZIYAD BENITO Attending Clinician Unavailable BRANDON Attending Clinician Unavailable Dmitri Mckenzie Attending Clinician [phone] Violette Phillips Attending Clinician [phone] ANATOLIY Attending Clinician Unavailable BRANDON Admitting Clinician Unavailable ANATOLIY Admitting Clinician Unavailable Payers Payer Name Policy Type Policy Number Effective Date Expirati on Date Source [employer] [facility] ON/OFF 9 [id number] 2024 00:00:00 Allergies, Adverse Reactions, Alerts Allergy Name Allergy Type Status Severity Reaction(s) Onset Date Inactive Date Treating Clinician Comments Source Levaquin Allergy to substanc e Active Severe Other [facility] Social History Social Habit Start Date Stop Date Quantity Comments Source Sexual orientation Julian handy Silverman - External Sex Assigned At 1965 00:00:00 1965 00:00:00 Mariela Silverman - External Smoking Status Start Date Stop Date Source Tobacco smoking consumption unknown Mariela Silverman - Ext ernal Heavy Tobacco Smoker [facility] Current Every Day Smoker [facility] Medications Ordered Medication Name Filled Medication Name Start Date Stop Date Current Medication? Ordering Clinician Indication Dosage Frequency Signature (SIG) Comments Components Source Pregabalin 75 MG oral Capsule 02-01 00:00: 00 Yes [id number] 75mg Take 1 capsule (75 mg total) by mouth 2 times daily. Mariela west Diclofenac Potassium 50 MG oral Tablet 02-01 00:00: 00 Yes [id number] 1 p.o. twice daily with food as needed pain. Mariela west Kenalog 10 mg/mL suspension for injectionTa ke 60 mg by injection route. Kenalog 10 mg/mL suspension for injectionTa ke 60 mg by injection route. 01-28 17:03: 20 No Kenalog 10 mg/mL suspension for injectionT mynor 60 mg by injection route. [facility] cefdinir 300 mg capsule Take 1 capsule every 12 hours by oral route for 10 days. cefdinir 300 mg capsule Take 1 capsule every 12 hours by oral route for 10 days. No 1capsul e(s) Q12H cefdinir 300 mg capsule Take 1 capsule every 12 hours by oral route for 10 days. [facility] prednisone 20 mg tablet Take 1 tablet twice a day by oral route for 5 days. prednisone 20 mg tablet Take 1 tablet twice a day by oral route for 5 days. No 1 BID prednisone 20 mg tablet Take 1 tablet twice a day by oral route for 5 days. [facility] amoxicillin 875 mg tablet Take 1 tablet every 12 hours by oral route for 10 days. amoxicillin 875 mg tablet Take 1 tablet every 12 hours by oral route for 10 days. No 1 Q12H amoxicilli n 875 mg tablet Take 1 tablet every 12 hours by oral route for 10 days. [facility] cefdinir 300 mg capsule Take 1 capsule every 12 hours by oral route for 10 days. cefdinir 300 mg capsule Take 1 capsule every 12 hours by oral route for 10 days. No 1capsul e(s) Q12H cefdinir 300 mg capsule Take 1 capsule every 12 hours by oral route for 10 days. [facility] Vital Signs Vital Name Observation Time Observation Value Comments S wally BP Diastolic 2022-04-08 00:00:00 64 mm[Hg] [facility] Height 2022-04-08 00:00:00 69 [in_i] [facility] BMI (Body Mass Index) 2022-04-08 00:00:00 21.8 kg/m2 [facility] BP Systolic 2022-04-08 00:00:00 101 mm[Hg] [facility] Body Weight 2022-04-08 00:00:00 2358.4 [oz_av] [facility] BP Diastolic 2021-08-28 00:00:00 76 mm[Hg] [facility] Height 2021-08-28 00:00:00 69 [in_i] [facility] BMI (Body Mass Index) 2021-08-28 00:00:00 22.4 kg/m2 [facility] BP Systolic 2021-08-28 00:00:00 115 mm[Hg] [facility] Body Weight 2021-08-28 00:00:00 2432 [oz_av] [facility] BP Diastolic 2020-01-29 00:00:00 74 mm[Hg] [facility] Height 2020-01-29 00:00:00 69 [in_i] [facility] BMI (Body Mass Index) 2020-01-29 00:00:00 23.2 kg/m2 [facility] BP Systolic 2020-01-29 00:00:00 110 mm[Hg] [facility] Body Weight 2020-01-29 00:00:00 157.2 [lb_av] [facility] Procedures Procedure Date / Time Performed Performing Clinicia n Source Tubal Ligation [facility] Cholecystectomy [facility] Plan of Care Planned Activity Planned Date Details Comments Source Diagnostic Test Pending 2020-01-30 00:00:00 CBC w/ auto diff [code = CBC w/ auto diff] [facility] Diagnostic Test Pending 2020-01-30 00:00:00 CMP, serum or plasma [code = CMP, serum or plasma] [facility] Diagnostic Test Pending 2020-01-30 00:00:00 lipid panel, serum [code = lipid panel, serum] [facility] Diagnostic Test Pending 2020-01-30 00:00:00 HbA1c (hemoglobin A1c), blood [code = HbA1c (hemoglobin A1c), blood] [facility] Diagnostic Test Pending 2020-01-30 00:00:00 TSH, ultra-sensitive, serum [code = TSH, ultra-sensitive, serum] [facility] Instructions [facility] Encounters Start Date/Time End Date/Time Encounter Type Admission Type Attending [facility] Facility Care Department Encounter ID Source 2024-03-13 00:00:00 2024-03-13 00:00:00 Outpatient MARIELA MASSEY [id number] [facility] 2024-02-23 00:00:00 2024-02-23 00:00:00 Outpatient ZIYAD BENITO [id number] [facility] 2024-02-23 00:00:00 2024-02-23 00:00:00 Outpatient ZIYAD BENITO [id number] [facility] 2024-02-02 15:45:00 2024-02-02 15:45:00 Outpatient ZIYAD BENITO [id number] [facility] 2022-04-08 02:27:00 2022-04-08 02:27:00 Outpatient WATERS_S [facility] [id number] [facility] 2022-04-08 00:00:00 2022-04-08 00:00:00 Outpatient Dmitri Mckenzie [facility] [id number] 2022-04-08 00:00:00 2022-04-08 00:00:00 Dmitri Mckenzie, DO: [address], [address], [place] [address] , Ph. [facility] [id number] [facility] 2021-08-28 11:14:00 2021-08-28 11:14:00 Outpatient [facility]ERS[facility]S [facility] [id number] [facility] 2021-08-28 00:00:00 2021-08-28 00:00:00 Violette Phillips APRN-STEEL S[employer] ERECTOR-C: [address], [address], [place] [address] , Ph. [facility] [id number] [facility] 2021-08-28 00:00:00 2021-08-28 00:00:00 Outpatient Violette Phillips [facility] [id number] 2021-08-27 11:31:00 2021-08-27 11:31:00 Outpatient WATERS[facility]S [facility] [id number] [facility] 2020-02-05 12:23:00 2020-02-05 12:23:00 Outpatient MYRA_[facility] CHEN [facility] [id number] [facility] 2020-01-29 05:22:00 2020-01-29 05:22:00 Outpatient SHIMEK_TEMITOPE _MARIO [facility] [id number] [facility] 2020-01-29 00:00:00 2020-01-29 00:00:00 Temitope Gray, [employer] S[employer] ERECTOR: [place] [address] , Ph. [facility] [id number] [facility]
[2024-03-13] MEDS ORDERED: HYDROCODONE/APAP 5/325 MG TAB ONE (14:57)
[2024-03-13] MEDS ORDERED: dexAMETHasone 10 MG/ML VIAL ONE (14:57)
[2024-03-13] MEDS ORDERED: GABAPENTIN 300 MG CAP ONE (14:57)
--- NOTE | 2024-03-13 15:41 | ER ---
Nurse's Notes [facility] Name: Yu Oakes Age: 58 yrs Sex: Female : 1965 Arrival Date: 03/13/2024 Time: 13:53 Bed 18 Private MD: Diagnosis: post-herpetic neuralgia Presentation: 03/13 14:02 Chief complaint: Patient states: pt was diagnosis with shingles beginning of January and as6 has been in pain ever since. Coronavirus screen: At this time, the client does not indicate any symptoms associated with coronavirus-19. Ebola Screen: No symptoms or risks identified at this time. Initial Sepsis Screen: Does the patient meet any 2 criteria? No. Patient's initial sepsis screen is negative. Does the patient have a suspected source of infection? No. Patient's initial sepsis screen is negative. Risk Assessment: Do you want to hurt yourself or someone else? Patient reports no desire to harm self or others. Onset of symptoms is unknown. 14:02 Method Of Arrival: Wheelchair as6 14:02 Acuity: JEFFERSON 4 as6 Historical: - Allergies: 14:01 Levaquin; as6 14:01 Codeine; as6 - PSHx: 14:01 Cholecystectomy; ectopic ; as6 - Immunization history:: Adult Immunizations up to date. - Infectious Disease History:: Denies. - Social history:: Smoking status: Patient reports the use of cigarette tobacco products, smokes one-half pack cigarettes per day. Screenin:06 [facility] ED Fall Risk Assessment (Adult) History of falling in the last 3 months, nj1 including since admission No falls in past 3 months (0 pts) Confusion or Disorientation No (0 pts) Intoxicated or Sedated No (0 pts) Impaired Gait No (0 pts) Mobility Assist Device Used No (0 pt) Altered Elimination No (0 pt) Score/Fall Risk Level 0 - 2 = Low Risk Oriented to surroundings, Maintained a safe environment, Hourly rounding (assess needs \T\ fall precautionary measures) done. Abuse screen: Denies threats or abuse. Denies injuries from another. Nutritional screening: No deficits noted. Tuberculosis screening: No symptoms or risk factors identified. Assessment: 15:00 General: Appears in no apparent distress. comfortable, Behavior is calm, cooperative, nj1 appropriate for age. 15:00 Pain: Complains of pain in back and under left breast Pain currently is 10 out of 10 on nj1 a pain scale. Neuro: Level of Consciousness is awake, alert, obeys commands, Oriented to person, place, time, situation. Cardiovascular: Patient's skin is warm and dry. Respiratory: Airway is patent Respiratory effort is even, unlabored. 16:00 Reassessment: Patient is alert, oriented x 3, equal unlabored respirations, skin aa5 warm/dry/pink. Patient states feeling better. Patient states symptoms have improved. Vital Signs: 14:00 BP 105 / 79; Pulse 55; Resp 16 S; Temp 97.9(O); Pulse Ox 100% on R/A; Weight 67.13 kg as6 (R); Height 5 ft. 9 in. (R); Pain 10/10; 14:00 Body Mass Index 21.86 (67.13 kg, 175.26 cm) as6 14:00 Pain Scale: Adult as6 ED Course: 13:56 Patient arrived in ED. mr 13:56 Radha Zapien PA-C is PHCP. sb4 13:56 Mumtaz Singleton MD is Attending Physician. sb4 14:00 Arm band placed on. as6 14:03 Triage completed. as6 14:21 Bere Stewart, TAMARA is Primary Nurse. nj1 15:06 Patient has correct armband on for positive identification. Bed in low position. Call nj1 light in reach. Provided Education on: call light, fall precautions. 15:41 Tevin Garcia MD is Referral Physician. sb4 16:00 No provider procedures requiring assistance completed. Patient did not have IV access aa5 during this emergency room visit. Administered Medications: 15:04 Drug: HYDROcodone-acetaminophen PO 5 mg-325 mg 2 tabs PO once Route: PO; nj1 16:00 Follow up: Response: No adverse reaction aa5 15:04 Drug: Gabapentin PO 300 mg PO once Route: PO; nj1 16:00 Follow up: Response: No adverse reaction aa5 15:04 Drug: Dexamethasone IM 10 mg IM once Route: IM; Site: right deltoid; nj1 16:00 Follow up: Response: No adverse reaction aa5 Medication: 16:00 VIS not applicable for this client. aa5 Outcome: 15:41 Discharge ordered by . sb4 16:00 Discharged to home ambulatory, aa5 16:00 Condition: improved 16:00 Discharge instructions given to patient, Instructed on discharge instructions, follow up and referral plans. medication usage, Demonstrated understanding of instructions, follow-up care, medications, Prescriptions given X 3, 16:06 Patient left the ED. rs5 Signatures: Temitope Driver, Reg Reg mr KwabenaLara, RN RN aa5 Kenneth Duong, RN RN as6 Radha Zapien PA-C PA-C sb4 Gustavo Shore RN RN rs5 Bere Stewart RN RN nj1
--- NOTE | 2024-03-13 15:42 | EDPHYS ---
Physician Documentation [facility] Name: Yu Oakes Age: 58 yrs Sex: Female : 1965 Arrival Date: 03/13/2024 Time: 13:53 Bed 18 Private MD: ED Physician Mumtaz Singleton HPI: 03/13 14:23 This 58 yrs old Female presents to ER via Wheelchair with complaints of rib pain. sb4 14:44 patient states that she was diagnosed with shingles about 2 months ago. she took a full sb4 course of valtrex, tramadol, and 800 mg ibuprofen. states her pain has persisted. she had a teledoc appt with her PCP who prescribed her lyrica. states it only helped if she took double the amount, which made her go to sleep. Historical: - Allergies: 14:01 Levaquin; as6 14:01 Codeine; as6 - PSHx: 14:01 Cholecystectomy; ectopic ; as6 - Immunization history:: Adult Immunizations up to date. - Infectious Disease History:: Denies. - Social history:: Smoking status: Patient reports the use of cigarette tobacco products, smokes one-half pack cigarettes per day. ROS: 14:44 Constitutional: Negative for fever, chills, and weight loss, sb4 14:44 MS/extremity: Positive for per HPI, 14:44 All other systems are negative, Exam: 14:44 Constitutional: This is a well developed, well nourished patient who is awake, alert, sb4 and in no acute distress. Head/Face: Normocephalic, atraumatic. Eyes: Extra-ocular motions intact. Periorbital areas with no swelling, redness, or edema. ENT: Mucous membranes moist. 14:44 Chest/axilla: Inspection: normal, Palpation: tenderness, left T6 distribution, 14:44 Skin: Warm, dry with normal turgor. Normal color with no rashes, no lesions, and no sb4 evidence of cellulitis. MS/ Extremity: Pulses equal, no cyanosis. Neurovascular intact. Full, normal range of motion. Neuro: Awake and alert, GCS 15, oriented to person, place, time, and situation. Motor strength 5/5 in all extremities. Sensory grossly intact. Vital Signs: 14:00 BP 105 / 79; Pulse 55; Resp 16 S; Temp 97.9(O); Pulse Ox 100% on R/A; Weight 67.13 kg as6 (R); Height 5 ft. 9 in. (R); Pain 10/10; 14:00 Body Mass Index 21.86 (67.13 kg, 175.26 cm) as6 14:00 Pain Scale: Adult as6 MDM: 14:04 Patient medically screened. sb4 14:44 Data reviewed: vital signs, nurses notes, and as a result, I will discharge patient. sb4 Administered Medications: 15:04 Drug: HYDROcodone-acetaminophen PO 5 mg-325 mg 2 tabs PO once Route: PO; nj1 16:00 Follow up: Response: No adverse reaction aa5 15:04 Drug: Gabapentin PO 300 mg PO once Route: PO; nj1 16:00 Follow up: Response: No adverse reaction aa5 15:04 Drug: Dexamethasone IM 10 mg IM once Route: IM; Site: right deltoid; nj1 16:00 Follow up: Response: No adverse reaction aa5 Disposition Summary: 03/13/24 15:41 Discharge Ordered Notes: Location: Home sb4 Problem: an ongoing problem sb4 Symptoms: have improved sb4 Condition: Stable sb4 Diagnosis - post-herpetic neuralgia sb4 Followup: sb4 - With: Tevin Garcia MD - When: 1 week - Reason: Recheck today's complaints, Re-evaluation by your physician Discharge Instructions: - Discharge Summary Sheet sb4 - Postherpetic Neuralgia sb4 Forms: - Work release form sb4 - Prescription Opioid Use sb4 - Patient Portal Instructions sb4 - Leadership Thank You Letter sb4 Prescriptions: - gabapentin 300 mg Oral capsule - take 1 capsule ORAL route 2 times per day; 30 capsule; Refills: 0, Product sb4 Selection Permitted - Tramadol 50 mg Oral Tablet - take 1 tablet ORAL route every 8 hours as needed; 12 tablet; Refills: 0, sb4 Product Selection Permitted - Prednisone 20 mg Oral Tablet - take 2 tablets ORAL route once daily for 5 days; 10 tablet; Refills: 0, Product sb4 Selection Permitted Signatures: Kenneth Duong RN RN as6 Rahda Zapien PA-C PAIndira sb4 Bere Stewart RN RN nj1 Lara Yuan RN aa5
[2024-03-13 17:02] VITALS: BP 105/79; TEMP 97.9; O2SAT 100
== END 2024-03-13 16:06 | disposition home or self-care (01) ==
LOC: ER 13:53
DX: B02.29 Other postherpetic nervous system involvement (principal); F17.210 Nicotine dependence, cigarettes, uncomplicated; Z88.1 Allergy status to other antibiotic agents; Z88.5 Allergy status to narcotic agent
CPT/HCPCS: 96372; 99284; J1100